=== PATIENT | female | born 1935 | race Caucasian/White ===

== ENCOUNTER → 2016-06-12 | Outpatient (CLI) | payer MEDICARE ==
[~2016-06-12] MED LIST: ALPR0.254 PO; ALPR0.2550 PO; AMLO10TA2 PO; AMLO10TA82 PO; ASCO500T5 PO; ASP81CT PO; ASPI-983 PO; ATOR10TA66 PO; CALC-250 PO; CALC-732 PO; CEFD300C3 PO; CEPH500C PO; CETI10CA PO; CHOL10003 PO; CHOL200012 PO; CHOL5000 PO; CLOP75TA28 PO; CRAN1CAP2 PO; CYAN10006 PO; CYAN100088 PO; CYAN1LOZ SL; DICY10CA12 PO; ESCI5TAB10 PO; FAMO20TA3 PO; FAMO20TA5 PO; FLT05NA16 NS; FLT11013 IH; FLUT100D IH; FLUT16SP22 NS; FLUT16SP22 NSEACH; IBUP-2055 PO; ISOS30TA3 PO; ISOS30TA7 PO; LACT1TAB11 PO; LISI-552 PO; MAGN250T13 PO; MAGN400C PO; NAPR220C11 PO; NEBI2.5T5 PO; NEBI5TAB8 PO; NFPRILOC40 PO; OMEG1CAP24 PO; OMEP20CA12 PO; OMEP20TA7 PO; OMG1KC PO; PANT40SU PO; PANT40TA2 PO; ROSU5TAB PO; RT-FLOV110 INH; SUCR1TAB PO
--- OUTSIDE RECORDS SUMMARY | 2016-06-12 11:06 | XMS REPORT | Continuity of Care Document ---
Author Author [facility] Organization [facility] Address Unknown Phone Unavailable Care Team Providers Care Vacuum Caster Name Role Phone Usman Mendez PCP [phone] Source Comments Some departments are not documenting in the electronic medical record. If you do not see the information that you expected, contact Release of Information in the Health Information Management department at [phone] for further assistance in locating additional records.[facility] Active Allergies and Adverse Reactions Not on File Current Medications Not on file Active Problems Not on file Social History Tobacco Use Types Packs/Day Years Used Date Never Assessed Plan of Care Health Maintenance Due Date Last Done Comments Physical (Comprehensive) 1940 Exam Pertussis Vaccine 1944 Tetanus Vaccine 1950 Breast Cancer Screening 1973 Shingles Vaccine 1993 Osteoporosis Screening 1998 Prevnar/Pneumovax (#1) 1998 Influenza Vaccine 11/28/2014 Results from Last 3 Months Not on file
--- NOTE | 2016-06-13 18:26 | Diagnostic Imaging Report ---
Bilateral screening mammogram The current study was also evaluated with a Computer Aided Detection (CAD) system. Indication: Screening. No current complaints stated on the questionnaire. COMPARISON: 3-2-16. FINDINGS: The breasts are composed of heterogeneously dense parenchyma which may decrease mammographic sensitivity. There are benign-appearing calcifications seen. Allowing for technique and positional differences, no suspicious change is seen. IMPRESSION: Dense breasts with no definite change. ACR BI-RADS Category 2: Benign findings. Result letter will be mailed to the patient. Note: At least 10% of breast cancer is not imaged by mammography. Dictated by: Dictated on workstation # [id number]
== END ==
LOC: RAD 11:02
PROVIDERS: ATTEND Nurse Practitioner Family
DX: Z12.31 Encounter for screening mammogram for malignant neoplasm of breast (principal)
CPT/HCPCS: 77067

== ENCOUNTER → 2016-06-23 | Outpatient (CLI) | payer MEDICARE ==
--- NOTE | 2016-06-23 13:39 | Diagnostic Imaging Report ---
INDICATION: Cough and dyspnea. TIME OF EXAMINATION: 1322 hours. TECHNIQUE: PA and lateral views of the chest were obtained. COMPARISON: 02/17/2016. FINDINGS: There is air trapping bilaterally. The heart size and pulmonary vascularity are within normal limits. There is no pneumothorax or consolidation. No significant pleural fluid is identified. IMPRESSION: Bilateral air trapping, consistent with emphysema; otherwise, no acute abnormality is detected. Dictated by: Dictated on workstation # [id number]
== END ==
LOC: RAD 12:59
PROVIDERS: ATTEND Nurse Practitioner Family
DX: J44.9 Chronic obstructive pulmonary disease, unspecified (principal); R06.00 Dyspnea, unspecified; R05 Cough
CPT/HCPCS: 71020

== ENCOUNTER 2016-06-27 15:59 | Emergency (ER) | payer MEDICARE ==
[~2016-06-27] VITALS: Ht 160 cm; Wt 59.0 kg
--- NOTE | 2016-06-27 18:08 | ED Trauma-Multisystem ---
General Chief Complaint: Trauma-Non Activation Stated Complaint: FALL Nursing Triage Note: AMBULATED TO ROOM 05 WITH COMPLAINTS OF TRIPPING OVER SHOES AND FALLING WHILE GOING TO GET THE MAIL. COMPLAINS OF STERNAL PAIN ET A CHIPPED FRONT TOOTH. Source of Information: Patient, Family Exam Limitations: No Limitations (BRIDGETTE MENDOZA MD) History of Present Illness Time Seen by Provider: 18:03 Initial Comments The patient is a 70-year-old white female known to me for 25-30 years. She reported that she had gone out to get the mail and that had tripped on her way back to the house apparently over her shoe. She pitched forward striking her chest which is quite tender on the left, both knees, and chipping her right upper incisor. She takes Plavix. Occurred: Just Prior to Arrival Pain/Injury Location: Chest, Face Method of Injury: Fall (BRIDGETTE MENDOZA MD) Allergies and Home Medications Allergies Coded Allergies: Sulfa (Sulfonamide Antibiotics) (Verified Allergy, Unknown, 03/10/06) amoxicillin (Verified Allergy, Unknown, 03/10/06) ciprofloxacin (Verified Allergy, Unknown, 01/02/16) gluten (Verified Allergy, Unknown, 01/02/16) iodamide meglumine (Verified Allergy, Unknown, 03/10/06) lactose (Verified Adverse Reaction, Mild, Diarrhea, 02/17/16) Uncoded Allergies: CONTRAST DYE (Allergy, Unknown, 12/19/13) Home Medications Alprazolam 0.25 Mg Tablet, 0.0625 MG PO QIDACHS, (Reported) TAKES 1/4 OF A (0.25 MG) TABLET Amlodipine Besylate 10 Mg Tablet, 10 MG PO DAILY, #30 Ref 2 Prescribed by: LULU ARROYO on 02/18/16 1137 Atorvastatin Calcium 10 Mg Tablet, 10 MG PO HS, #30 Ref 4 Prescribed by: LULU ARROYO on 02/18/16 1137 Cholecalciferol (Vitamin D3) 5,000 Unit Capsule, 5,000 UNIT PO DAILY, (Reported) Clopidogrel Bisulfate 75 Mg Tablet, 75 MG PO DAILY, (Reported) Cyanocobalamin (Vitamin B-12) 1,000 Mcg Tablet, 1,000 MCG PO DAILY, (Reported) Famotidine 20 Mg Tablet, 20 MG PO BID, (Reported) Fluticasone Propionate 1 Ea Aero, 2 PUFF IH BID, (Reported) Fluticasone Propionate 16 Gm Troy.susp, 1 SPRAY NSEACH DAILY, (Reported) Isosorbide Mononitrate 30 Mg Tab.er.24h, 30 MG PO DAILY, (Reported) Lactobacillus Combo No.6 1 Each Tablet, 1 CAP PO DAILY, (Reported) Lisinopril 20 Mg Tablet, 20 MG PO DAILY, #30 Ref 2 Prescribed by: LULU ARROYO on 02/18/16 1137 Nebivolol HCl 5 Mg Tablet, 2.5 MG PO BID, (Reported) TAKES 1/2 OF A (5 MG) TABLET Constitutional: see HPI Eyes: No Symptoms Reported Ears: No Symptoms Reported Nose: Other (abrasion left hip) Mouth: Loose Teeth (chipped right upper incisor) Throat: No Symptoms to Report Respiratory: no symptoms reported Cardiovascular: No Symptoms Reported Gastrointestinal: no symptoms reported Genitourinary: no symptoms reported Musculoskeletal: other (both knees hurt but she was able to walk) Skin: no symptoms reported Psychiatric/Neurological: No Symptoms Reported (BRIDGETTE MENDOZA MD) Past Cabwpmp-Udzgot-Xojdcm Hx Patient Social History Alcohol Use: Denies Use Recreational Drug Use: No Smoking Status: Never a Smoker Recent Foreign Travel: No Contact w/Someone Who Travel: No Recent Infectious Disease Expo: No Recent Hopitalizations: No (BRIDGETTE MENDOZA MD) Immunizations Up To Date Tetanus Booster (TDap): More than 5yrs Date of Pneumonia Vaccine: Feb 27, 2015 Date of Influenza Vaccine: Dec 29, 2015 (BRIDGETTE MENDOZA MD) Seasonal Allergies Seasonal Allergies: No (BRIDGETTE MENDOZA MD) Surgeries HX Surgeries: Yes (Hemorrhoids, benign bladder tumor, neck vertebra fusion, left cataraact) Surgeries: Hysterectomy (BRIDGETTE MENDOZA MD) Respiratory Hx Respiratory Disorders: Yes Respiratory Disorders: COPD (BRIDGETTE MENDOZA MD) Cardiovascular Hx Cardiac Disorders: Yes Cardiac Disorders: Hypertension (BRIDGETTE MENDOZA MD) Neurological Hx Neurological Disorders: No (BRIDGETTE MENDOZA MD) Reproductive System Hx Reproductive Disorders: No Sexually Transmitted Disease: No HIV/AIDS: No Female Reproductive Disorders: Denies HAND CELL TUBER History: Hysterectomy (BRIDGETTE MENDOZA MD) Genitourinary Hx Genitourinary Disorders: Yes (benign bladder tumor removed) Genitourinary Disorders: Bladder Infection (BRIDGETTE MENDOZA MD) Gastrointestinal Hx Gastrointestinal Disorders: Yes Gastrointestinal Disorders: Gastroesophageal Reflux, Hiatal Hernia (BRIDGETTE MENDOZA MD) Musculoskeletal Hx Musculoskeletal Disorders: Yes (Hx hammertoe surgery) Musculoskeletal Disorders: Arthritis (BRIDGETTE MENDOZA MD) Endocrine Hx Endocrine Disorders: No (BRIDGETTE MENDOZA MD) HEENT HX ENT Disorders: Yes (bilat cataract surgery) HEENT Disorders: Cataract Loss of Vision: Denies Hearing Impairment: Denies (BRIDGETTE MENDOZA MD) Cancer Hx Cancer: No (BRIDGETTE MENDOZA MD) Psychosocial Hx Psychiatric Problems: Yes Behavioral Health Disorders: Anxiety (BRIDGETTE MENDOZA MD) Integumentary HX Skin/Integumentary Disorder: No (BRIDGETTE MENDOZA MD) Blood Transfusions Hx Blood Disorders: No Adverse Reaction to a Blood Tr: No (BRIDGETTE MENDOZA MD) Family Medical History Significant Family History: No Pertinent Family Hx Family Medial History: Parkinson's disease G8 BROTHER (BRIDGETTE MENDOZA MD) Family Medial History: Parkinson's disease G8 BROTHER (FARIBA SHEA MD) Physical Exam Vital Signs Vital Sign - Last 12Hours 06/27/16 17:37 Temp 98.0 Pulse 78 Resp 16 B/P (MAP) 213/88 Pulse Ox 98 (FARIBA SHEA MD) Temperature (Fahrenheit): 98.0 General Appearance: Mild Distress Head: Other (small abrasion tip of nose) Eyes: Bilateral Eye Normal Inspection Ears, Nose, Throat: Hearing Grossly Normal, Dental Injury Neck: Full Range of Motion Cardiovascular: Regular Rate, Rhythm, No Edema, No Gallop, No JVD, No Murmur, Normal Peripheral Pulses Respiratory: Chest Non Tender, Lungs Clear, Normal Breath Sounds, No Accessory Muscle Use, No Respiratory Distress Gastrointestinal: Normal Bowel Sounds, No Organomegaly, No Pulsatile Mass, Non Tender, Soft Extremity: Normal Range of Motion, Other Neurologic/Psychiatric: Alert, Oriented x3, No Motor/Sensory Deficits, Normal Mood/Affect Skin: Normal Color, Warm/Dry Lymphatic: No Adenopathy (BRIDGETTE MENDOZA MD) Mary Coma Score Best Eye Response ([place]berry): (4) Open Spontaneously Best Verbal Response (Mary): (5) Oriented Best Motor Response ([place]berry): (6) Obeys Commands (BRIDGETTE MENDOZA MD) Progress/Results/Core Measures Results/Orders Lab Results Laboratory Tests Test 06/27/16 17:29 06/27/16 17:30 Range/Units White Blood Count 10.2 4.3-11.0 10^3/uL Red Blood Count 4.30 L 4.35-5.85 10^6/uL Hemoglobin 13.0 11.5-16.0 G/DL Hematocrit 39 35-52 % Mean Corpuscular Volume 90 80-99 FL Mean Corpuscular Hemoglobin 30 25-34 PG Mean Corpuscular Hemoglobin Concent 34 32-36 G/DL Red Cell Distribution Width 14.5 10.0-14.5 % Platelet Count 273 130-400 10^3/uL Mean Platelet Volume 10.4 7.4-10.4 FL Neutrophils (%) (Auto) 72 42-75 % Lymphocytes (%) (Auto) 18 12-44 % Monocytes (%) (Auto) 9 0-12 % Eosinophils (%) (Auto) 1 0-10 % Basophils (%) (Auto) 0 0-10 % Neutrophils # (Auto) 7.4 1.8-7.8 X 10^3 Lymphocytes # (Auto) 1.8 1.0-4.0 X 10^3 Monocytes # (Auto) 0.9 0.0-1.0 X 10^3 Eosinophils # (Auto) 0.1 0.0-0.3 10^3/uL Basophils # (Auto) 0.0 0.0-0.1 10^3/uL Prothrombin Time 13.0 12.2-14.7 SEC INR Comment 1.0 0.8-1.4 Activated Partial Thromboplast Time 30 24-35 SEC Sodium Level 131 L 135-145 MMOL/L Potassium Level 4.0 3.6-5.0 MMOL/L Chloride Level 95 L 98-107 MMOL/L Carbon Dioxide Level 28 21-32 MMOL/L Anion Gap 8 5-14 MMOL/L Blood Urea Nitrogen 15 7-18 MG/DL Creatinine 0.99 0.60-1.30 MG/DL Estimat Glomerular Filtration Rate 54 BUN/Creatinine Ratio 15 Glucose Level 101 70-105 MG/DL Calcium Level 9.4 8.5-10.1 MG/DL Total Bilirubin 0.4 0.1-1.0 MG/DL Aspartate Amino Transf (AST/SGOT) 24 5-34 U/L Alanine Aminotransferase (ALT/SGPT) 17 0-55 U/L Alkaline Phosphatase 77 40-136 U/L Total Protein 7.0 6.4-8.2 G/DL Albumin 3.9 3.2-4.5 G/DL Urine Color YELLOW Urine Clarity CLEAR Urine pH 6 5-9 Urine Specific [place] 1.010 L 1.016-1.022 Urine Protein NEGATIVE NEGATIVE Urine Glucose (UA) NEGATIVE NEGATIVE Urine Ketones NEGATIVE NEGATIVE Urine Nitrite NEGATIVE NEGATIVE Urine Bilirubin NEGATIVE NEGATIVE Urine Urobilinogen NORMAL NORMAL MG/DL Urine Leukocyte Esterase NEGATIVE NEGATIVE Urine RBC (Auto) 1+ H NEGATIVE Urine RBC NONE /HPF Urine WBC NONE /HPF Urine Squamous Epithelial Cells 0-2 /HPF Urine Crystals NONE /LPF Urine Bacteria NONE /HPF Urine Casts NONE /LPF Urine Mucus NEGATIVE /LPF Urine Culture Indicated NO (FARIBA SHEA MD) My Orders Orders - FARIBA SHEA MD Ct Chest Wo (06/27/16 18:14) Ct Head/Cervical Spine Wo (06/27/16 18:14) Saline Lock/Iv-Start (06/27/16 18:14) Protime With Inr (06/27/16 18:14) Partial Thromboplastin Time (06/27/16 18:14) Ua Culture If Indicated (06/27/16 18:14) (FARIBA SHEA MD) Vital Signs/I&O Vital Sign - Last 12Hours 06/27/16 06/27/16 17:37 19:42 Temp 98.0 98.8 Pulse 78 72 Resp 16 16 B/P (MAP) 213/88 Pulse Ox 98 99 (FARIBA SHEA MD) Blood Pressure Mean: 129 Progress Note : Time: 18:05 Progress Note Care of this patient was assumed from Dr. Mendoza. Patient complained of chest tenderness and pain with inspiration. She is concerned about internal chest injury. She also has contusion to the bridge of the nose. CT of the head and C -spine as well as CT of the chest were ordered for evaluation of her injuries. Patient does have a history of Plavix use in bleeding is therefore a valid concern. No acute traumatic injuries were found on imaging. Patient was dismissed home in good condition. (FARIBA SHEA MD) Diagnostic Imaging Diagonstic Imaging: CT Plain Films/CT/US/NM/MRI: c-spine, head Comments CT head and C-spine viewed by me and report reviewed. See report below: NAME: [facility] REC#: [id number] PT STATUS: REG ER : 1935 PHYSICIAN: FARIBA SHEA MD ADMIT DATE: 06/27/16/ER Draft Date of Exam:06/27/16 CT HEAD/CERVICAL SPINE WO PROCEDURE: CT head and CT cervical spine without contrast. TECHNIQUE: Multiple contiguous axial images were obtained through the brain and cervical spine without the use of intravenous contrast. Sagittal and coronal reformations through the cervical spine were then performed. INDICATION: 80-year-old female presents to the ER injured in fall, hit her nose, chipped front tooth, headache and neck pain, sternal pain. COMPARISON: 01/24/16 CT head without contrast: FINDINGS: Midline structures are not displaced. There are senescent changes of brain with involutional changes and mild atrophy. Some mild background chronic microvascular ischemic change age-appropriate. Baez-white differentiation is well maintained and there is no sulcal effacement. There are no abnormal extra-axial fluid collections or hemorrhage. There is calcific atherosclerosis within the carotid siphons and visualized vertebral arteries. There is some mild chronic maxillary, ethmoid sinus disease. Orbits and mastoid air cells are normal. Bone windows show no calvarial changes. IMPRESSION: 1. Senescent brain but no acute findings identified by nonenhanced CT criteria. 2. Mild chronic ethmoid and maxillary sinus disease. CT cervical spine with reconstructions: FINDINGS: Axial images and sagittal and coronal reconstructions of the cervical spine demonstrate moderate cervical spondylosis. There is partial fusion of C5, C6 and C7. There is grade 1 anterolisthesis of C7 on T1, age-indeterminate. There is also mild grade 1 anterolisthesis of C4 on C5 as well as C3 on C4 which is felt to be chronic. Vertebral body heights appear well maintained. There is a previous right laminectomy extending from C4, C5, C6 and C7. There are moderate to severe multilevel hypertrophic facet changes. No definite acute fractures identified. Prevertebral soft tissue as well as a predental space and the relationship of the dens to the lateral mass of C1 is reasonably well maintained. Parapharyngeal and paraspinous soft tissues are also grossly normal. 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 Superior mediastinum is grossly unremarkable. The visualized lung apices are also grossly normal. IMPRESSION: 1. Previous right laminectomy from C3 through C7. 2. Grade 1 anterolisthesis of C7 on T1, age indeterminate. 3. Probable chronic grade 1 anterolisthesis of C3 on C4 as well as C4 on C5, correlate clinically. Flexion-extension view of the cervical spine and/or MRI may be of further value. 4. There is moderate cervical spondylosis with multilevel hypertrophic facet changes. There are also uncovertebral osteophytes which do contribute to some neuroforaminal compromise at multiple levels. 5. 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 Additional nonemergent findings as described above. Dictated on workstation # [id number] Dict: 06/27/16 1832 Trans: 06/27/16 1843 [facility] [id number] Interpreted by: CHERIE VAZQUEZ MD Diagonstic Imaging: CT Plain Films/CT/US/NM/MRI: chest Comments CT chest viewed by me and report reviewed. See report below: NAME: [facility] REC#: [id number] PT STATUS: REG ER : 1935 PHYSICIAN: FARIBA SHEA MD ADMIT DATE: 06/27/16/ER Draft Date of Exam:06/27/16 CT CHEST WO PROCEDURE: CT chest without contrast. TECHNIQUE: Multiple contiguous axial images were obtained through the chest without the use of intravenous contrast. INDICATION: Fall with pain under sternal region. COMPARISON: None available. FINDINGS: Lungs and airway: No endoluminal lesion in the trachea or central bronchi. No pulmonic consolidation to suggest contusion or laceration. No concerning pulmonary mass or nodule. Pleura: No pleural effusion or pneumothorax. Heart and mediastinum: Visualized thyroid is normal. No evidence of mediastinal hemorrhage. No intrathoracic lymphadenopathy. Normal heart size without pericardial effusion. Tiny hiatus hernia. Normal caliber abdominal aorta with moderate atherosclerotic calcifications. Upper abdomen: No evidence of acute traumatic injury in the upper abdomen by noncontrast imaging, which is suboptimal in evaluation of the abdominal viscera. Musculoskeletal: No acute rib fracture. No acute sternal fracture. IMPRESSION: 1. No acute traumatic injury in the chest by noncontrast imaging. 2. No acute rib fracture or sternal fracture. Dictated on workstation # [id number] Dict: 06/27/16 1836 Trans: 06/27/16 1841 [facility] [id number] Interpreted by: HARRIET ORDAZ MD (FARIBA SHEA MD) Departure Impression Impression: Primary Impression: Fall on same level from tripping as cause of accidental injury Additional Impressions: Facial contusion Qualified Codes: S00.83XA - Contusion of other part of head, initial encounter Chest wall contusion Qualified Codes: S20.219A - Contusion of unspecified front wall of thorax, initial encounter Disposition: 01 HOME, SELF-CARE Condition: Stable Departure-Patient Inst. Decision time for Depature: 19:30 (FARIBA SHEA MD) Referrals: JA DURAN MD (PCP/Family) Primary Care Physician Patient Instructions: CHEST CONTUSION Add. Discharge Instructions: You may take Tylenol up to 1000 mg every 6 hours as needed for pain. Return to care if symptoms worsen. All discharge instructions reviewed with patient and/or family. Voiced understanding. BRIDGETTE MENDOZA MD Jun 27, 2016 18:08 FARIBA SHEA MD Jun 27, 2016 18:57
[2016-06-27 18:19] LABS: BASOPHILS % (AUTO) 0 % (0-10); EOSINOPHILS # (AUTO) 0.1 10^3/uL (0.0-0.3); EOSINOPHILS % (AUTO) 1 % (0-10); LYMPHOCYTES # (AUTO) 1.8 X 10^3 (1.0-4.0); LYMPHOCYTES % (AUTO) 18 % (12-44); MEAN CORPUSCULAR HEMOGLOBIN 30 PG (25-34); MEAN CORPUSCULAR HGB CONC 34 G/DL (32-36); MEAN CORPUSCULAR VOLUME 90 FL (80-99); MEAN PLATELET VOLUME 10.4 FL (7.4-10.4); MONOCYTES # (AUTO) 0.9 X 10^3 (0.0-1.0); MONOCYTES % (AUTO) 9 % (0-12); NEUTROPHILS # (AUTO) 7.4 X 10^3 (1.8-7.8); NEUTROPHILS % (AUTO) 72 % (42-75); PLATELET COUNT 273 10^3/uL (130-400); RED CELL DISTRIBUTION WIDTH 14.5 % (10.0-14.5); WHITE BLOOD COUNT 10.2 10^3/uL (4.3-11.0)
[2016-06-27 18:34] LABS: ALBUMIN 3.9 G/DL (3.2-4.5); BILIRUBIN,TOTAL 0.4 MG/DL (0.1-1.0); CALCIUM 9.4 MG/DL (8.5-10.1); CREATININE SERUM 0.99 MG/DL (0.60-1.30)
--- NOTE | 2016-06-27 18:41 | Diagnostic Imaging Report ---
PROCEDURE: CT chest without contrast. TECHNIQUE: Multiple contiguous axial images were obtained through the chest without the use of intravenous contrast. INDICATION: Fall with pain under sternal region. COMPARISON: None available. FINDINGS: Lungs and airway: No endoluminal lesion in the trachea or central bronchi. No pulmonic consolidation to suggest contusion or laceration. No concerning pulmonary mass or nodule. Pleura: No pleural effusion or pneumothorax. Heart and mediastinum: Visualized thyroid is normal. No evidence of mediastinal hemorrhage. No intrathoracic lymphadenopathy. Normal heart size without pericardial effusion. Tiny hiatus hernia. Normal caliber abdominal aorta with moderate atherosclerotic calcifications. Upper abdomen: No evidence of acute traumatic injury in the upper abdomen by noncontrast imaging, which is suboptimal in evaluation of the abdominal viscera. Musculoskeletal: No acute rib fracture. No acute sternal fracture. IMPRESSION: 1. No acute traumatic injury in the chest by noncontrast imaging. 2. No acute rib fracture or sternal fracture. Dictated by: Dictated on workstation # [id number]
[2016-06-27 18:43] LABS: BILIRUBIN,URINE NEGATIVE (NEGATIVE); KETONES,URINE NEGATIVE (NEGATIVE); LEUKOCYTE ESTERASE ,URINE NEGATIVE (NEGATIVE); NITRITE,URINE NEGATIVE (NEGATIVE); PH,URINE 6 (5-9); PROTEIN,URINE NEGATIVE (NEGATIVE); UROBILINOGEN,URINE NORMAL (NORMAL)
--- NOTE | 2016-06-27 18:44 | Diagnostic Imaging Report ---
PROCEDURE: CT head and CT cervical spine without contrast. TECHNIQUE: Multiple contiguous axial images were obtained through the brain and cervical spine without the use of intravenous contrast. Sagittal and coronal reformations through the cervical spine were then performed. INDICATION: 80-year-old female presents to the ER injured in fall, hit her nose, chipped front tooth, headache and neck pain, sternal pain. COMPARISON: 01/24/16 CT head without contrast: FINDINGS: Midline structures are not displaced. There are senescent changes of brain with involutional changes and mild atrophy. Some mild background chronic microvascular ischemic change age-appropriate. Baez-white differentiation is well maintained and there is no sulcal effacement. There are no abnormal extra-axial fluid collections or hemorrhage. There is calcific atherosclerosis within the carotid siphons and visualized vertebral arteries. There is some mild chronic maxillary, ethmoid sinus disease. Orbits and mastoid air cells are normal. Bone windows show no calvarial changes. IMPRESSION: 1. Senescent brain but no acute findings identified by nonenhanced CT criteria. 2. Mild chronic ethmoid and maxillary sinus disease. CT cervical spine with reconstructions: FINDINGS: Axial images and sagittal and coronal reconstructions of the cervical spine demonstrate moderate cervical spondylosis. There is partial fusion of C5, C6 and C7. There is grade 1 anterolisthesis of C7 on T1, age-indeterminate. There is also mild grade 1 anterolisthesis of C4 on C5 as well as C3 on C4 which is felt to be chronic. Vertebral body heights appear well maintained. There is a previous right laminectomy extending from C4, C5, C6 and C7. There are moderate to severe multilevel hypertrophic facet changes. No definite acute fractures identified. Prevertebral soft tissue as well as a predental space and the relationship of the dens to the lateral mass of C1 is reasonably well maintained. Parapharyngeal and paraspinous soft tissues are also grossly normal. 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 Superior mediastinum is grossly unremarkable. The visualized lung apices are also grossly normal. IMPRESSION: 1. Previous right laminectomy from C3 through C7. 2. Grade 1 anterolisthesis of C7 on T1, age indeterminate. 3. Probable chronic grade 1 anterolisthesis of C3 on C4 as well as C4 on C5, correlate clinically. Flexion-extension view of the cervical spine and/or MRI may be of further value. 4. There is moderate cervical spondylosis with multilevel hypertrophic facet changes. There are also uncovertebral osteophytes which do contribute to some neuroforaminal compromise at multiple levels. 5. 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 Additional nonemergent findings as described above. Dictated by: Dictated on workstation # [id number]
[2016-06-27 19:21] LABS: SQUAMOUS EPITHELIAL CELL,UR 0-2 /HPF
[2016-06-27 19:42] VITALS: BP 147/70
--- OUTSIDE RECORDS SUMMARY | 2016-07-20 09:24 | XMS REPORT | Continuity of Care Document ---
Author Author [facility] Organization [facility] Address Unknown Phone Unavailable Care Team Providers Care Seam Sewer Name Role Phone Ruthie Mendez PCP [phone] Source Comments Some departments are not documenting in the electronic medical record. If you do not see the information that you expected, contact Release of Information in the Health Information Management department at [phone] for further assistance in locating additional records.[facility] Active Allergies and Adverse Reactions Not on File Current Medications Not on file Active Problems Not on file Social History Tobacco Use Types Packs/Day Years Used Date Never Assessed Plan of Care Health Maintenance Due Date Last Done Comments Physical (Comprehensive) 1940 Exam Pertussis Vaccine 1944 Tetanus Vaccine 1950 Shingles Vaccine 1993 Osteoporosis Screening 1998 Prevnar/Pneumovax (#1) 1998 Influenza Vaccine 11/28/2016 Results from Last 3 Months Not on file
--- OUTSIDE RECORDS SUMMARY | 2016-07-20 09:26 | XMS REPORT | Continuity of Care Document ---
Author Author [facility] Organization [facility] Address Unknown Phone Unavailable Allergies Active Description Code Type Severity Reaction Onset Reported/Identified Relationship to Patient Clinical Status Yes iodamide meglumine [id number] Drug Allergy Unknown N/A 03/10/2006 Yes CONTRAST DYE CONTRAST DYE Unknown N/A 12/19/2013 Yes amoxicillin [id number] Drug Allergy Unknown N/A 01/02/2016 Yes ciprofloxacin [id number] Drug Allergy Unknown N/A 01/02/2016 Yes gluten [id number] Drug Allergy Unknown N/A 01/02/2016 Yes Sulfa (Sulfonamide Antibiotics) [id number] Drug Allergy Unknown N/A 01/02/2016 Yes lactose [id number] Drug Allergy Mild Diarrhea 02/17/2016 Medications Problems Date Dx Coded Attending Type Code Diagnosis Diagnosed By 03/04/2010 Ot 272.4 03/04/2010 Ot 401.9 03/04/2010 Ot 414.01 03/04/2010 Ot 530.11 03/04/2010 Ot 530.81 03/04/2010 Ot 553.3 03/04/2010 Ot V12.79 04/18/2010 Ot 401.9 HYPERTENSION NOS 04/18/2010 Ot 440.1 RENAL ARTERY ATHEROSCLER 04/18/2010 Ot 530.11 REFLUX ESOPHAGITIS 04/18/2010 Ot 553.3 DIAPHRAGMATIC HERNIA 05/30/2010 Ot 401.9 HYPERTENSION NOS 05/30/2010 Ot 599.0 URIN TRACT INFECTION NOS 05/30/2010 Ot 791.6 ACETONURIA 06/25/2010 Ot 789.09 ABDOMINAL PAIN, OTHER SPECIFIED SITE 11/14/2010 Ot 780.4 DIZZINESS AND GIDDINESS 11/14/2010 Ot V57.1 PHYSICAL THERAPY NEC 07/23/2011 Ot 789.09 ABDOMINAL PAIN, OTHER SPECIFIED SITE 07/31/2011 Ot 723.1 CERVICALGIA 07/31/2011 Ot V57.1 PHYSICAL THERAPY NEC 01/26/2012 Ot 401.9 HYPERTENSION NOS 01/26/2012 Ot 530.81 ESOPHAGEAL REFLUX 01/26/2012 Ot 535.50 UNSP GASTRITIS GASTRODUODENITIS W/O ME 01/26/2012 Ot 553.3 DIAPHRAGMATIC HERNIA 01/26/2012 Ot 562.10 DIVERTICULOSIS COLON (W/O MENT OF HEMORR 12/04/2012 BRIDGETTE MENDOZA MD Ot 599.0 URIN TRACT INFECTION NOS 12/04/2012 BRIDGETTE MENDOZA MD Ot 959.01 HEAD INJURY, NOS 12/04/2012 BRIDGETTE MENDOZA MD Ot E000.8 OTHER EXTERNAL CAUSE STATUS 12/04/2012 BRIDGETTE MENDOZA MD Ot E849.0 ACCIDENT IN HOME 12/04/2012 BRIDGETTE MENDOZA MD Ot E888.9 FALL NOS 12/19/2013 EVE DOMINIQUE, RON Turpin Ot 530.10 ESOPHAGITIS NOS 12/19/2013 EVE DOMINIQUE, RON Turpin Ot 535.40 OTH SPECIFIED GASTRITIS,W/O MENTION OF H 12/19/2013 RON PRADO MD Ot 535.50 UNSP GASTRITIS GASTRODUODENITIS W/O ME 12/19/2013 EVE DOMINIQUE, RON Turpin Ot 562.10 DIVERTICULOSIS COLON (W/O MENT OF HEMORR 05/24/2014 Ot V76.12 05/24/2014 Ot 723.1 05/24/2014 Ot 211.1 05/24/2014 Ot 530.11 05/24/2014 Ot 535.41 05/24/2014 Ot 553.3 05/24/2014 Ot 562.10 05/24/2014 Ot 562.10 05/24/2014 Ot 401.9 05/24/2014 Ot 440.1 05/24/2014 Ot V72.63 05/24/2014 Ot V74.8 05/24/2014 Ot V76.12 05/24/2014 Ot 401.9 05/24/2014 Ot 599.0 05/24/2014 Ot 791.6 05/24/2014 Ot 331.4 05/24/2014 Ot 473.0 05/24/2014 Ot 473.2 05/24/2014 Ot 473.3 05/24/2014 Ot 530.81 05/24/2014 Ot 787.01 05/24/2014 Ot 789.00 05/24/2014 Ot 723.1 05/24/2014 Ot V45.4 05/24/2014 Ot V72.84 05/24/2014 Ot 562.10 05/24/2014 Ot 625.9 05/24/2014 Ot 789.04 05/24/2014 Ot 397.0 05/24/2014 Ot 414.00 05/24/2014 Ot 424.0 05/24/2014 Ot 786.50 05/24/2014 Ot 414.00 05/24/2014 Ot 786.50 05/24/2014 Ot V76.12 05/24/2014 ROGER DOMINIQUE, JA Mary Ot 786.09 05/24/2014 GILMAR VILLATORO DO Ot 300.00 05/24/2014 GILMAR VILLATORO DO Ot 477.9 05/24/2014 GILMAR VILLATORO DO Ot 491.20 05/24/2014 GILMAR VILLATORO DO Ot 530.81 05/24/2014 BELEN MITTALP Ot V76.12 05/24/2014 BELEN MITTAL INSTRUCTION DEAN Ot 780.79 05/24/2014 BELEN MITTAL INSTRUCTION DEAN Ot 784.0 05/24/2014 BELEN MITTAL INSTRUCTION DEAN Ot V15.88 05/24/2014 DINA DOMINIQUE, LULU Bahena Ot 401.9 05/24/2014 DINA DOMINIQUE, LULU Bahena Ot 414.00 05/24/2014 LULU ARROYO MD Ot 786.50 05/24/2014 KISHORE PILLAI Ot 401.9 05/24/2014 KISHORE PILLAI Ot 414.00 05/24/2014 KISHORE PILLAI Ot 786.50 05/24/2014 EVE DOMINIQUE, RON Turpin Ot V72.84 07/11/2014 BELEN MITTALP Ot 786.2 08/09/2014 Ot 401.9 08/09/2014 Ot 599.0 08/09/2014 Ot 791.6 08/10/2014 JUAN DOMINIQUE, MAHSA De La Cruz Ot 562.10 DIVERTICULOSIS COLON (W/O MENT OF HEMORR 08/10/2014 JUAN DOMINIQUE, MAHSA De La Cruz Ot 569.49 RECTAL ANAL DIS NEC 01/08/2015 KASSANDRA MONTANEZ APRN Ot 491.20 01/08/2015 KASSANDRA MONTANEZ APRN Ot 786.09 03/19/2015 KASSANDRA MONTANEZ STAMPING D[employer] MAKER BENCH Ot J30.9 03/19/2015 KASSANDRA MONTANEZ STAMPING [employer] MAKER BENCH Ot J44.9 03/19/2015 KASSANDRA MONTANEZ STAMPING [employer] MAKER BENCH Ot R06.00 03/19/2015 KASSANDRA MONTANEZ STAMPING [employer] MAK[employer] BENCH Ot R07.89 03/27/2015 DINA DOMINIQUE, LULU Bahena Ot E78.5 03/27/2015 DINA DOMINIQUE, LULU Bahena Ot I10 03/27/2015 DINA DOMINIQUE, LULU Bahena Ot I25.10 03/27/2015 DINA DOMINIQUE, LULU Bahena Ot I65.23 03/27/2015 DINA DOMINIQUE, LULU Bahena Ot R07.89 06/12/2015 ROGER DOMINIQUE, JA Mary Ot Z12.31 06/20/2015 DOUGLAS MONDRAGON STAMPING D[employer] MAKER BENCH Ot K59.00 07/04/2015 DOUGLAS MONDRAGON STAMPING [employer] MAKER BENCH Ot K59.00 09/15/2015 Ot V76.12 OTH SCREEN MAMMO-MALIGN NEOPLASM OF [place] 09/15/2015 Ot 401.9 HYPERTENSION NOS 09/15/2015 Ot 440.1 RENAL ARTERY ATHEROSCLER 09/15/2015 Ot V72.63 PRE-PROCEDURAL LABORATORY EXAMINATION 09/15/2015 Ot V74.8 SCREEN-BACTERIAL DIS NEC 09/15/2015 Ot V76.12 OTH SCREEN MAMMO-MALIGN NEOPLASM OF [place] 09/15/2015 Ot 401.9 HYPERTENSION NOS 09/15/2015 Ot 599.0 URIN TRACT INFECTION NOS 09/15/2015 Ot 791.6 ACETONURIA 09/15/2015 Ot 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 09/15/2015 Ot 473.0 CHR MAXILLARY SINUSITIS 09/15/2015 Ot 473.2 CHR ETHMOIDAL SINUSITIS 09/15/2015 Ot 473.3 CHR SPHENOIDAL SINUSITIS 09/15/2015 Ot 530.81 ESOPHAGEAL REFLUX 09/15/2015 Ot 787.01 NAUSEA WITH VOMITING 09/15/2015 Ot 789.00 ABDOMINAL PAIN, UNSPECIFIED SITE 09/15/2015 Ot 723.1 CERVICALGIA 09/15/2015 Ot V45.4 ARTHRODESIS STATUS 09/15/2015 Ot V72.84 EXAM PRE-OPERATIVE NOS 09/15/2015 Ot 562.10 DIVERTICULOSIS COLON (W/O MENT OF HEMORR 09/15/2015 Ot 625.9 FEM GENITAL SYMPTOMS NOS 09/15/2015 Ot 789.04 ABDOMINAL PAIN, LEFT LOWER QUADRANT 09/15/2015 Ot 397.0 TRICUSPID VALVE DISEASE 09/15/2015 Ot 414.00 CORON ATHEROSCLER NOS TYPE VESSEL, NATIV 09/15/2015 Ot 424.0 MITRAL VALVE DISORDER 09/15/2015 Ot 786.50 CHEST PAIN NOS 09/15/2015 Ot 414.00 CORON ATHEROSCLER NOS TYPE VESSEL, NATIV 09/15/2015 Ot 786.50 CHEST PAIN NOS 09/15/2015 Ot V76.12 OTH SCREEN MAMMO-MALIGN NEOPLASM OF [place] 09/15/2015 ROGER DOMINIQUE, JA Mary Ot 786.09 RESPIRATORY ABNORM NEC 09/15/2015 GILMAR VILLATORO DO Ot 300.00 ANXIETY STATE NOS 09/15/2015 GILMAR VILLATORO DO Ot 477.9 ALLERGIC RHINITIS NOS 09/15/2015 GILMAR VILLATORO DO Ot 491.20 OBSTR CHRONIC BRONCHITIS, W/O EXACERBATI 09/15/2015 GILMAR VILLATORO DO Ot 530.81 ESOPHAGEAL REFLUX 09/15/2015 BELEN MITTALP Ot V76.12 OTH SCREEN MAMMO-MALIGN NEOPLASM OF [place] 09/15/2015 BELEN MITTAL INSTRUCTION DEAN Ot 780.79 OTH MALAISE FATIGUE 09/15/2015 BELEN MITTAL INSTRUCTION DEAN Ot 784.0 HEADACHE 09/15/2015 BELEN MITTAL INSTRUCTION DEAN Ot V15.88 HISTORY OF FALL 09/15/2015 DINA DOMINIQUE, LULU Bahena Ot 401.9 HYPERTENSION NOS 09/15/2015 LULU ARROYO MD Ot 414.00 CORON ATHEROSCLER NOS TYPE VESSEL, NATIV 09/15/2015 LULU ARROYO MD Ot 786.50 CHEST PAIN NOS 09/15/2015 KISHORE PILLAI Ot 401.9 HYPERTENSION NOS 09/15/2015 KISHORE PILLAI Ot 414.00 CORON ATHEROSCLER NOS TYPE VESSEL, NATIV 09/15/2015 KISHORE PILLAI Ot 786.50 CHEST PAIN NOS 09/15/2015 EVE DOMINIQUE, RON Turpin Ot V72.84 EXAM PRE-OPERATIVE NOS 09/15/2015 Ot V76.12 OTH SCREEN MAMMO-MALIGN NEOPLASM OF [place] 09/15/2015 MITTALBELEN INSTRUCTION DEAN Ot 786.2 COUGH 09/15/2015 JUAN DOMINIQUE, MAHSA De La Cruz Ot V72.84 EXAM PRE-OPERATIVE NOS 09/15/2015 KASSANDRA MONTANEZ STAMPING [employer] MAK[employer] BENCH Ot 491.20 OBSTR CHRONIC BRONCHITIS, W/O EXACERBATI 09/15/2015 KASSANDRA MONTANEZ STAMPING [employer] MAKER BENCH Ot 786.09 RESPIRATORY ABNORM NEC 09/15/2015 KASSANDRA MONTANEZ STAMPING [employer] MAKER BENCH Ot J30.9 ALLERGIC RHINITIS, UNSPECIFIED 09/15/2015 KASSANDRA MONTANEZ STAMPING D[employer] MAKER BENCH Ot J44.9 CHRONIC OBSTRUCTIVE PULMONARY DISEASE , U 09/15/2015 KASSANDRA MONTANEZ APRN Ot R06.00 DYSPNEA, UNSPECIFIED 09/15/2015 KASSANDRA MONTANEZ STAMPING [employer] MAKER BENCH Ot R07.89 OTHER CHEST PAIN 09/15/2015 LULU ARROYO MD Ot E78.5 HYPERLIPIDEMIA, UNSPECIFIED 09/15/2015 LULU ARROYO MD Ot I10 ESSENTIAL (PRIMARY) HYPERTENSION 09/15/2015 LULU ARROYO MD Ot I25.10 ATHSCL HEART DISEASE OF [place] CORONARY 09/15/2015 LULU ARROYO MD Ot I65.23 OCCLUSION AND STENOSIS OF BILATERAL [place] 09/15/2015 LULU ARROYO MD Ot R07.89 OTHER CHEST PAIN 09/15/2015 JA DURAN MD Ot Z12.31 ENCNTR SCREEN MAMMOGRAM FOR MALIGNANT NE 09/15/2015 DOUGLAS MONDRAGON STAMPING [employer] MAKER BENCH Ot K59.00 CONSTIPATION, UNSPECIFIED 09/15/2015 JA DURAN MD Ot E78.5 HYPERLIPIDEMIA, UNSPECIFIED 09/15/2015 JA DURAN MD Ot F41.9 ANXIETY DISORDER, UNSPECIFIED 09/15/2015 JA DURAN MD Ot I10 ESSENTIAL (PRIMARY) HYPERTENSION 09/15/2015 JA DURAN MD Ot I25.10 ATHSCL HEART DISEASE OF [place] CORONARY 09/15/2015 JA DURAN MD Ot I65.23 OCCLUSION AND STENOSIS OF BILATERAL WHITE 09/15/2015 JA DURAN MD Ot J44.9 CHRONIC OBSTRUCTIVE PULMONARY DISEASE, U 09/15/2015 JA DURAN MD Ot K21.9 GASTRO-ESOPHAGEAL REFLUX DISEASE WITHOUT 09/15/2015 JA DURAN MD Ot K27.9 PEPTIC ULC, SITE UNSP, UNSP AC OR CHR 09/15/2015 JA DURAN MD Ot K44.9 DIAPHRAGMATIC HERNIA WITHOUT OBSTRUCTION 09/15/2015 JA DURAN MD Ot R07.89 OTHER CHEST PAIN 09/15/2015 JA DURAN MD Ot R53.83 OTHER FATIGUE 12/20/2015 DOUGLAS MONDRAGON STAMPING [employer] MAKER BENCH Ot R19.7 DIARRHEA, UNSPECIFIED 12/31/2015 DOUGLAS MONDRAGON STAMPING [employer] MAKER BENCH Ot R19.7 DIARRHEA, UNSPECIFIED 01/02/2016 MARYCRUZ RUVALCABA MD Ot K21.0 GASTRO-ESOPHAGEAL REFLUX DISEASE WITH ES 01/02/2016 MARYCRUZ RUVALCABA MD Ot K22.2 ESOPHAGEAL OBSTRUCTION 01/02/2016 MARYCRUZ RUVALCABA MD Ot K29.70 GASTRITIS, UNSPECIFIED, WITHOUT BLEEDING 01/02/2016 MARYCRUZ RUVALCABA MD Ot K44.9 DIAPHRAGMATIC HERNIA WITHOUT OBSTRUCTION 01/02/2016 MARYCRUZ RUVALCABA MD Ot K02.9 DENTAL CARIES, UNSPECIFIED 01/02/2016 MEGAN RUVALCABA MDAAOLIVER Ot Z01.818 ENCOUNTER FOR OTHER PREPROCEDURAL EXAMIN 01/03/2016 MARYCRUZ RUVALCABA MD Ot K21.0 GASTRO-ESOPHAGEAL REFLUX DISEASE WITH ES 01/03/2016 MARYCRUZ RUVALCABA MD Ot K22.2 ESOPHAGEAL OBSTRUCTION 01/03/2016 MARYCRUZ RUVALCABA MD Ot K29.70 GASTRITIS, UNSPECIFIED, WITHOUT BLEEDING 01/03/2016 MARYCRUZ RUVALCABA MD Ot K44.9 DIAPHRAGMATIC HERNIA WITHOUT OBSTRUCTION 01/07/2016 EVE DOMINIQUE, RON Turpin Ot R10.13 EPIGASTRIC PAIN 01/07/2016 RON PRADO MD Ot Z01.818 ENCOUNTER FOR OTHER PREPROCEDURAL EXAMIN 01/08/2016 MARYCRUZ RUVALCABA MD Ot K21.0 GASTRO-ESOPHAGEAL REFLUX DISEASE WITH ES 01/08/2016 MARYCRUZ RUVALCABA MD Ot K22.2 ESOPHAGEAL OBSTRUCTION 01/08/2016 MARYCRUZ RUVALCABA MD Ot K29.70 GASTRITIS, UNSPECIFIED, WITHOUT BLEEDING 01/08/2016 MARYCRUZ RUVALCABA MD Ot K44.9 DIAPHRAGMATIC HERNIA WITHOUT OBSTRUCTION 01/09/2016 EVE DOMINIQUE, RON Turpin Ot R10.13 EPIGASTRIC PAIN 01/09/2016 EVE DOMINIQUE, RON Turpin Ot Z01.818 ENCOUNTER FOR OTHER PREPROCEDURAL EXAMIN 01/17/2016 JORDON DOMINIQUE, MARYCRUZ Ot K21.0 GASTRO-ESOPHAGEAL REFLUX DISEASE WITH ES 01/17/2016 MARYCRUZ RUVALCABA MD Ot K22.2 ESOPHAGEAL OBSTRUCTION 01/17/2016 MARYCRUZ RUVALCABA MD Ot K29.70 GASTRITIS, UNSPECIFIED, WITHOUT BLEEDING 01/17/2016 MARYCRUZ RUVALCABA MD Ot K44.9 DIAPHRAGMATIC HERNIA WITHOUT OBSTRUCTION 01/22/2016 DOUGLAS MONDRAGON STAMPING D[employer] MAKER BENCH Ot G45.9 TRANSIENT CEREBRAL ISCHEMIC ATTACK, UNSP 01/22/2016 DOUGLAS MONDRAGON STAMPING D[employer] MAKER BENCH Ot H53.9 UNSPECIFIED VISUAL DISTURBANCE 01/22/2016 DOUGLAS MONDRAGON STAMPING D[employer] MAKER BENCH Ot R51 HEADACHE 01/23/2016 DOUGLAS MONDRAGON STAMPING D[employer] MAKER BENCH Ot G45.9 TRANSIENT CEREBRAL ISCHEMIC ATTACK, UNSP 01/23/2016 DOUGLAS MONDRAGON STAMPING DIE MAKER BENCH Ot H53.9 UNSPECIFIED VISUAL DISTURBANCE 01/23/2016 DOUGLAS MONDRAGON STAMPING DIE MAKER BENCH Ot R51 HEADACHE 01/24/2016 DOUGLAS MONDRAGON STAMPING DIE MAKER BENCH Ot G45.9 TRANSIENT CEREBRAL ISCHEMIC ATTACK, UNSP 01/24/2016 DOUGLAS MONDRAGON STAMPING DIE MAKER BENCH Ot H53.9 UNSPECIFIED VISUAL DISTURBANCE 01/24/2016 DOUGLAS MONDRAGON STAMPING DIE MAKER BENCH Ot R51 HEADACHE 01/25/2016 DOUGLAS MONDRAGON STAMPING DIE MAKER BENCH Ot G45.9 TRANSIENT CEREBRAL ISCHEMIC ATTACK, UNSP 01/25/2016 DOUGLAS MONDRAGON STAMPING DIE MAKER BENCH Ot H53.9 UNSPECIFIED VISUAL DISTURBANCE 01/25/2016 DOUGLAS MONDRAGON STAMPING DIE MAKER BENCH Ot R51 HEADACHE 01/25/2016 LULU ARROYO MD Ot E78.2 MIXED HYPERLIPIDEMIA 01/25/2016 LULU ARROYO MD Ot I73.9 PERIPHERAL VASCULAR DISEASE, UNSPECIFIED 01/25/2016 LULU ARROYO MD Ot Z86.73 PRSNL HX OF TIA (TIA), AND CEREB INFRC W 01/29/2016 LULU ARROYO MD Ot R07.89 OTHER CHEST PAIN 01/30/2016 LULU ARROYO MD Ot E78.2 MIXED HYPERLIPIDEMIA 01/30/2016 LULU ARROYO MD Ot I10 ESSENTIAL (PRIMARY) HYPERTENSION 01/30/2016 LULU ARROYO MD Ot I25.10 ATHSCL HEART DISEASE OF [place] CORONARY 01/30/2016 LULU ARROYO MD Ot I65.23 OCCLUSION AND STENOSIS OF BILATERAL WHITE 01/30/2016 LULU ARROYO MD Ot I73.9 PERIPHERAL VASCULAR DISEASE, UNSPECIFIED 01/30/2016 LULU ARROYO MD Ot R06.00 DYSPNEA, UNSPECIFIED 01/30/2016 LULU ARROYO MD Ot R07.89 OTHER CHEST PAIN 01/31/2016 LULU ARROYO MD Ot E78.2 MIXED HYPERLIPIDEMIA 01/31/2016 LULU ARROYO MD Ot I10 ESSENTIAL (PRIMARY) HYPERTENSION 01/31/2016 LULU ARROYO MD Ot I25.10 ATHSCL HEART DISEASE OF [place] CORONARY 01/31/2016 LULU ARROYO MD Ot I65.23 OCCLUSION AND STENOSIS OF BILATERAL WHITE 01/31/2016 LULU ARROYO MD Ot I73.9 PERIPHERAL VASCULAR DISEASE, UNSPECIFIED 01/31/2016 LULU ARROYO MD Ot R06.00 DYSPNEA, UNSPECIFIED 01/31/2016 LULU ARROYO MD Ot R07.89 OTHER CHEST PAIN 02/01/2016 DOUGLAS MONDRAGON STAMPING DIE MAKER BENCH Ot G45.9 TRANSIENT CEREBRAL ISCHEMIC ATTACK, UNSP 02/01/2016 DOUGLAS MONDRAGON STAMPING DIE MAKER BENCH Ot H53.9 UNSPECIFIED VISUAL DISTURBANCE 02/01/2016 DOUGLAS MONDRAGON STAMPING DIE MAKER BENCH Ot R51 HEADACHE 02/05/2016 LULU ARROYO MD Ot E78.2 MIXED HYPERLIPIDEMIA 02/05/2016 LULU ARROYO MD Ot I73.9 PERIPHERAL VASCULAR DISEASE, UNSPECIFIED 02/05/2016 LULU ARROYO MD Ot Z86.73 PRSNL HX OF TIA (TIA), AND CEREB INFRC W 02/12/2016 LULU ARROYO MD Ot E78.2 MIXED HYPERLIPIDEMIA 02/12/2016 LULU ARROYO MD Ot I10 ESSENTIAL (PRIMARY) HYPERTENSION 02/12/2016 LULU ARROYO MD Ot I25.10 ATHSCL HEART DISEASE OF [place] CORONARY 02/12/2016 LULU ARROYO MD Ot I65.23 OCCLUSION AND STENOSIS OF BILATERAL WHITE 02/12/2016 LULU ARROYO MD Ot I73.9 PERIPHERAL VASCULAR DISEASE, UNSPECIFIED 02/12/2016 LULU ARROYO MD Ot R06.00 DYSPNEA, UNSPECIFIED 02/12/2016 LULU ARROYO MD Ot R07.89 OTHER CHEST PAIN 02/18/2016 LULU ARROYO MD Ot E78.5 HYPERLIPIDEMIA, UNSPECIFIED 02/18/2016 LULU ARROYO MD Ot F41.9 ANXIETY DISORDER, UNSPECIFIED 02/18/2016 LULU ARROYO MD Ot I10 ESSENTIAL (PRIMARY) HYPERTENSION 02/18/2016 LULU ARROYO MD Ot 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 02/18/2016 LULU ARROYO MD Ot I25.10 ATHSCL HEART DISEASE OF [place] CORONARY 02/18/2016 LLUU ARROYO MD Ot I73.9 PERIPHERAL VASCULAR DISEASE, UNSPECIFIED 02/18/2016 LULU ARROYO MD Ot J44.9 CHRONIC OBSTRUCTIVE PULMONARY DISEASE, U 02/18/2016 LULU ARROYO MD Ot K21.9 GASTRO-ESOPHAGEAL REFLUX DISEASE WITHOUT 02/18/2016 LULU ARROYO MD Ot K29.70 GASTRITIS, UNSPECIFIED, WITHOUT BLEEDING 02/18/2016 LULU ARROYO MD Ot K44.9 DIAPHRAGMATIC HERNIA WITHOUT OBSTRUCTION 02/18/2016 LULU ARROYO MD Ot R07.9 CHEST PAIN, UNSPECIFIED 02/28/2016 Ot 401.9 HYPERTENSION NOS 02/28/2016 Ot 599.0 URIN TRACT INFECTION NOS 02/28/2016 Ot 791.6 ACETONURIA 04/30/2016 Ot 401.9 HYPERTENSION NOS 04/30/2016 Ot 599.0 URIN TRACT INFECTION NOS 04/30/2016 Ot 791.6 ACETONURIA 06/12/2016 DOUGLAS MONDRAGON STAMPING DIE MAKER BENCH Ot Z12.31 ENCNTR SCREEN MAMMOGRAM FOR MALIGNANT NE 06/13/2016 DOUGLAS MONDRAGON STAMPING DIE MAKER BENCH Ot Z12.31 ENCNTR SCREEN MAMMOGRAM FOR MALIGNANT NE 06/18/2016 DOUGLAS MONDRAGON STAMPING DIE MAKER BENCH Ot Z12.31 ENCNTR SCREEN MAMMOGRAM FOR MALIGNANT NE 06/24/2016 KASSANDRA MONTANEZ APRN Ot J44.9 CHRONIC OBSTRUCTIVE PULMONARY DISEASE , U 06/24/2016 KASSANDRA MONTANEZ APRN Ot R05 COUGH 06/24/2016 TARIK, KASSANDRA E STAMPING DIE MAKER BENCH Ot R06.00 DYSPNEA, UNSPECIFIED 06/24/2016 DOUGLAS MONDRAGON STAMPING DIE MAKER BENCH Ot Z12.31 ENCNTR SCREEN MAMMOGRAM FOR MALIGNANT NE 06/28/2016 Ot 401.9 HYPERTENSION NOS 06/28/2016 Ot 599.0 URIN TRACT INFECTION NOS 06/28/2016 Ot 791.6 ACETONURIA 07/03/2016 FARIBA SHEA MD Ot I65.23 OCCLUSION AND STENOSIS OF BILATERAL WHITE 07/03/2016 FARIBA SHEA MD, Ot J44.9 CHRONIC OBSTRUCTIVE PULMONARY DISEASE , U 07/03/2016 FARIBA SHEA MD, Ot M43.12 SPONDYLOLISTHESIS, CERVICAL REGION 07/03/2016 FARIBA SHEA MD Ot S00.33XA CONTUSION OF NOSE, INITIAL ENCOUNTER 07/03/2016 FARIBA SHEA MD Ot S09.93XA UNSPECIFIED INJURY OF FACE, INITIAL ENCO 07/03/2016 FARIBA SHEA MD Ot S20.212A CONTUSION OF LEFT FRONT WALL OF THORAX, 07/03/2016 FARIBA SHEA MD Ot W01.0XXA FALL SAME LEV FROM SLIP/TRIP W/O STRIKE 07/03/2016 FARIBA SHEA MD Ot Y92.017 GARDEN OR YARD IN SINGLE-FAMILY ( PRIVATE 07/03/2016 FARIBA SHEA MD Ot Y99.8 OTHER EXTERNAL CAUSE STATUS 07/03/2016 FARIBA SHEA MD, Ot Z79.02 CUSTODIAL (CURRENT) USE OF ANTITHROMBOTI 07/03/2016 FARIBA SHEA MD, Ot Z79.899 OTHER CUSTODIAL (CURRENT) DRUG THERAPY 07/03/2016 FARIBA SHEA MD, Ot Z98.1 ARTHRODESIS STATUS Procedures Results Test Result Range Stool occult blood screen - 12/19/15 00:00 Stool gastrointestinal hemoglobin detection NEGATIVE NEGATIVE Clostridium difficile detection - 12/19/15 00:00 C DIFF MOLECULAR RESULT Negative for toxigenic C diff by DNA amplification [facility] Stool bacteria identification by culture - 12/19/15 00:00 Ova and parasites - 12/19/15 00:00 DATE OF REF LAB REPORT 12/27/2015 NR OTP NEGATIVE RESULT PARASITES NOT FOUND [facility] Complete blood count (CBC) with automated white blood cell (WBC) differential - 02/16/16 23:57 Blood leukocytes automated count (number/volume) 6.4 10*3/ uL 4.3-11.0 Blood erythrocytes automated count (number/volume) 4.23 10*6 /uL 4.35-5.85 Venous blood hemoglobin measurement (mass/volume) 12.6 g/dL 11.5-16.0 Blood hematocrit (volume fraction) 37 % 35-52 Automated erythrocyte mean corpuscular volume 88 [foz_us] 80-99 Automated erythrocyte mean corpuscular hemoglobin (mass per erythrocyte) 30 pg 25-34 Automated erythrocyte mean corpuscular hemoglobin concentration measurement ( mass/volume) 34 g/dL 32-36 Automated erythrocyte distribution width ratio 13.8 % 10.0-14.5 Automated blood platelet count (count/volume) 296 10*3/uL 130-400 Automated blood platelet mean volume measurement 9.4 [foz_us ] 7.4-10.4 Automated blood neutrophils/100 leukocytes 47 % 42-75 Automated blood lymphocytes/100 leukocytes 35 % 12-44 Blood monocytes/100 leukocytes 12 % 0-12 Automated blood eosinophils/100 leukocytes 6 % 0-10 Automated blood basophils/100 leukocytes 1 % 0-10 Blood neutrophils automated count (number/volume) 3.0 10*3 1.8-7.8 Blood lymphocytes automated count (number/volume) 2.2 10*3 1.0-4.0 Blood monocytes automated count (number/volume) 0.8 10*3 0.0-1.0 Automated eosinophil count 0.4 10*3/uL 0.0-0.3 Automated blood basophil count (count/volume) 0.1 10*3/uL 0.0-0.1 PT panel in platelet poor plasma by coagulation assay - 02/16/16 23:57 Prothrombin time (PT) in platelet poor plasma by coagulation assay 12.7 s 12.2-14.7 INR in platelet poor plasma or blood by coagulation assay 1.0 0.8-1.4 Activated partial thromboplastin time (aPTT) in platelet poor plasma bycoagulation assay - 02/16/16 23:57 Activated partial thromboplastin time (aPTT) in platelet poor plasma bycoagulation assay 30 s 24-35 Fibrin D-dimer FEU measurement in platelet poor plasma (mass/volume) - 23:57 Fibrin D-dimer FEU measurement in platelet poor plasma (mass/volume) 0.51 ug/mL 0.00-0.49 Comprehensive metabolic panel - 02/16/16 23:57 Serum or plasma sodium measurement (moles/volume) 134 mmol/ L 135-145 Serum or plasma potassium measurement (moles/volume) 3.6 mmol/L 3.6-5.0 Serum or plasma chloride measurement (moles/volume) 100 mmol /L 98-107 Carbon dioxide 22 mmol/L 21-32 Serum or plasma anion gap determination (moles/volume) 12 mmol/L 5-14 Serum or plasma urea nitrogen measurement (mass/volume) 9 mg /dL 7-18 Serum or plasma creatinine measurement (mass/volume) 0.78 mg /dL 0.60-1.30 Serum or plasma urea nitrogen/creatinine mass ratio 12 NRG Serum or plasma creatinine measurement with calculation of estimated glomerular filtration rate > NRG Serum or plasma glucose measurement (mass/volume) 101 mg/dL 70-105 Serum or plasma calcium measurement (mass/volume) 9.7 mg/dL 8.5-10.1 Serum or plasma total bilirubin measurement (mass/volume) 0.6 mg/dL 0.1-1.0 Serum or plasma alkaline phosphatase measurement (enzymatic activity/volume) 81 U/L 40-136 Serum or plasma aspartate aminotransferase measurement (enzymatic activity/ volume) 21 U/L 5-34 Serum or plasma alanine aminotransferase measurement (enzymatic activity/volume ) 19 U/L 0-55 Serum or plasma protein measurement (mass/volume) 6.7 g/dL 6.4-8.2 Serum or plasma albumin measurement (mass/volume) 4.0 g/dL 3.2-4.5 Magnesium - 02/16/16 23:57 Magnesium 2.1 mg/dL 1.8-2.4 Serum or plasma troponin i.cardiac measurement (mass/volume) - 02/16/16 23:57 Serum or plasma troponin i.cardiac measurement (mass/volume) < ng/mL <0.30 Myoglobin, serum - 02/16/16 23:57 Myoglobin, serum 59.6 ng/mL 10.0-92.0 Lipase - 02/16/16 23:57 Lipase 44 U/L 8-78 Serum or plasma lithium measurement (moles/volume) - 02/16/16 23:57 BNP level 93.4 pg/mL <100.0 Complete blood count (CBC) with automated white blood cell (WBC) differential - 02/17/16 05:10 Blood leukocytes automated count (number/volume) 5.7 10*3/ uL 4.3-11.0 Blood erythrocytes automated count (number/volume) 3.92 10*6 /uL 4.35-5.85 Venous blood hemoglobin measurement (mass/volume) 11.6 g/dL 11.5-16.0 Blood hematocrit (volume fraction) 35 % 35-52 Automated erythrocyte mean corpuscular volume 88 [foz_us] 80-99 Automated erythrocyte mean corpuscular hemoglobin (mass per erythrocyte) 30 pg 25-34 Automated erythrocyte mean corpuscular hemoglobin concentration measurement ( mass/volume) 34 g/dL 32-36 Automated erythrocyte distribution width ratio 13.8 % 10.0-14.5 Automated blood platelet count (count/volume) 276 10*3/uL 130-400 Automated blood platelet mean volume measurement 10.1 [foz_ us] 7.4-10.4 Automated blood neutrophils/100 leukocytes 58 % 42-75 Automated blood lymphocytes/100 leukocytes 24 % 12-44 Blood monocytes/100 leukocytes 14 % 0-12 Automated blood eosinophils/100 leukocytes 4 % 0-10 Automated blood basophils/100 leukocytes 1 % 0-10 Blood neutrophils automated count (number/volume) 3.3 10*3 1.8-7.8 Blood lymphocytes automated count (number/volume) 1.4 10*3 1.0-4.0 Blood monocytes automated count (number/volume) 0.8 10*3 0.0-1.0 Automated eosinophil count 0.2 10*3/uL 0.0-0.3 Automated blood basophil count (count/volume) 0.1 10*3/uL 0.0-0.1 Comprehensive metabolic panel - 02/17/16 05:10 Serum or plasma sodium measurement (moles/volume) 133 mmol/ L 135-145 Serum or plasma potassium measurement (moles/volume) 4.2 mmol/L 3.6-5.0 Serum or plasma chloride measurement (moles/volume) 102 mmol /L 98-107 Carbon dioxide 22 mmol/L 21-32 Serum or plasma anion gap determination (moles/volume) 9 mmol/L 5-14 Serum or plasma urea nitrogen measurement (mass/volume) 9 mg /dL 7-18 Serum or plasma creatinine measurement (mass/volume) 0.73 mg /dL 0.60-1.30 Serum or plasma urea nitrogen/creatinine mass ratio 12 NRG Serum or plasma creatinine measurement with calculation of estimated glomerular filtration rate > NRG Serum or plasma glucose measurement (mass/volume) 91 mg/dL 70-105 Serum or plasma calcium measurement (mass/volume) 9.4 mg/dL 8.5-10.1 Serum or plasma total bilirubin measurement (mass/volume) 0.5 mg/dL 0.1-1.0 Serum or plasma alkaline phosphatase measurement (enzymatic activity/volume) 71 U/L 40-136 Serum or plasma aspartate aminotransferase measurement (enzymatic activity/ volume) 22 U/L 5-34 Serum or plasma alanine aminotransferase measurement (enzymatic activity/volume ) 17 U/L 0-55 Serum or plasma protein measurement (mass/volume) 6.1 g/dL 6.4-8.2 Serum or plasma albumin measurement (mass/volume) 3.5 g/dL 3.2-4.5 Serum or plasma creatine kinase measurement (enzymatic activity/volume) - 02/16 05:10 Serum or plasma creatine kinase measurement (enzymatic activity/volume) 52 U/L 29-168 Serum or plasma troponin i.cardiac measurement (mass/volume) - 02/17/16 05:10 Serum or plasma troponin i.cardiac measurement (mass/volume) < ng/mL <0.30 Myoglobin, serum - 02/17/16 05:10 Myoglobin, serum 59.6 ng/mL 10.0-92.0 Lipid 1996 panel - 02/17/16 05:10 Serum or plasma triglyceride measurement (mass/volume) 86 mg /dL <150 Serum or plasma cholesterol measurement (mass/volume) 204 mg /dL < 200 Serum or plasma cholesterol in HDL measurement (mass/volume) 57 mg/dL 40-60 Cholesterol in LDL [mass/volume] in serum or plasma by direct assay 128 mg/dL 1-129 Serum or plasma cholesterol in VLDL measurement (mass/volume) 17 mg/dL 5-40 Automated blood complete blood count (hemogram) panel - 02/18/16 04:00 Blood leukocytes automated count (number/volume) 4.9 10*3/ uL 4.3-11.0 Blood erythrocytes automated count (number/volume) 4.18 10*6 /uL 4.35-5.85 Venous blood hemoglobin measurement (mass/volume) 12.5 g/dL 11.5-16.0 Blood hematocrit (volume fraction) 37 % 35-52 Automated erythrocyte mean corpuscular volume 88 [foz_us] 80-99 Automated erythrocyte mean corpuscular hemoglobin (mass per erythrocyte) 30 pg 25-34 Automated erythrocyte mean corpuscular hemoglobin concentration measurement ( mass/volume) 34 g/dL 32-36 Automated erythrocyte distribution width ratio 13.8 % 10.0-14.5 Automated blood platelet count (count/volume) 289 10*3/uL 130-400 Automated blood platelet mean volume measurement 10.3 [foz_ us] 7.4-10.4 Comprehensive metabolic panel - 02/18/16 04:00 Serum or plasma sodium measurement (moles/volume) 136 mmol/ L 135-145 Serum or plasma potassium measurement (moles/volume) 3.9 mmol/L 3.6-5.0 Serum or plasma chloride measurement (moles/volume) 104 mmol /L 98-107 Carbon dioxide 22 mmol/L 21-32 Serum or plasma anion gap determination (moles/volume) 10 mmol/L 5-14 Serum or plasma urea nitrogen measurement (mass/volume) 8 mg /dL 7-18 Serum or plasma creatinine measurement (mass/volume) 0.72 mg /dL 0.60-1.30 Serum or plasma urea nitrogen/creatinine mass ratio 11 NRG Serum or plasma creatinine measurement with calculation of estimated glomerular filtration rate > NRG Serum or plasma glucose measurement (mass/volume) 94 mg/dL 70-105 Serum or plasma calcium measurement (mass/volume) 8.9 mg/dL 8.5-10.1 Serum or plasma total bilirubin measurement (mass/volume) 0.8 mg/dL 0.1-1.0 Serum or plasma alkaline phosphatase measurement (enzymatic activity/volume) 70 U/L 40-136 Serum or plasma aspartate aminotransferase measurement (enzymatic activity/ volume) 18 U/L 5-34 Serum or plasma alanine aminotransferase measurement (enzymatic activity/volume ) 16 U/L 0-55 Serum or plasma protein measurement (mass/volume) 6.1 g/dL 6.4-8.2 Serum or plasma albumin measurement (mass/volume) 3.6 g/dL 3.2-4.5 Lipid 1996 panel - 02/18/16 04:00 Serum or plasma triglyceride measurement (mass/volume) 114 mg/dL <150 Serum or plasma cholesterol measurement (mass/volume) 205 mg /dL < 200 Serum or plasma cholesterol in HDL measurement (mass/volume) 55 mg/dL 40-60 Cholesterol in LDL [mass/volume] in serum or plasma by direct assay 132 mg/dL 1-129 Serum or plasma cholesterol in VLDL measurement (mass/volume) 23 mg/dL 5-40 Complete blood count (CBC) with automated white blood cell (WBC) differential - 06/27/16 17:29 Blood leukocytes automated count (number/volume) 10.2 10*3/ uL 4.3-11.0 Blood erythrocytes automated count (number/volume) 4.30 10*6 /uL 4.35-5.85 Venous blood hemoglobin measurement (mass/volume) 13.0 g/dL 11.5-16.0 Blood hematocrit (volume fraction) 39 % 35-52 Automated erythrocyte mean corpuscular volume 90 [foz_us] 80-99 Automated erythrocyte mean corpuscular hemoglobin (mass per erythrocyte) 30 pg 25-34 Automated erythrocyte mean corpuscular hemoglobin concentration measurement ( mass/volume) 34 g/dL 32-36 Automated erythrocyte distribution width ratio 14.5 % 10.0-14.5 Automated blood platelet count (count/volume) 273 10*3/uL 130-400 Automated blood platelet mean volume measurement 10.4 [foz_ us] 7.4-10.4 Automated blood neutrophils/100 leukocytes 72 % 42-75 Automated blood lymphocytes/100 leukocytes 18 % 12-44 Blood monocytes/100 leukocytes 9 % 0-12 Automated blood eosinophils/100 leukocytes 1 % 0-10 Automated blood basophils/100 leukocytes 0 % 0-10 Blood neutrophils automated count (number/volume) 7.4 10*3 1.8-7.8 Blood lymphocytes automated count (number/volume) 1.8 10*3 1.0-4.0 Blood monocytes automated count (number/volume) 0.9 10*3 0.0-1.0 Automated eosinophil count 0.1 10*3/uL 0.0-0.3 Automated blood basophil count (count/volume) 0.0 10*3/uL 0.0-0.1 PT panel in platelet poor plasma by coagulation assay - 06/27/16 17:29 Prothrombin time (PT) in platelet poor plasma by coagulation assay 13.0 s 12.2-14.7 INR in platelet poor plasma or blood by coagulation assay 1.0 0.8-1.4 Activated partial thromboplastin time (aPTT) in platelet poor plasma bycoagulation assay - 06/27/16 17:29 Activated partial thromboplastin time (aPTT) in platelet poor plasma bycoagulation assay 30 s 24-35 Comprehensive metabolic panel - 06/27/16 17:29 Serum or plasma sodium measurement (moles/volume) 131 mmol/ L 135-145 Serum or plasma potassium measurement (moles/volume) 4.0 mmol/L 3.6-5.0 Serum or plasma chloride measurement (moles/volume) 95 mmol/ L 98-107 Carbon dioxide 28 mmol/L 21-32 Serum or plasma anion gap determination (moles/volume) 8 mmol/L 5-14 Serum or plasma urea nitrogen measurement (mass/volume) 15 mg/dL 7-18 Serum or plasma creatinine measurement (mass/volume) 0.99 mg /dL 0.60-1.30 Serum or plasma urea nitrogen/creatinine mass ratio 15 NRG Serum or plasma creatinine measurement with calculation of estimated glomerular filtration rate 54 NRG Serum or plasma glucose measurement (mass/volume) 101 mg/dL 70-105 Serum or plasma calcium measurement (mass/volume) 9.4 mg/dL 8.5-10.1 Serum or plasma total bilirubin measurement (mass/volume) 0.4 mg/dL 0.1-1.0 Serum or plasma alkaline phosphatase measurement (enzymatic activity/volume) 77 U/L 40-136 Serum or plasma aspartate aminotransferase measurement (enzymatic activity/ volume) 24 U/L 5-34 Serum or plasma alanine aminotransferase measurement (enzymatic activity/volume ) 17 U/L 0-55 Serum or plasma protein measurement (mass/volume) 7.0 g/dL 6.4-8.2 Serum or plasma albumin measurement (mass/volume) 3.9 g/dL 3.2-4.5 Complete urinalysis with reflex to culture - 06/27/16 17:30 Urine color determination YELLOW NRG Urine clarity determination CLEAR NRG Urine pH measurement by test strip 6 5- 9 Specific gravity of urine by test strip 1.010 1.016-1.022 Urine protein assay by test strip, semi-quantitative NEGATIVE NEGATIVE Urine glucose detection by automated test strip NEGATIVE NEGATIVE Erythrocytes detection in urine sediment by light microscopy 1+ NEGATIVE Urine ketones detection by automated test strip NEGATIVE NEGATIVE Urine nitrite detection by test strip NEGATIVE NEGATIVE Urine total bilirubin detection by test strip NEGATIVE NEGATIVE Urine urobilinogen measurement by automated test strip (mass/volume) NORMAL NORMAL Urine leukocyte esterase detection by dipstick NEGATIVE NEGATIVE Automated urine sediment erythrocyte count by microscopy (number/high power field) NONE NRG Automated urine sediment leukocyte count by microscopy (number/high power field ) NONE NRG Bacteria detection in urine sediment by light microscopy NONE NRG Squamous epithelial cells detection in urine sediment by light microscopy 0-2 NRG Crystals detection in urine sediment by light microscopy NONE NRG Casts detection in urine sediment by light microscopy NONE NRG Mucus detection in urine sediment by light microscopy NEGATIVE NRG Complete urinalysis with reflex to culture NO NRG Encounters ACCT No. Visit Date/Time Discharge Status Pt. Type Provider Facility Loc./Unit Complaint [id number] 06/27/2016 16:01:00 2016 19:42:00 DIS Outpatient SHABBIR DOMINIQUE, FARIBA Posada [facility] ER FALL [id number] 02/17/2016 03:22:00 2015 11:37:00 DIS Inpatient DINA DOMINIQUE, LULU Bahena [facility] ICU CHEST PAIN, HYPERTENSION [id number] 01/02/2016 09:25:00 2015 13:00:00 DIS Outpatient MARYCRUZ RUVALCABA MD [facility] SDC REFLUX;EPIGASTRIC PAIN [id number] 01/01/2016 10:27:00 2015 11:16:00 DIS Outpatient MARYCRUZ RUVALCABA MD [facility] PREOP REFLUX;EPIGASTRIC PAIN [id number] 09/14/2015 23:05:00 2015 16:53:00 DIS Inpatient JA DURAN MD [facility] ICU CHEST PAIN;UNCONTROLLED HTN [id number] 12/20/2014 12:51:00 2014 23:59:59 CLS Outpatient KASSANDRA MONTANEZ APRN [facility] RT [id number] 08/10/2014 08:05:00 2014 11:10:00 DIS Outpatient MAHSA MARTINEZ MD [facility] [id number] 08/09/2014 06:13:00 2014 23:59:59 CLS Outpatient MAHSA MARTINEZ MD [facility] PREOP [id number] 06/26/2014 09:52:00 2014 23:59:59 CLS Outpatient BELEN MITTAL [facility] RAD [id number] 12/19/2013 08:21:00 2013 12:05:00 DIS Outpatient RON PRADO MD [facility] [id number] 12/14/2013 07:25:00 2013 23:59:59 CLS Outpatient RON PRADO MD [facility] PREOP [id number] 09/19/2013 08:07:00 2013 23:59:59 CLS Outpatient KISHORE PILLAI [facility] CARD [id number] 08/25/2013 12:50:00 2013 23:59:59 CLS Outpatient LULU ARROYO MD [facility] CARD [id number] 06/28/2013 12:18:00 2013 23:59:59 CLS Outpatient BELEN MITTAL [facility] RAD [id number] 05/23/2013 14:37:00 2013 23:59:59 CLS Outpatient BELEN MITTAL [facility] RAD [id number] 02/02/2013 08:11:00 2012 23:59:59 CLS Outpatient GILMAR VILLATORO DO [facility] RT [id number] 01/05/2013 15:28:00 2012 23:59:59 CLS Outpatient JA DURAN MD [facility] RT [id number] 12/04/2012 07:26:00 2012 10:21:00 DIS Emergency KELLY DOMINIQUE, BRIDGETTE K [facility] ER [id number] 07/22/2016 12:42:00 PEN Preadmit BELEN MITTAL INSTRUCTION DEAN [facility] REHAB FREQUENT FALLS [id number] 06/23/2016 12:59:00 ACT Outpatient KASSANDRA MONTANEZ [employer]CH [facility] RAD COUGH,COPD [id number] 06/12/2016 11:02:00 ACT Outpatient DOUGLAS MONDRAGON [employer] [facility] RAD SCREENING [id number] 01/29/2016 09:29:00 ACT Outpatient LULU ARROYO MD [facility] CARD CAD,CHEST DISCOMFORT,DYSPNEA,HTN,HLP [id number] 01/24/2016 13:44:00 ACT Outpatient LULU ARROYO MD [facility] RAD HX OF TIA,PVD,HLP [id number] 01/22/2016 09:21:00 ACT Outpatient DOUGLAS MONDRAGON [employer] [facility] RAD VISION CHANGES,HEADACHE [id number] 01/03/2016 06:28:00 ACT Outpatient EVE DOMINIQUE, RON Turpin [facility] PREOP GERD [id number] 12/19/2015 13:52:00 ACT Outpatient DOUGLAS MONDRAGON [employer] [facility] LAB DIARRHEA [id number] 06/19/2015 14:34:00 ACT Outpatient DOUGLAS MONDRAGON [employer] [facility] RAD [id number] 05/31/2015 13:14:00 ACT Outpatient ROGER DOMINIQUE, JA Mary [facility] RAD [id number] 03/12/2015 09:20:00 ACT Outpatient LULU ARROYO MD [facility] CARD [id number] 03/07/2015 11:05:00 ACT Outpatient KASSANDRA MONTANEZ [employer] [facility] RAD [id number] 05/24/2014 14:39:00 Document Registration [id number] 05/22/2014 14:48:00 Document Registration [id number] 05/19/2012 11:31:00 Document Registration [id number] 05/10/2012 07:48:00 Document Registration [id number] 05/03/2012 08:44:00 Document Registration [id number] 01/26/2012 05:49:00 Document Registration [id number] 01/21/2012 15:52:00 Document Registration [id number] 01/20/2012 10:29:00 Document Registration [id number] 07/30/2011 13:41:00 Document Registration [id number] 07/23/2011 15:19:00 Document Registration [id number] 06/19/2011 13:07:00 Document Registration [id number] 05/19/2011 10:53:00 Document Registration [id number] 11/12/2010 07:53:00 Document Registration [id number] 10/10/2010 09:56:00 Document Registration [id number] 08/29/2010 08:01:00 Document Registration [id number] 06/25/2010 12:21:00 Document Registration [id number] 05/31/2010 09:00:00 Document Registration [id number] 05/15/2010 14:18:00 Document Registration [id number] 04/18/2010 06:00:00 Document Registration [id number] 04/17/2010 09:54:00 Document Registration [id number] 03/03/2010 03:28:00 Document Registration [id number] 03/01/2010 09:58:00 Document Registration [id number] 12/21/2009 10:49:00 Document Registration [id number] 12/05/2009 08:30:00 Document Registration [id number] 01/22/2009 15:22:00 Document Registration
== END 2016-06-27 19:42 | disposition home or self-care (01) ==
LOC: EDUNIT# 15:59 → ER 16:01
DX: S00.33XA Contusion of nose, initial encounter (principal); S20.212A Contusion of left front wall of thorax, initial encounter; M43.12 Spondylolisthesis, cervical region; I65.23 Occlusion and stenosis of bilateral carotid arteries; J44.9 Chronic obstructive pulmonary disease, unspecified; Z79.02 Long term (current) use of antithrombotics/antiplatelets; Z79.899 Other long term (current) drug therapy; Z98.1 Arthrodesis status; W01.0XXA Fall on same level from slipping, tripping and stumbling without subsequent striking against object, initial encounter; Y92.017 Garden or yard in single-family (private) house as the place of occurrence of the external cause; Y99.8 Other external cause status
CPT/HCPCS: 36415; 70450; 71250; 72125; 80053; 81000; 85025; 85610; 85730

== ENCOUNTER 2016-08-15 10:24 | Outpatient (RCR) | payer MEDICARE | END 2016-08-15 11:29 | disposition home or self-care (01) | PROVIDERS: ATTEND Nurse Practitioner Family | DX: R29.6 Repeated falls (principal); I10 Essential (primary) hypertension; Z98.1 Arthrodesis status ==

== ENCOUNTER → 2016-09-04 | Outpatient (CLI) | payer MEDICARE ==
--- NOTE | 2016-09-04 14:07 | Diagnostic Imaging Report ---
Three views of the lumbar spine. INDICATION: Low back pain. FINDINGS: There is a grade 1 spondylolisthesis of L4 over L5. The vertebral body heights are preserved. There is mild disc height loss at L4/L5 level. Anterior osteophytes are from noted in the lumbar spine. No posterior osteophytes. There is the suggestion of pars defects at L5 level. IMPRESSION: Grade 1 spondylolisthesis of L4 over L5. Suggestion of L5 pars defects. Dictated by: Dictated on workstation # [id number]
== END ==
LOC: RAD 11:51
PROVIDERS: ATTEND Nurse Practitioner Family
DX: M54.5 Low back pain (principal); M43.16 Spondylolisthesis, lumbar region
CPT/HCPCS: 72100

== ENCOUNTER 2016-10-30 13:00 | Outpatient (RCR) | payer MEDICARE | END 2016-10-30 16:29 | disposition home or self-care (01) | PROVIDERS: ATTEND Nurse Practitioner Family | DX: M54.9 Dorsalgia, unspecified (principal) ==

== ENCOUNTER → 2017-06-15 | Outpatient (CLI) | payer MEDICARE ==
--- NOTE | 2017-06-16 18:38 | Diagnostic Imaging Report ---
INDICATION: Routine screening. Comparison is made with prior exams from 06/12/2016 and 05/31/2015. The current study was also evaluated with a Computer Aided Detection (CAD) system. FINDINGS: Scattered fibronodular densities are identified bilaterally. The parenchymal pattern is stable. There are benign calcifications bilaterally. No mass or malignant-appearing microcalcifications are seen. The axillae are unremarkable. IMPRESSION: No mammographic features suspicious for malignancy are identified. ACR BI-RADS Category 2: Benign findings. Result letter will be mailed to the patient. Note: At least 10% of breast cancer is not imaged by mammography. Dictated by: Dictated on workstation # [id number]
== END ==
LOC: RAD 13:58
PROVIDERS: ATTEND Nurse Practitioner Family
DX: Z12.31 Encounter for screening mammogram for malignant neoplasm of breast (principal)
CPT/HCPCS: 77067

== ENCOUNTER 2017-08-03 13:50 | Outpatient (CLI) | payer MEDICARE | END 2017-08-03 14:25 | disposition home or self-care (01) | LOC: SLEEP 13:50 | PROVIDERS: ATTEND Nurse Practitioner Family | DX: G47.10 Hypersomnia, unspecified (principal); R06.00 Dyspnea, unspecified ==

== ENCOUNTER 2017-10-11 12:57 | Inpatient (IN) | payer MEDICARE ==
[2017-10-11] VITALS (10 sets, daily range): BP systolic 66–187; BP diastolic 35–108
[~2017-10-11] VITALS: Ht 160 cm; Wt 61.3 kg
[2017-10-11] MEDS ORDERED: NITROGLYCERIN 0.4 MG SL TABS BTL 25'S SL ONE ×2 (13:22→13:30)
[2017-10-11 13:28] LABS: BASOPHILS % (AUTO) 0 % (0-10); EOSINOPHILS # (AUTO) 0.1 10^3/uL (0.0-0.3); EOSINOPHILS % (AUTO) 2 % (0-10); HEMATOCRIT 38 % (35-52); HEMOGLOBIN 12.7 G/DL (11.5-16.0); LYMPHOCYTES # (AUTO) 2.4 X 10^3 (1.0-4.0); LYMPHOCYTES % (AUTO) 31 % (12-44); MEAN CORPUSCULAR HEMOGLOBIN 30 PG (25-34); MEAN CORPUSCULAR HGB CONC 34 G/DL (32-36); MEAN CORPUSCULAR VOLUME 89 FL (80-99); MEAN PLATELET VOLUME 10.3 FL (7.4-10.4); MONOCYTES % (AUTO) 13 % (0-12); NEUTROPHILS # (AUTO) 4.3 X 10^3 (1.8-7.8); NEUTROPHILS % (AUTO) 55 % (42-75); PLATELET COUNT 274 10^3/uL (130-400); RED BLOOD COUNT 4.25 10^6/uL (4.35-5.85); RED CELL DISTRIBUTION WIDTH 14.4 % (10.0-14.5); WHITE BLOOD COUNT 7.9 10^3/uL (4.3-11.0)
[2017-10-11] MEDS ORDERED: ONDANSETRON 4 MG/2 ML (SDV) Z0FRAN ONE (13:29)
[2017-10-11] MEDS ORDERED: ASPIRIN 81 MG CHEW (CHILDREN'S ASA) PO ONE (13:30)
[2017-10-11] MEDS ORDERED: ONDANSETRON 4 MG/2 ML (SDV) Z0FRAN IVP ONE (13:30)
[2017-10-11] MEDS ORDERED: NS IV 1000 ML 1,000 ML ONE ×2 (13:35→19:36)
[2017-10-11 13:41] LABS: ALANINE AMINOTRANSFERASE 14 U/L (0-55); ALBUMIN 4.2 GM/DL (3.2-4.5); ALKALINE PHOSPHATASE 76 U/L (40-136); AMYLASE 41 U/L (25-125); BILIRUBIN,TOTAL 0.7 MG/DL (0.1-1.0); BUN/CREATININE RATIO 13; CALCIUM 9.9 MG/DL (8.5-10.1); CARBON DIOXIDE 23 MMOL/L (21-32); CHLORIDE 99 MMOL/L (98-107); CREATININE SERUM 0.79 MG/DL (0.60-1.30); GFR ESTIMATED > 60; GLUCOSE 121 MG/DL (70-105); LIPASE 17 U/L (8-78); POTASSIUM 3.8 MMOL/L (3.6-5.0); SODIUM 132 MMOL/L (135-145); TOTAL PROTEIN 7.3 GM/DL (6.4-8.2)
[2017-10-11] MEDS ORDERED: NS IV 1000 ML 1,000 ML IV SCH ×2 (13:45→21:48)
[2017-10-11 13:48] LABS: MYOGLOBIN SERUM 86.8 NG/ML (10.0-92.0)
[2017-10-11] MEDS ORDERED: morphine INJ 10 MG/ML 1ML (SYR OR VIAL) IVP ONE ×3 (14:00→16:00)
--- NOTE | 2017-10-11 14:26 | ED Chest Pain ---
General Chief Complaint: Chest Pain Stated Complaint: CHEST PAIN Nursing Triage Note: PT AMBULATED TO RM 10 W/O DIFFICULTIES. PT C/O CHEST PAIN AND R ARM NUMBNESS THAT STARTED AT APPROXIMATELY 1230 TODAY. Nursing Sepsis Screen: No Definite Risk History of Present Illness Date Seen by Provider: Oct 11, 2017 Time Seen by Provider: 12:57 Initial Comments Patient is an 81-year-old female who presents to the emergency room with complaints of substernal chest pain that radiates to her back, and right arm numbness, nausea, shortness of breath that all started today at 1230. She has a history of a "mini stroke" and hypertension but has never had any other cardiac events. She takes Plavix daily for history of strokes. 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 NTG SL FOREIGN TRADE TEACHER: No Associated Symptoms: back pain, diaphoresis, nausea/vomiting, shortness of breath Allergies and Home Medications Allergies Coded Allergies: Sulfa (Sulfonamide Antibiotics) (Verified Allergy, Unknown, 03/10/06) amoxicillin (Verified Allergy, Unknown, 03/10/06) ciprofloxacin (Verified Allergy, Unknown, 01/02/16) gluten (Verified Allergy, Unknown, 01/02/16) iodamide meglumine (Verified Allergy, Unknown, 03/10/06) lactose (Verified Adverse Reaction, Mild, Diarrhea, 02/17/16) Uncoded Allergies: CONTRAST DYE (Allergy, Unknown, 12/19/13) Home Medications Albuterol Sulfate 1 Puff Puff, 2 PUFF IH Q4H PRN for SHORTNESS OF BREATH, ( Reported) 1 PUFF = 90 MCG Alprazolam 0.25 Mg Tablet, 0.0625 MG PO QIDACHS, (Reported) TAKES 1/4 OF A (0.25 MG) TABLET Amlodipine Besylate 5 Mg Tablet, 2.5 MG PO DAILY, (Reported) take 1/2 (5 mg) tablet once daily Cholecalciferol (Vitamin D3) 5,000 Unit Capsule, 5,000 UNIT PO DAILY, (Reported) Clopidogrel Bisulfate 75 Mg Tablet, 75 MG PO DAILY, (Reported) Cyanocobalamin (Vitamin B-12) 1,000 Mcg Tablet, 1,000 MCG PO DAILY, (Reported) Famotidine 20 Mg Tablet, 20 MG PO BID PRN for acid reflux, (Reported) Fluticasone Propionate 1 Ea Aero, 2 PUFF IH BID, (Reported) Lactobacillus Combo No.6 1 Each Tablet, 1 CAP PO DAILY, (Reported) Nebivolol HCl 5 Mg Tablet, 2.5 MG PO BID, (Reported) TAKES 1/2 OF A (5 MG) TABLET Phenylephrine HCl 30 Ml [place], 1 SPRAY NSEACH TID PRN for Allergies, (Reported) Patient Home Medication List Home Medication List Reviewed: Yes Review of Systems Constitutional: see HPI, diaphoresis EENTM: See HPI; No Blurred Vision, No Double Vision Respiratory: See HPI; Denies Cough, Denies Orthopnea; Shortness of Air Cardiovascular: See HPI, Chest Pain; Denies Irregular Heart Rate, Denies Lightheadedness, Denies Palpitations, Denies Syncope Gastrointestinal: See HPI; Denies Abdominal Pain, Denies Diarrhea; Nausea; Denies Vomiting Genitourinary: See HPI; Denies Burning, Denies Discharge Musculoskeletal: see HPI; No back pain, No gout Skin: see HPI; No change in color, No change in hair/nails Psychiatric/Neurological: See HPI; Denies Anxiety, Denies Depressed Endocrine: See HPI; Denies Excessive Sweating, Denies Flushing, Denies Intolerance to Cold Hematologic/Lymphatic: See HPI; Denies Anemia, Denies Blood Clots All Other Systems Reviewed Negative Unless Noted: Yes Past Eoslqri-Wubffx-Ooxuez Hx Past Med/Social Hx: Reviewed Nursing Past Med/Soc Hx Patient Social History Alcohol Use: Denies Use Recreational Drug Use: No 2nd Hand Smoke Exposure: No Recent Foreign Travel: No Contact w/Someone Who Travel: No Recent Infectious Disease Expo: No Recent Hopitalizations: No Physical Abuse: No Sexual Abuse: No Immunizations Up To Date Tetanus Booster (TDap): More than 5yrs Date of Pneumonia Vaccine: Feb 27, 2015 Date of Influenza Vaccine: Dec 29, 2015 Seasonal Allergies Seasonal Allergies: No Past Medical History Surgeries: Yes (Hemorrhoids, benign bladder tumor, neck vertebra fusion, left cataraact) Hysterectomy Respiratory: Yes COPD Currently Using CPAP: No Currently Using BIPAP: No Cardiac: Yes Hypertension Neurological: No Reproductive Disorders: No 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 Sexually Transmitted Disease: No HIV/AIDS: No Bladder Infection Gastrointestinal: Yes Gastroesophageal Reflux, Hiatal Hernia Musculoskeletal: Yes (Hx hammertoe surgery) Arthritis Endocrine: No Cataract Loss of Vision: Denies Hearing Impairment: Denies Cancer: No Psychosocial: Yes Anxiety Nursing Suicide Risk Score: 0 Integumentary: No Blood Disorders: No Adverse Reaction/Blood Tranf: No Family Medical History Reviewed Nursing Family Hx Parkinson's disease G8 BROTHER No Pertinent Family Hx Physical Exam Vital Signs Vital Signs - First Documented 10/11/17 13:05 Pulse Ox 97 O2 Flow Rate 2.00 FiO2 97 Capillary Refill : Less Than 3 Seconds Height, Weight, BMI Height: 5'3.00" Weight: 130lbs. 0.0oz. [id number]; 22.1 BMI Method:Stated General Appearance: No Apparent Distress, WD/WN HEENT: PERRL/EOMI, TMs Normal, Normal ENT Inspection, Pharynx Normal Neck: Full Range of Motion, Normal Inspection, Non Tender, Supple Respiratory: Chest Non Tender, Lungs Clear, Normal Breath Sounds, No Accessory Muscle Use, No Respiratory Distress Cardiovascular: Regular Rate, Rhythm, No Edema, No Gallop, No JVD, No Murmur, Normal Peripheral Pulses Gastrointestinal: Normal Bowel Sounds, No Organomegaly, No Pulsatile Mass, Non Tender, Soft Extremity: Normal Capillary Refill, Normal Inspection, Normal Range of Motion, Non Tender, No Calf Tenderness Neurologic/Psychiatric: Alert, Oriented x3, No Motor/Sensory Deficits Skin: Normal Color, Diaphoresis Lymphatic: No Adenopathy Progress/Results/Core Measures Results/Orders Lab Results Laboratory Tests Test 10/11/17 13:04 Range/Units White Blood Count 7.9 4.3-11.0 10^3/uL Red Blood Count 4.25 L 4.35-5.85 10^6/uL Hemoglobin 12.7 11.5-16.0 G/DL Hematocrit 38 35-52 % Mean Corpuscular Volume 89 80-99 FL Mean Corpuscular Hemoglobin 30 25-34 PG Mean Corpuscular Hemoglobin Concent 34 32-36 G/DL Red Cell Distribution Width 14.4 10.0-14.5 % Platelet Count 274 130-400 10^3/uL Mean Platelet Volume 10.3 7.4-10.4 FL Neutrophils (%) (Auto) 55 42-75 % Lymphocytes (%) (Auto) 31 12-44 % Monocytes (%) (Auto) 13 H 0-12 % Eosinophils (%) (Auto) 2 0-10 % Basophils (%) (Auto) 0 0-10 % Neutrophils # (Auto) 4.3 1.8-7.8 X 10^3 Lymphocytes # (Auto) 2.4 1.0-4.0 X 10^3 Monocytes # (Auto) 1.0 0.0-1.0 X 10^3 Eosinophils # (Auto) 0.1 0.0-0.3 10^3/uL Basophils # (Auto) 0.0 0.0-0.1 10^3/uL Prothrombin Time 13.0 12.2-14.7 SEC INR Comment 1.0 0.8-1.4 Activated Partial Thromboplast Time 32 24-35 SEC D-Dimer 0.50 H 0.00-0.49 UG/ML Sodium Level 132 L 135-145 MMOL/L Potassium Level 3.8 3.6-5.0 MMOL/L Chloride Level 99 98-107 MMOL/L Carbon Dioxide Level 23 21-32 MMOL/L Anion Gap 10 5-14 MMOL/L Blood Urea Nitrogen 10 7-18 MG/DL Creatinine 0.79 0.60-1.30 MG/DL Estimat Glomerular Filtration Rate > 60 BUN/Creatinine Ratio 13 Glucose Level 121 H 70-105 MG/DL Calcium Level 9.9 8.5-10.1 MG/DL Magnesium Level 2.0 1.8-2.4 MG/DL Total Bilirubin 0.7 0.1-1.0 MG/DL Aspartate Amino Transf (AST/SGOT) 25 5-34 U/L Alanine Aminotransferase (ALT/SGPT) 14 0-55 U/L Alkaline Phosphatase 76 40-136 U/L Myoglobin 86.8 10.0-92.0 NG/ML Troponin I < 0.30 <0.30 NG/ML B-Type Natriuretic Peptide 105.9 H <100.0 PG/ML Total Protein 7.3 6.4-8.2 GM/DL Albumin 4.2 3.2-4.5 GM/DL Amylase Level 41 25-125 U/L Lipase 17 8-78 U/L My Orders Orders - EDER,EFRAÍN Cbc With Automated Diff (10/11/17 13:16) Magnesium (10/11/17 13:16) Chest 1 View, Ap/Pa Only (10/11/17 13:16) Ekg Tracing (10/11/17 13:16) Cardiac Profile 1 (10/11/17 13:16) Comprehensive Metabolic Panel (10/11/17 13:16) Myoglobin Serum (10/11/17 13:16) Protime With Inr (10/11/17 13:16) Partial Thromboplastin Time (10/11/17 13:16) O2 (10/11/17 13:16) Monitor-Rhythm Ecg Trace Only (10/11/17 13:16) Lipid Panel (10/12/17 06:00) Aspirin Chewable Tablet (Baby Aspirin Ch (10/11/17 13:30) Saline Lock/Iv-Start (10/11/17 13:16) Lipase (10/11/17 13:16) Amylase (10/11/17 13:16) BNP (10/11/17 13:16) Fibrin Degradation Products (10/11/17 13:16) Nitroglycerin 0.4 Mg Btl 25's (Nitrostat (10/11/17 13:22) Ondansetron Injection (Zofran Injectio (10/11/17 13:30) Nitroglycerin 0.4 Mg Btl 25's (Nitrostat (10/11/17 13:30) Ondansetron Injection (Zofran Injectio (10/11/17 13:29) Ns Iv 1000 Ml (Sodium Chloride 0.9%) (10/11/17 13:45) Ns Iv 1000 Ml (Sodium Chloride 0.9%) (10/11/17 13:35) Morphine Injection (Morphine Injection (10/11/17 14:00) Morphine Injection (Morphine Injection (10/11/17 14:30) Ct Angio Chest W (10/11/17 14:47) Metoprolol Succinate (Xl) Tab (Toprol Xl (10/11/17 15:00) Enoxaparin Injection (Lovenox Injection) (10/11/17 15:00) Diphenhydramine Injection (Benadryl Inje (10/11/17 15:00) Methylprednisolone Sod Succ (Solu-Medrol (10/11/17 15:00) Iohexol Injection (Omnipaque 350 Mg/Ml 1 (10/11/17 15:00) Ns (Ivpb) (Sodium Chloride 0.9% Ivpb Bag (10/11/17 15:00) Medications Given in ED Current Medications Medications Dose Ordered Sig/Haider Route Start Time Stop Time Status Last Admin Dose Admin Aspirin 324 mg ONCE ONCE PO 10/11/17 13:30 10/11/17 13:31 DC 10/11/17 13:21 324 MG Diphenhydramine HCl 25 mg ONCE ONCE IVP 10/11/17 15:00 10/11/17 15:01 DC 10/11/17 15:07 25 MG Enoxaparin Sodium 60 mg ONCE ONCE SC 10/11/17 15:00 10/11/17 15:01 DC 10/11/17 16:00 60 MG Iohexol 150 ml ONCE ONCE IV 10/11/17 15:00 10/11/17 15:02 DC 10/11/17 15:34 140 ML Methylprednisolone Sodium Succinate 125 mg ONCE ONCE IVP 10/11/17 15:00 10/11/17 15:01 DC 10/11/17 15:08 125 MG Metoprolol Succinate 100 mg ONCE ONCE PO 10/11/17 15:00 10/11/17 15:01 DC 10/11/17 15:59 100 MG Morphine Sulfate 2 mg ONCE ONCE IVP 10/11/17 14:00 10/11/17 14:01 DC 10/11/17 14:09 2 MG Morphine Sulfate 2 mg ONCE ONCE IVP 10/11/17 14:30 10/11/17 14:31 DC 10/11/17 14:37 2 MG Nitroglycerin 0.4 mg STK-MED ONCE SL 10/11/17 13:22 10/11/17 13:24 DC 10/11/17 13:25 0.4 MG Ondansetron HCl 4 mg ONCE ONCE IVP 10/11/17 13:30 10/11/17 13:31 DC 10/11/17 13:31 4 MG Sodium Chloride 100 ml ONCE ONCE IV 10/11/17 15:00 10/11/17 15:02 DC 10/11/17 15:34 100 ML Sodium Chloride 1,000 ml @ STK-MED ONCE .ROUTE 10/11/17 13:35 10/11/17 13:37 DC 10/11/17 13:38 1,000 MLS/HR Vital Signs/I&O 10/11/17 10/11/17 10/11/17 12:57 12:57 13:05 Temp 97.9 Pulse 64 Resp 18 B/P (MAP) 203/86 (125) Pulse Ox 97 O2 Delivery Room Air Room Air Nasal Cannula O2 Flow Rate 2.00 FiO2 97 Blood Pressure Mean: 125 Progress Progress Note : Progress Note 1325: 1 nitroglycerin 0.4 mg sublingual was given to the patient for chest pain. This caused a significant drop in her blood pressure, causing her to become nauseated and more diaphoretic. 1 L of normal saline was started wide open and 4 mg Zofran were given to the patient. The patient's chest pain resolved for a brief moment and then returned. Morphine order was given. 1450: To Dr. Haines regarding the patient's presentation and my concern unrelieved chest pain with morphine. He recommends getting a CT angios of the chest and serial troponin. Toprol-XL, and Lovenox. 1500: Patient reports that she has had hives reaction and CT contrast years ago. I discussed this with Dr. Talbert and he recommends pretreatment with Benadryl and Solu-Medrol. 1545 Patient is back from CT scan she denies any hives, itching, shortness of breath, throat swelling. 1700: Spoke to Dr. Haines regarding the patient's CT angiogram report. He agrees with previously discussed plan of care and advises to give 1 more 100 mg Toprol-XL for increase in blood pressure. The medication was ordered at this time. Diagnostic Imaging Diagonstic Imaging: Xray, CT Plain Films/CT/US/NM/MRI: chest Comments NAME: AKILA DURAN MED REC#: [id number] PT STATUS: ADM Storm : 1935 PHYSICIAN: EFRAÍN GAINES ADMIT DATE: 10/11/17/ICU Draft Date of Exam:10/11/17 CT ANGIO CHEST W PROCEDURE: CT angiography of the chest with contrast. TECHNIQUE: Multiple contiguous axial images were obtained through the chest after uneventful bolus administration of intravenous contrast. Reconstructed CTA MIP acquisitions were also performed. INDICATION: Chest pain, shortness of air. COMPARISON: 06/27/2016. FINDINGS: There is no filling defect within the pulmonary arteries to reflect pulmonary embolism. The heart size is unremarkable. Thoracic aorta normal in contour. Mild wall calcification of the thoracic aorta. No filling defect to reflect dissection. No pathologically enlarged mediastinal lymph nodes. Small hiatal hernia with mild wall thickening in the low esophagus. Low-density nodules within the somewhat small thyroid gland. Minimal dependant areas of atelectasis. Calcified granulomas. No pulmonary infiltrate. No significant pleural effusion. Of note, incidental mass compatible with left kidney. The visualized osseous structures demonstrate no acute findings. IMPRESSION: No CT evidence for pulmonary embolism or otherwise acute abnormality in the chest. Dictated on workstation # [id number] Dict: 10/11/17 1552 Trans: 10/11/17 1619 [facility] [id number] Interpreted by: JENNIFER BRIGHT DO Electronically signed by: NAME: AKILA DURAN [facility] REC#: [id number] PT STATUS: REG ER : 1935 PHYSICIAN: EFRAÍN GAINES ADMIT DATE: 10/11/17/ER Signed Date of Exam: 10/11/17 CHEST 1 VIEW, AP/PA ONLY INDICATION: Chest pain and right arm numbness. Time of exam 2:07 PM Comparison is made with prior chest from 06/23/2016. The heart size is normal. The pulmonary vascularity is unremarkable. The lungs are clear. No infiltrate, effusion or pneumothorax is detected. Impression: No acute cardiopulmonary process is detected. Dictated by: Dictated on workstation # [id number] Dict: 10/11/17 1430 Trans: 10/11/17 1448 Interpreted by: NONA PINEDA MD Electronically signed by: NONA PINEDA MD 10/11/17 1448 Reviewed: Reviewed by Me Departure Communication (Admissions) Time/Spoke to Admitting Phy: 14:[address] Ramachandran she agrees with plan for admission. Time/Spoke to Consulting Phy: 14:[address] Meléndez he agreed with plans for admission, recommend CT angio of the chest, Lovenox 60 mg every 12 hours, continuing the morphine for pain, and Toprol-XL 100 mg daily. Impression Primary Impression: Chest pain Disposition: ADMITTED INPATIENT Condition: Stable/Unchanged Admissions Decision to Admit Reason: Admit from ER (General) Decision to Admit/Date: Oct 11, 2017 Time/Decision to Admit Time: 14:50 Departure-Patient Inst. Referrals: JA DURAN MD (PCP/Family) Primary Care Physician EFRAÍN GAINES Oct 11, 2017 14:26
--- NOTE | 2017-10-11 14:32 | Diagnostic Imaging Report ---
INDICATION: Chest pain and right arm numbness. Time of exam 2:07 PM Comparison is made with prior chest from 06/23/2016. The heart size is normal. The pulmonary vascularity is unremarkable. The lungs are clear. No infiltrate, effusion or pneumothorax is detected. Impression: No acute cardiopulmonary process is detected. Dictated by: Dictated on workstation # [id number]
[2017-10-11] MEDS ORDERED: ENOXAPARIN 60 MG/0.6 ML (LOVENOX) SYR SC ONE (15:00)
[2017-10-11] MEDS ORDERED: IOHEXOL 350 MG/ML 150 ML (OMNIPAQUE 350) VIAL IV ONE (15:00)
[2017-10-11] MEDS ORDERED: methylPREDNISolone 125 MG (Solu-MEDROL) VIAL IVP ONE (15:00)
[2017-10-11] MEDS ORDERED: NS 100 ML (IVPB) BAG IV ONE (15:00)
[2017-10-11] MEDS ORDERED: diphenhydrAMINE 50 MG/ML INJ (BENADRYL) IVP ONE (15:00)
[2017-10-11] MEDS ORDERED: meTOprolol SUCCINATE 100 MG (TOPROL XL) TAB PO ONE ×2 (15:00→17:15)
--- NOTE | 2017-10-11 16:20 | Diagnostic Imaging Report ---
PROCEDURE: CT angiography of the chest with contrast. TECHNIQUE: Multiple contiguous axial images were obtained through the chest after uneventful bolus administration of intravenous contrast. Reconstructed CTA MIP acquisitions were also performed. INDICATION: Chest pain, shortness of air. COMPARISON: 06/27/2016. FINDINGS: There is no filling defect within the pulmonary arteries to reflect pulmonary embolism. The heart size is unremarkable. Thoracic aorta normal in contour. Mild wall calcification of the thoracic aorta. No filling defect to reflect dissection. No pathologically enlarged mediastinal lymph nodes. Small hiatal hernia with mild wall thickening in the low esophagus. Low-density nodules within the somewhat small thyroid gland. Minimal dependant areas of atelectasis. Calcified granulomas. No pulmonary infiltrate. No significant pleural effusion. Of note, incidental mass compatible with left kidney. The visualized osseous structures demonstrate no acute findings. IMPRESSION: No CT evidence for pulmonary embolism or otherwise acute abnormality in the chest. Dictated by: Dictated on workstation # [id number]
[2017-10-11] MEDS ORDERED: RT-ALBUINH IH (16:30)
[2017-10-11] MEDS ORDERED: AMLO5TAB2 PO (16:30)
[2017-10-11] MEDS ORDERED: PHEN30SP4 NSEACH (16:30)
[2017-10-11] MEDS ORDERED: CLOPIDOGREL 75 MG (PLAVIX) TABLET PO ONE (18:15)
[2017-10-11] MEDS ORDERED: amLODIPine 10 MG (NORVASC) TAB PO ONE (18:30)
--- NOTE | 2017-10-11 18:59 | Consultation-Cardiology ---
HPI-Cardiology Cardiology Consultation: Date of Consultation 10/11/17 Time Seen by Provider: 18:30 Date of Admission Attending Physician Bhavani Ramachandran DO Admitting Physician Ruthie Mendez MD Consulting Physician TATIANNA SUTTON MD, MA, FACP, FACC, FSCAI, CCDS HPI: Chief Complaint: Chest discomfort 81 yo woman with chest discomfort: midsternal, radiating to the back, mild to mod-severe, onset approx 8 hours ago, waxing and waning but not resolving, feeling of pressure, not experienced before No shortness of breath or palp or syncope Chronic intermittent dizziness No leg swelling or leg discomfort Review of Systems-Cardiology Review of Systems Constitutional: No weight loss, No weight gain Eyes: No vision change Ears/Nose/Throat: No ear discharge, No nasal drainage, No recent hearing loss Respiratory: As described under HPI Cardiovascular: As described under HPI Gastrointestinal: No constipation, No diarrhea, No nausea, No vomiting Genitourinary: No dysuria, No hematuria, No urine frequency changes Musculoskeletal: back pain (chest discomfort radiating to the back today); No joint pain Skin: No rash, No ulcerations Psychiatric/Neurological: No seizure, No focal weakness, No syncope Hematologic: No bleeding abnormalities All Other Systems Reviewed Negative Unless Noted: Yes VAH-Jmsbic-Ydxblp Hx Patient Social History Alcohol Use: Denies Use Recreational Drug Use: No 2nd Hand Smoke Exposure: No Recent Foreign Travel: No Recent Infectious Disease Expo: No Hospitalization with Isolation: Denies Physical Abuse Screen: No Sexual Abuse: No Immunizations Up To Date Tetanus Booster (TDap): More than 5yrs Date of Pneumonia Vaccine: Feb 27, 2015 Date of Influenza Vaccine: Dec 29, 2015 Past Medical History PMH As described under Assessment. Family Medical History Family Medical History: No fam h/o early CAD or SCD Family History: Parkinson's disease G8 BROTHER Allergies and Home Medications Allergies Coded Allergies: Sulfa (Sulfonamide Antibiotics) (Verified Allergy, Unknown, 03/10/06) amoxicillin (Verified Allergy, Unknown, 03/10/06) ciprofloxacin (Verified Allergy, Unknown, 01/02/16) gluten (Verified Allergy, Unknown, 01/02/16) iodamide meglumine (Verified Allergy, Unknown, 03/10/06) lactose (Verified Adverse Reaction, Mild, Diarrhea, 02/17/16) Uncoded Allergies: CONTRAST DYE (Allergy, Unknown, 12/19/13) Home Medications Albuterol Sulfate 1 Puff Puff, 2 PUFF IH Q4H PRN for SHORTNESS OF BREATH, ( Reported) 1 PUFF = 90 MCG Alprazolam 0.25 Mg Tablet, 0.0625 MG PO QIDACHS, (Reported) TAKES 1/4 OF A (0.25 MG) TABLET Amlodipine Besylate 5 Mg Tablet, 2.5 MG PO DAILY, (Reported) take 1/2 (5 mg) tablet once daily Cholecalciferol (Vitamin D3) 5,000 Unit Capsule, 5,000 UNIT PO DAILY, (Reported) Clopidogrel Bisulfate 75 Mg Tablet, 75 MG PO DAILY, (Reported) Cyanocobalamin (Vitamin B-12) 1,000 Mcg Tablet, 1,000 MCG PO DAILY, (Reported) Famotidine 20 Mg Tablet, 20 MG PO BID PRN for acid reflux, (Reported) Fluticasone Propionate 1 Ea Aero, 2 PUFF IH BID, (Reported) Lactobacillus Combo No.6 1 Each Tablet, 1 CAP PO DAILY, (Reported) Nebivolol HCl 5 Mg Tablet, 2.5 MG PO BID, (Reported) TAKES 1/2 OF A (5 MG) TABLET Phenylephrine HCl 30 Ml [place], 1 SPRAY NSEACH TID PRN for Allergies, (Reported) Patient Home Medication List Home Medication List Reviewed: Yes Physical Exam-Cardiology Physical Exam Vital Signs/I&O 10/11/17 10/11/17 10/11/17 10/11/17 12:57 12:57 13:05 17:15 Temp 97.9 97.9 Pulse 64 78 Resp 18 19 B/P (MAP) 203/86 (125) 176/78 Pulse Ox 97 95 O2 Delivery Room Air Room Air Nasal Cannula Room Air O2 Flow Rate 2.00 FiO2 97 10/11/17 10/11/17 10/11/17 10/11/17 17:24 17:25 17:30 17:40 Temp 97.8 Pulse 77 67 69 B/P (MAP) 185/81 (115) 185/77 (113) Pulse Ox 97 97 O2 Delivery Room Air Room Air Room Air 10/11/17 10/11/17 17:45 18:00 Pulse 70 72 B/P (MAP) 181/85 (117) 187/83 (117) Pulse Ox 95 96 O2 Delivery Room Air Room Air Capillary Refill : Less Than 3 Seconds Constitutional: AAO x 3, well-developed, well-nourished HEENT: EOMI, hearing is well preserved; No xanthelasmas are seen Neck: No carotid bruit; carotid pulses are 2 + bilaterally, with good upstrokes Respiratory: No accessory muscle use; lungs clear to percussion, lungs clear to auscultation Cardiovascular: regular rate-rhythm, S1 and S2, systolic murmur (soft MARION at card base) Gastrointestinal: No tender; soft; No guarding, No rebound; audible bowel sounds Extremities: No clubbing, No cyanosis, No significant edema Neurologic/Psychiatric: oriented x 3, grossly intact Skin: No rash on exposed areas, No ulcerations on exposed areas Data Review Labs Laboratory Tests 10/11/17 13:04: White Blood Count 7.9, Red Blood Count 4.25L, Hemoglobin 12.7, Hematocrit 38, Mean Corpuscular Volume 89, Mean Corpuscular Hemoglobin 30, Mean Corpuscular Hemoglobin Concent 34, Red Cell Distribution Width 14.4, Platelet Count 274, Mean Platelet Volume 10.3, Neutrophils (%) (Auto) 55, Lymphocytes (%) (Auto) 31 , Monocytes (%) (Auto) 13H, Eosinophils (%) (Auto) 2, Basophils (%) (Auto) 0, Neutrophils # (Auto) 4.3, Lymphocytes # (Auto) 2.4, Monocytes # (Auto) 1.0, Eosinophils # (Auto) 0.1, Basophils # (Auto) 0.0, Prothrombin Time 13.0, INR Comment 1.0, Activated Partial Thromboplast Time 32, D-Dimer 0.50H, Sodium Level 132L, Potassium Level 3.8, Chloride Level 99, Carbon Dioxide Level 23, Anion Gap 10, Blood Urea Nitrogen 10, Creatinine 0.79, Estimat Glomerular Filtration Rate > 60, BUN/Creatinine Ratio 13, Glucose Level 121H, Calcium Level 9.9, Magnesium Level 2.0, Total Bilirubin 0.7, Aspartate Amino Transf (AST /SGOT) 25, Alanine Aminotransferase (ALT/SGPT) 14, Alkaline Phosphatase 76, Myoglobin 86.8, Troponin I < 0.30, B-Type Natriuretic Peptide 105.9H, Total Protein 7.3, Albumin 4.2, Amylase Level 41, Lipase 17 10/11/17 17:05: Troponin I 2.52*H Laboratory Tests 10/11/17 13:04 A/P-Cardiology Assessment/Admission Diagnosis Ac cor syndrome: acute NSTEMI (as indicated by mild elevation of the 2nd troponin) and unstable angina Hypertension Chronic dizziness Vague h/o of mini stroke (on Plavix since) Discussion and Recomendations * Treat with ASA, Plavix, Lovenox, atorvastatin * Urgent cath due to ACS and continuing symptoms * I reviewed the rationale, procedure, risks, benefits, potential complications , and alternatives of card cath and possible ad hoc cor intervention with her and answered questions in detail. She understands and provides informed consent Clinical Quality Measures AMI/AHF: ASA po Prior to arrival: No DVT/VTE Risk/Contraindication: Risk Factor Score Per Nursin RFS Level Per Nursing on Admit: 4+=Very High ATTIANNA SUTTON MD FACP FAC CCDS Oct 11, 2017 18:59
[2017-10-11] MEDS ORDERED: LIDOCAINE 1% INJ 20 ML 20 ML VIAL ONE (19:35)
[2017-10-11] MEDS ORDERED: HEParin (CATH LAB) 2,000 ML IV ONE (19:36)
[2017-10-11] MEDS ORDERED: fentaNYL INJECTION 100 MCG/2 ML AMP ONE (19:59)
[2017-10-11] MEDS ORDERED: diphenhydrAMINE 50 MG/ML INJ (BENADRYL) ONE (19:59)
[2017-10-11] MEDS ORDERED: MIDAZOLAM 5 MG/5 ML (VERSED) VIAL ONE (19:59)
[2017-10-11] MEDS ORDERED: methylPREDNISolone 125 MG (Solu-MEDROL) VIAL ONE (20:27)
[2017-10-11] MEDS ORDERED: morphine INJ 4 MG/ML 1 ML (VIAL/SYRINGE) IV PRN (20:30)
[2017-10-11] MEDS: NS IV 1000 ML 1,000 ML IV SCH (20:30)
[2017-10-11] MEDS ORDERED: NITRO DRIP 25000 MCG/D5W 250 ML IV ONE (20:54)
[2017-10-11] MEDS ORDERED: HEParin 1000 UNIT/ML (10ML VIAL) FOR BOLUS ONE (20:54)
[2017-10-11] MEDS ORDERED: EPTIFIBATIDE BOLUS 10 ML IV ONE (20:56)
[2017-10-11] MEDS ORDERED: CLOPIDOGREL 75 MG (PLAVIX) TABLET ONE (21:32)
--- NOTE | 2017-10-11 21:46 | Cardiac Procedure Note-CS/ASA ---
Pre-Procedure Note Pre-Op Procedure Note H&P Reviewed The H&P was reviewed, patient examined and no changes noted. Date H&P Reviewed: Oct 11, 2017 Time H&P Reviewed: 20:30 Conscious Sedation Pre-Proced Time Reviewed: 20:30 ASA Class: 3 Airway Mallampati Classification: (point hope ira appropriate class) I. II. III, IV Lungs Heart ASA score ASA 1: a normal healthy patient ASA 2: a patient with a mild systemic disease (mid diabetes, controlled hypertension, obesity ASA 3: a patient with a severe systemic disease that limits activity (angina , COPD, prior Myocardial infarction) ASA 4: a patient with an incapacitating disease that is a constant threat to life (CHF, renal failure) ASA 5: a moribund patient not expected to survive 24 hrs. (ruptured aneurysm) ASA 6: a declared brain patient whose organs are being harvested. For emergent operations, add the letter E after the classification Grade 2 Sedation Plan: Analgesia, Amnesia, Plan communicated to team members, Discussed options with patient/fam, Discussed risks with patient/fam Note The patient is an appropriate candidate to undergo the planned procedure, sedation, and anesthesia. The patient immediately re-assessed prior to indication. TATIANNA SUTTON MD FACP FAC CCDS Oct 11, 2017 21:45
[2017-10-11] MEDS ORDERED: PATIENT MAY USE OWN MEDS, ALL PO SCH (22:00)
[2017-10-11] MEDS ORDERED: TEMAZEPAM 7.5 MG CAP (RESTORIL) PO PRN (22:15)
[2017-10-11] MEDS ORDERED: FAMOTIDINE 20 MG (PEPCID) TABLET PO ONE (22:15)
[2017-10-11] MEDS ORDERED: ACETAMINOPHEN 325 MG TABLET PO PRN (22:15)
[2017-10-11] MEDS ORDERED: ONDANSETRON 4 MG/2 ML (SDV) Z0FRAN IVP PRN (22:45)
--- NOTE | 2017-10-11 22:52 | CARDIAC CATHETERIZATION ---
DATE OF SERVICE: 10/11/2017 The patient is an 81-year-old lady with coronary risk factors who was hospitalized with chest pain and subsequently troponin was positive, indicative of non-ST elevation myocardial infarction. Due to continuing symptoms, urgent cardiac catheterization was carried out after having obtained informed consent for cardiac catheterization and possible ad hoc coronary intervention. PROCEDURE: She was brought to the cardiac catheterization laboratory. Right groin was prepared and draped in the usual sterile fashion. Lidocaine 1% with local anesthesia. Modified Seldinger technique was used to advance a 6-Guyanese sheath in right femoral artery, 6-Guyanese JL4 catheter for left coronary angiography. We used the 6-Guyanese JR4 catheter to try and engage the right coronary artery, but right coronary artery appeared absent. We used a 6-Guyanese pigtail catheter to carry out left heart catheterization, left ventricular angiography. We then pulled back the pigtail catheter into the aortic root and aortic root angiography was performed. This was to evaluate the location of the right coronary artery. We found that the right coronary artery was nonexistent. The left circumflex artery continues as the right coronary artery, as well. PERCUTANEOUS INTERVENTION TO THE LEFT ANTERIOR DESCENDING ARTERY: Following completion of the diagnostic procedure, we carried out percutaneous intervention of the left anterior descending artery, which had a very long proximal and mid vessel lesion of up to 90% stenosis. We used a 6-Guyanese JL4 guide catheter to engage the left coronary artery. We used ChoICE floppy wire across the lesion and the tip of the wire was placed in the distal vessel. We carried out balloon angioplasty with Emerge 2.0 x 30 mm balloon. We stented the distal part of the lesion with Alpine Xience 2.25 x 15 mm stent. We stented the proximal portion of the lesion in the left anterior descending artery with Alpine Xience 2.5 x 28 mm stent. The 2 stents overlapped minimally. At the site of overlap, we carried out balloon angioplasty with Emerge 2.5 x 15 mm balloon. Subsequent angiography revealed 0% residual stenosis at these sites of up to 90% stenosis and flow throughout the vessel was normal. A small caliber second diagonal branch is jailed by the distal part of the stent. This vessel does not appear to be significantly compromised. It is a very small caliber vessel. Following completion of the intervention procedure, angiography of right femoral artery was carried out through the sheath after the angioplasty equipment had been removed. Mynx was used to achieve hemostasis. There was some groin bleeding and manual pressure was used to achieve further hemostasis. Overall, she tolerated the procedure well. She received intravenous heparin and double bolus Integrilin during the procedure. Prior to the procedure, given her history of contrast allergy, she was treated with intravenous Solu-Medrol and Benadryl. HEMODYNAMICS: Left ventricular end-diastolic pressure following coronary angiography was 28 mmHg. There is no significant pressure gradient across the aortic valve. Ascending aortic pressure was 174/81 with a mean of 123 mmHg. LEFT VENTRICULAR ANGIOGRAPHY: Left ventricular angiography was carried out in the right anterior oblique projection. Global left ventricular systolic function is normal. Left ventricular ejection fraction is approximately 60%. There is mild mitral regurgitation. CORONARY ANGIOGRAPHY: There is a single coronary vessel. Left main coronary artery divides into left anterior descending and left circumflex arteries. Left circumflex artery continues as the right coronary artery and the distal part of the left circumflex artery is located in the atrioventricular groove where, usually, the right coronary artery would be present. The left anterior descending artery had long proximal mid vessel lesion of up to 90%. This was treated with minimally overlapping stents. The proximal stent is Emerge 2.5 x 28 mm and the distal stent is Emerge 2.25 x 15 mm. The stent overlap was ballooned with Emerge 2.5 x 15 mm balloon. The left circumflex artery has 30% mid vessel stenosis and has approximately 60% distal stenosis following the origin of the posterior descending branch. The left circumflex artery continues as the right coronary artery. CONCLUSIONS: 1. Coronary artery disease as detailed below. There is a single coronary vessel. Left anterior descending artery had a long up to 90% proximal and mid vessel stenosis, which was successfully stented with slightly overlapping stents (Alpine Xience 2.5 x 28 and Alpine Xience 2.25 x 15 mm) stents. The left circumflex artery has mild mid vessel disease. The right coronary artery continues as the right coronary artery and has approximately 60% stenosis following the origin of the posterior descending branch. 2. Well preserved global left ventricular systolic function with ejection fraction of 60%. 3. Elevated left ventricular end-diastolic pressure. 4. Mild mitral regurgitation. DISCUSSION AND RECOMMENDATIONS: Aspirin, Plavix and statins have been added to the regimen. Beta blockers have been added to the regimen. Amlodipine is being continued. She remains hospitalized after today's procedure. Job ID: [id number] DocumentID: [id number] Dictated Date: 10/11/2017 22:08:34 Screen Cleaner Date: 10/11/2017 22:51:45 Dictated By: TATIANNA SUTTON MD, MA, FACP, FACC, MTDD
[2017-10-11] MEDS: ATORVASTATIN 40 MG (LIPITOR) TABLET PO SCH (23:03)
[2017-10-11 23:53] LABS: HEMOGLOBIN 11.2 G/DL (11.5-16.0); MEAN PLATELET VOLUME 10.3 FL (7.4-10.4); RED BLOOD COUNT 3.7 10^6/uL (4.35-5.85); WHITE BLOOD COUNT 9.5 10^3/uL (4.3-11.0)
[2017-10-12] VITALS (14 sets, daily range): BP systolic 109–135; BP diastolic 53–74
[2017-10-12] MEDS ORDERED: ENOXAPARIN 60 MG/0.6 ML (LOVENOX) SYR SC SCH (03:00)
[2017-10-12 05:01] LABS: BASOPHILS % (AUTO) 0 % (0-10); EOSINOPHILS % (AUTO) 0 % (0-10); HEMATOCRIT 31 % (35-52); HEMOGLOBIN 10.6 G/DL (11.5-16.0); LYMPHOCYTES % (AUTO) 6 % (12-44); MEAN CORPUSCULAR HEMOGLOBIN 31 PG (25-34); MEAN CORPUSCULAR HGB CONC 35 G/DL (32-36); MEAN CORPUSCULAR VOLUME 89 FL (80-99); MEAN PLATELET VOLUME 10.2 FL (7.4-10.4); MONOCYTES # (AUTO) 0.5 X 10^3 (0.0-1.0); MONOCYTES % (AUTO) 3 % (0-12); NEUTROPHILS # (AUTO) 14.2 X 10^3 (1.8-7.8); NEUTROPHILS % (AUTO) 91 % (42-75); PLATELET COUNT 242 10^3/uL (130-400); RED BLOOD COUNT 3.45 10^6/uL (4.35-5.85); WHITE BLOOD COUNT 15.6 10^3/uL (4.3-11.0)
[2017-10-12 05:25] LABS: ALANINE AMINOTRANSFERASE 21 U/L (0-55); ALBUMIN 3.4 GM/DL (3.2-4.5); ALKALINE PHOSPHATASE 64 U/L (40-136); BAND NEUTROPHILS 5 %; BILIRUBIN,TOTAL 0.5 MG/DL (0.1-1.0); BUN/CREATININE RATIO 11; CALCIUM 8.4 MG/DL (8.5-10.1); CARBON DIOXIDE 21 MMOL/L (21-32); CHLORIDE 100 MMOL/L (98-107); CHOLESTEROL 223 MG/DL (< 200); GFR ESTIMATED > 60; GLUCOSE 153 MG/DL (70-105); HDL CHOLESTEROL 64 MG/DL (40-60); MAGNESIUM 1.9 MG/DL (1.8-2.4); NEUTROPHILS % (MANUAL) 90 %; POTASSIUM 4.1 MMOL/L (3.6-5.0); SODIUM 129 MMOL/L (135-145); TOTAL PROTEIN 5.8 GM/DL (6.4-8.2); TRIGLYCERIDES 65 MG/DL (<150); VLDL CHOLESTEROL 13 MG/DL (5-40)
[2017-10-12 05:26] LABS: LYMPHOCYTES % (MANUAL) 4 %; MONOCYTES % (MANUAL) 1 %; RBC MORPH NORMAL
--- NOTE | 2017-10-12 05:46 | Pulmonary Consultation ---
History of Present Illness History of Present Illness Date of Consultation 10/12/17 05:39 Time Seen by Provider: 05:39 Date of Admission History of Present Illness 81yo with hx of HTN, TIAs, presented secondary to severe midsternal CP and pressure radiating to back. Onset was 8 hrs prior to admission. patient is now s /p cath with stents placed in LAD x 2. PT became hypotensive last night after morphine was given however did improve with IVF. I am consulted for pulmonary/ CRISTINA management. Allergies and Home Medications Allergies Coded Allergies: Sulfa (Sulfonamide Antibiotics) (Verified Allergy, Unknown, 03/10/06) amoxicillin (Verified Allergy, Unknown, 03/10/06) ciprofloxacin (Verified Allergy, Unknown, 01/02/16) gluten (Verified Allergy, Unknown, 01/02/16) iodamide meglumine (Verified Allergy, Unknown, 03/10/06) lactose (Verified Adverse Reaction, Mild, Diarrhea, 02/17/16) Uncoded Allergies: CONTRAST DYE (Allergy, Unknown, 12/19/13) Home Medications Albuterol Sulfate 1 Puff Puff, 2 PUFF IH Q4H PRN for SHORTNESS OF BREATH, ( Reported) 1 PUFF = 90 MCG Alprazolam 0.25 Mg Tablet, 0.0625 MG PO QIDACHS, (Reported) TAKES 1/4 OF A (0.25 MG) TABLET Amlodipine Besylate 5 Mg Tablet, 2.5 MG PO DAILY, (Reported) take 1/2 (5 mg) tablet once daily Cholecalciferol (Vitamin D3) 5,000 Unit Capsule, 5,000 UNIT PO DAILY, (Reported) Clopidogrel Bisulfate 75 Mg Tablet, 75 MG PO DAILY, (Reported) Cyanocobalamin (Vitamin B-12) 1,000 Mcg Tablet, 1,000 MCG PO DAILY, (Reported) Famotidine 20 Mg Tablet, 20 MG PO BID PRN for acid reflux, (Reported) Fluticasone Propionate 1 Ea Aero, 2 PUFF IH BID, (Reported) Lactobacillus Combo No.6 1 Each Tablet, 1 CAP PO DAILY, (Reported) Nebivolol HCl 5 Mg Tablet, 2.5 MG PO BID, (Reported) TAKES 1/2 OF A (5 MG) TABLET Phenylephrine HCl 30 Ml [place], 1 SPRAY NSEACH TID PRN for Allergies, (Reported) Past [id number]-Bmhlne Hx Past Med/Social Hx: Reviewed Nursing Past Med/Soc Hx Patient Social History Alcohol Use: Denies Use Recreational Drug Use: No 2nd Hand Smoke Exposure: No Recent Foreign Travel: No Contact w/Someone Who Travel: No Recent Infectious Disease Expo: No Recent Hopitalizations: No Physical Abuse: No Sexual Abuse: No Immunizations Up To Date Tetanus Booster (TDap): More than 5yrs Date of Pneumonia Vaccine: Feb 27, 2015 Date of Influenza Vaccine: Dec 29, 2015 Seasonal Allergies Seasonal Allergies: No Past Medical History Surgeries: Yes (Hemorrhoids, benign bladder tumor, neck vertebra fusion, left cataraact) Hysterectomy Respiratory: Yes Sleep Apnea, COPD Currently Using CPAP: No Currently Using BIPAP: No Cardiac: Yes (cardiac cath "years ago" by dr ramos, pt unsure of year) Hypertension Neurological: No Reproductive Disorders: No Female Reproductive Disorders: Denies [employer] History: Hysterectomy Sexually Transmitted Disease: No HIV/AIDS: No Genitourinary: Yes (bladder tumor removed) Bladder Infection Gastrointestinal: Yes Gastroesophageal Reflux, Hiatal Hernia Musculoskeletal: Yes (Hx hammertoe surgery) Arthritis Endocrine: No HEENT: Yes Cataract Loss of Vision: Denies Hearing Impairment: Denies Cancer: No Psychosocial: Yes Anxiety Nursing Suicide Risk Score: 0 Integumentary: No Blood Disorders: No Adverse Reaction/Blood Tranf: No Family Medical History Reviewed Nursing Family Hx Parkinson's disease G8 BROTHER No Pertinent Family Hx Review of Systems Time Seen by Provider: 06:05 Constitutional: Weakness, Malaise; No: Fever, Chills, Sweats, Other Eyes: No: Pain, Vision change, Conjunctivae inflammation, Eyelid inflammation, Other, Redness ENT: No: Ear pain, Ear discharge, Nose pain, Nose discharge, Nose congestion, Mouth pain, Mouth swelling, Throat pain, Throat swelling, Other Respiratory: No: Cough, Dry, Shortness of breath, SOB with excertion, Wheezing , Hemoptysis, Pleuritic Pain, Sputum, Wheezing, Other Cardiovascular: Chest Pain, Lt Headedness Gastrointestinal: No: Nausea, Vomiting, Abdominal Pain, Diarrhea, Constipation , Melena, Hematochezia, Other Genitourinary: No Dysuria, No Frequency, No Incontinence, No Hematuria, No Retention, No Other Sepsis Event Evaluation Height, Weight, BMI Height: 5'3.00" Weight: 130lbs. 0.0oz. 58.418941jj; 22.1 BMI Method:Stated Exam Exam Vital Signs Date Time Temp Pulse Resp B/P (MAP) Pulse Ox O2 Delivery O2 Flow Rate FiO2 10/12/17 05:00 57 135/58 (83) 97 Room Air 10/12/17 04:00 58 124/63 (83) 95 Room Air 10/12/17 03:00 79 119/56 (77) 97 Room Air 10/12/17 02:00 58 109/58 (75) 97 Room Air 10/12/17 01:00 61 10/12/17 01:00 60 20 120/58 (78) 96 Room Air 10/12/17 00:30 64 20 133/69 (90) 97 Room Air 10/12/17 00:15 62 16 124/61 (82) 96 Room Air 10/12/17 00:00 61 18 114/58 (76) 96 Room Air 10/12/17 00:00 96 Room Air 2.00 97 10/11/17 23:45 62 18 134/67 (89) 95 Room Air 10/11/17 23:30 63 17 114/78 (90) 95 Room Air 10/11/17 23:15 56 20 66/35 (45) 96 Room Air 10/11/17 23:00 63 19 106/56 (73) 94 Room Air 10/11/17 22:45 66 22 137/108 (118) 93 Room Air 10/11/17 22:30 97.9 66 20 103/83 (90) 91 Room Air 10/11/17 22:30 66 10/11/17 21:00 97 Room Air 2.00 97 10/11/17 20:00 96 Room Air 2.00 97 10/11/17 19:00 68 10/11/17 18:00 72 187/83 (117) 96 Room Air 10/11/17 17:45 70 181/85 (117) 95 Room Air 10/11/17 17:40 69 10/11/17 17:30 67 185/77 (113) 97 Room Air 10/11/17 17:25 97.8 Room Air 10/11/17 17:24 77 185/81 (115) 97 Room Air 10/11/17 17:15 97.9 78 19 176/78 95 Room Air 10/11/17 13:05 97 Nasal Cannula 2.00 97 10/11/17 12:57 Room Air 10/11/17 12:57 97.9 64 18 203/86 (125) Room Air I & O 10/12/17 07:00 Intake Total 1150 ml Balance 1150 ml Height & Weight Height: 5'3.00" Weight: 130lbs. 0.0oz. [id number]; 22.1 BMI Method:Stated General Appearance: No Apparent Distress, WD/WN, Anxious HEENT: PERRL/EOMI, TMs Normal, Normal ENT Inspection, Pharynx Normal Neck: Full Range of Motion, Normal Inspection, Non Tender, Supple Respiratory: Chest Non Tender, Lungs Clear, Normal Breath Sounds, No Accessory Muscle Use, No Respiratory Distress Cardiovascular: Regular Rate, Rhythm, No Edema, No Gallop, No JVD, No Murmur, Normal Peripheral Pulses Capillary Refill: Less Than 3 Seconds Extremity: Normal Capillary Refill, Normal Inspection, Normal Range of Motion, Non Tender, No Calf Tenderness Neurologic/Psychiatric: Alert, Oriented x3, No Motor/Sensory Deficits Skin: Normal Color, Diaphoresis Lymphatic: No Adenopathy Results Lab Laboratory Tests 10/11/17 13:04 10/11/17 23:45 10/12/17 04:50 Assessment/Plan Assessment/Plan Acute NSTEMI -S/p Cath -ASA, plavix, lovenox, statin Hyponatremia - probably secondary -Monitor -CHeck BNP Right kidney mass- probably cyst -Will do US of left kidney to confirm cyst vs mass Hx of CRISTINA - known to my office -PT has been having problems with mask leaks -She has a PSG pending this Sat per patient Hypotension - improved with IVF Hx of HTN GILMAR VILLATORO DO Oct 12, 2017 05:46
[2017-10-12] MEDS: NS IV 1000 ML 1,000 ML IV SCH ×3 (06:56→20:05)
[2017-10-12] MEDS: amLODIPine 10 MG (NORVASC) TAB PO SCH (08:14)
[2017-10-12] MEDS: ASPIRIN 81 MG CHEW (CHILDREN'S ASA) PO SCH (08:14)
[2017-10-12] MEDS: meTOprolol SUCCINATE 100 MG (TOPROL XL) TAB PO SCH (08:14)
--- NOTE | 2017-10-12 08:44 | Progress Note-Cardiology ---
Cardiology SOAP Progress Note Subjective: Sitting up in bed for morning meal. States she feels much better than yesterday. C/O lower right sided chest discomfort. No c/o dyspnea, palpitations, syncope or near syncope. No c/o right groin pain. Objective: I&O/Vital Signs 10/12/17 10/12/17 10/12/17 10/12/17 03:00 04:00 04:00 05:00 Pulse 79 58 57 B/P (MAP) 119/56 (77) 124/63 (83) 135/58 (83) Pulse Ox 97 95 96 97 O2 Delivery Room Air Room Air Room Air Room Air O2 Flow Rate 2.00 FiO2 97 10/12/17 10/12/17 10/12/17 10/12/17 06:00 07:00 07:00 08:00 Pulse 62 67 69 B/P (MAP) 117/74 (88) 124/58 (80) Pulse Ox 98 97 97 O2 Delivery Room Air Room Air Room Air 10/12/17 10/12/17 10/12/17 10/12/17 08:00 08:00 10:28 12:00 Temp 98.3 Pulse 69 69 Resp 18 B/P (MAP) 131/57 (81) 131/63 (85) Pulse Ox 97 97 97 O2 Delivery Room Air Room Air Room Air 10/12/17 10/12/17 13:00 14:27 Temp 98.0 Pulse 77 69 Resp 16 B/P (MAP) 126/53 (77) Pulse Ox 97 O2 Delivery Room Air 10/12/17 00:00 Intake Total 1150 ml Balance 1150 ml Weight (Pounds): 128 Weight (Ounces): 0.0 Weight (Calculated Kilograms): 58.150867 Side: right Groin site without hematoma: Yes Condition: DP/PT pulses palpable, extremity w/d/p Bruising: large amount of bruising Constitutional: AAO x 3, well-developed, well-nourished Respiratory: No accessory muscle use; lungs clear to percussion, lungs clear to auscultation Cardiovascular: regular rate-rhythm, S1 and S2, systolic murmur (soft MARION at card base) Gastrointestional: No tender; soft; No guarding, No rebound; audible bowel sounds Extremities: No clubbing, No cyanosis, No significant edema Neurologic/Psychiatric: oriented x 3, grossly intact Skin: No rash on exposed areas, No ulcerations on exposed areas Results/Procedures: Labs Laboratory Tests 10/11/17 17:05: Troponin I 2.52*H 10/11/17 23:45: White Blood Count 9.5, Red Blood Count 3.70L, Hemoglobin 11.2L, Hematocrit 33L, Mean Corpuscular Volume 89, Mean Corpuscular Hemoglobin 30, Mean Corpuscular Hemoglobin Concent 34, Red Cell Distribution Width 14.0, Platelet Count 269, Mean Platelet Volume 10.3 10/12/17 04:50: White Blood Count 15.6H, Red Blood Count 3.45L, Hemoglobin 10.6L, Hematocrit 31L , Mean Corpuscular Volume 89, Mean Corpuscular Hemoglobin 31, Mean Corpuscular Hemoglobin Concent 35, Red Cell Distribution Width 14.0, Platelet Count 242, Mean Platelet Volume 10.2, Neutrophils (%) (Auto) 91H, Lymphocytes (%) (Auto) 6L , Monocytes (%) (Auto) 3, Eosinophils (%) (Auto) 0, Basophils (%) (Auto) 0, Neutrophils # (Auto) 14.2H, Lymphocytes # (Auto) 1.0, Monocytes # (Auto) 0.5, Eosinophils # (Auto) 0.0, Basophils # (Auto) 0.0, Neutrophils % (Manual) 90, Lymphocytes % (Manual) 4, Monocytes % (Manual) 1, Band Neutrophils 5, Blood Morphology Comment NORMAL, Sodium Level 129L, Potassium Level 4.1, Chloride Level 100, Carbon Dioxide Level 21, Anion Gap 8, Blood Urea Nitrogen 8, Creatinine 0.70, Estimat Glomerular Filtration Rate > 60, BUN/Creatinine Ratio 11, Glucose Level 153H, Calcium Level 8.4L, Magnesium Level 1.9, Total Bilirubin 0.5, Aspartate Amino Transf (AST/SGOT) 55H, Alanine Aminotransferase ( ALT/SGPT) 21, Alkaline Phosphatase 64, Total Protein 5.8L, Albumin 3.4, Triglycerides Level 65, Cholesterol Level 223H, LDL Cholesterol Direct 147H, VLDL Cholesterol 13, HDL Cholesterol 64H, Thyroid Stimulating Hormone (TSH) 0.82 Procedures S/P cardiac cath with successful intervention of 10-11-17. Please refer to Dr. Meléndez's cardiac cath report of the same date for details. A/P: Assessment: Ac cor syndrome, treated with PCI n 10/11/17 (see below) Card cath of 10/11/17 showed the following: There is a single coronary vessel. Left anterior descending artery had a long up to 90% proximal and mid vessel stenosis, which was successfully stented with slightly overlapping stents ( Alpine Xience 2.5 x 28 and Alpine Xience 2.25 x 15 mm) stents. The left circumflex artery has mild mid vessel disease. The right coronary artery has approximately 60% stenosis following the origin of the posterior descending branch. Well-preserved global left ventricular systolic function with ejection fraction of 60%. Elevated left ventricular end-diastolic pressure. Large R groin hematoma post cath of 10/11/17 (stable) Hypertension - controlled HLD - LDL greater than 140 H/O CRISTINA - follows with Dr. Jackson - CPAP tx Mild leukocytosis MIld hyponatremia Sm hiatal hernia seen on CT of 10-11-17 Left renal mass seen on CT of 10-11-17 - medical services managing Chronic dizziness Vague h/o of mini stroke (on Plavix since) Plan: S/P cardiac cath with successful coronary stenting Continue with ASA, Plavix and atorvastatin Increase activity today Mild hyponatremia Leukocytosis Monitor lab closely Physician Assessment Physician Assessment No cp or palp or syncope. Intermittent dizziness and nausea Lungs: clear Cor: reg Ext: no c/c/e. Large amount of R groin bruising. Distal pulses palpable A&R * As documented in our note above that I updated in italics, and as noted below * Continue current med * Follow labs * We have encouraged ambulation Clinical Quality Measures AMI/AHF: ASA po Prior to arrival: LORENA Renae [facility] Oct 12, 2017 08:44 TATIANNA MELÉNDEZ MD [facility] F[facility] CCDS Oct 12, 2017 14:56
[2017-10-12] MEDS ORDERED: CLOPIDOGREL 75 MG (PLAVIX) TABLET PO SCH (09:00)
--- NOTE | 2017-10-12 09:00 | History & Physicial ---
History of Present Illness History of Present Illness Reason for visit/HPI PT IS AN 81 Y/O FEMALE WHO IS WELL KNOWN TO ME FROM CLINIC. SHE PRESENTED TO THE HOSPITAL WITH ACUTE ONSET OF CHEST PAIN AND PERSISTENT PAIN DESPITE TREATMENT IN THE EMERGENCY DEPARTMENT. DR. SUTTON WAS CONSULTED THE PT HAD A POSITIVE TROPONIN - SHE WAS EMERGENTLY TAKEN TO THE CARDIAC CATH SUITE FOR INTERVENTION WHERE THEY FOUND A 90% BLOCKAGE OF THE LAD WITH STENTS DEPLOYED FOR TREATMENT OF THE BLOCKAGE. Date of Admission Oct 11, 2017 at 15:24 Date Seen by Provider: Oct 12, 2017 Time Seen by Provider: 08:50 I consulted on this patient on 10/12/17 08:55 Attending Physician JA MENDEZ MD Admitting Physician Ja Mendez MD Consult DR. SUTTON - CARDIOLOGY Allergies and Home Medications Allergies Coded Allergies: Sulfa (Sulfonamide Antibiotics) (Verified Allergy, Unknown, 03/10/06) amoxicillin (Verified Allergy, Unknown, 03/10/06) ciprofloxacin (Verified Allergy, Unknown, 01/02/16) gluten (Verified Allergy, Unknown, 01/02/16) iodamide meglumine (Verified Allergy, Unknown, 03/10/06) lactose (Verified Adverse Reaction, Mild, Diarrhea, 02/17/16) Uncoded Allergies: CONTRAST DYE (Allergy, Unknown, 12/19/13) Home Medications Albuterol Sulfate 1 Puff Puff, 2 PUFF IH Q4H PRN for SHORTNESS OF BREATH, ( Reported) 1 PUFF = 90 MCG Alprazolam 0.25 Mg Tablet, 0.0625 MG PO QIDACHS, (Reported) TAKES 1/4 OF A (0.25 MG) TABLET Amlodipine Besylate 5 Mg Tablet, 2.5 MG PO DAILY, (Reported) take 1/2 (5 mg) tablet once daily Cholecalciferol (Vitamin D3) 5,000 Unit Capsule, 5,000 UNIT PO DAILY, (Reported) Clopidogrel Bisulfate 75 Mg Tablet, 75 MG PO DAILY, (Reported) Cyanocobalamin (Vitamin B-12) 1,000 Mcg Tablet, 1,000 MCG PO DAILY, (Reported) Famotidine 20 Mg Tablet, 20 MG PO BID PRN for acid reflux, (Reported) Fluticasone Propionate 1 Ea Aero, 2 PUFF IH BID, (Reported) Lactobacillus Combo No.6 1 Each Tablet, 1 CAP PO DAILY, (Reported) Nebivolol HCl 5 Mg Tablet, 2.5 MG PO BID, (Reported) TAKES 1/2 OF A (5 MG) TABLET Phenylephrine HCl 30 Ml [place], 1 SPRAY NSEACH TID PRN for Allergies, (Reported) Patient Home Medication List Home Medication List Reviewed: Yes Past Nratbjp-Urfmgb-Rissiu Hx Patient Social History Marrital Status: Living Status: lives at home with spouse Employed/Student: retired Alcohol Use: Denies Use Recreational Drug Use: No Smoking Status: Never a Smoker 2nd Hand Smoke Exposure: No Physical Abuse Screen: No Sexual Abuse: No Recent Foreign Travel: No Contact w/other who traveled: No Recent Hopitalizations: No Recent Infectious Disease Expo: No Immunizations Up To Date Tetanus Booster (TDap): More than 5yrs Date of Pneumonia Vaccine: Feb 27, 2015 Date of Influenza Vaccine: Dec 29, 2015 Seasonal Allergies Seasonal Allergies: No Surgeries Yes (Hemorrhoids, benign bladder tumor, neck vertebra fusion, left cataraact) Hysterectomy Respiratory Yes Currently Using CPAP: No Currently Using BIPAP: No Cardiovascular Yes (cardiac cath "years ago" by dr ramos, pt unsure of year) Hypertension Neurological No Reproductive System Hx Reproductive Disorders: No Sexually Transmitted Disease: No HIV/AIDS: No Female Reproductive Disorders: Denies [employer] History: Hysterectomy Genitourinary Yes (bladder tumor removed) Bladder Infection Gastrointestinal Yes Gastroesophageal Reflux, Hiatal Hernia Musculoskeletal Yes (Hx hammertoe surgery) Arthritis Endocrine History of Endocrine Disorders: No HEENT History of HEENT Disorders: Yes HEENT Disorders: Cataract Loss of Vision: Denies Hearing Impairment: Denies Cancer No Psychosocial History of Psychiatric Problem: Yes Behavioral Health Disorders: Anxiety Integumentary History of Skin or Integumenta: No Blood Transfusions History of Blood Disorders: No Adverse Reaction to a Blood Tr: No Reviewed Nursing Assessment Reviewed/Agree w Nursing PMH: Yes Family Medical History Significant Family History: Heart Disease, Other Conditions/Hx (parkinson's disease) Family Hx: Parkinson's disease G8 BROTHER Constitutional: No chills, No fever; malaise, weakness EENTM: No hoarseness, No mouth pain, No throat pain Respiratory: No cough, No dyspnea on exertion, No short of breath Cardiovascular: No chest pain (now resolved), No edema; Hx of Intervention ( yesterday evening two stents deployed); No palpitations Gastrointestinal: No abdominal pain, No constipation, No diarrhea, No nausea, No vomiting Genitourinary: No dysuria, No frequency Musculoskeletal: No back pain, No muscle pain, No muscle weakness Skin: No change in color, No rash; other (bruising right groin from intervention) Psychiatric/Neurological: Anxiety (chronic), Weakness All Other Systems Reviewed Negative Unless Noted: Yes Physical Exam Vital Signs Vital Signs - First Documented 10/11/17 10/11/17 00:00 13:05 Temp 98.5 Pulse Ox 97 O2 Flow Rate 2.00 FiO2 97 Capillary Refill : Less Than 3 Seconds Height, Weight, BMI Height: 5'3.00" Weight: 128lbs. 0.0oz. 58.002950we; 22.1 BMI Method:Stated General Appearance: No Apparent Distress, WD/WN Eyes: Bilateral Eye Normal Inspection, Bilateral Eye PERRL, Bilateral Eye EOMI HEENT: PERRL/EOMI, Pharynx Normal Neck: Full Range of Motion, Supple Respiratory: Chest Non Tender, Lungs Clear, Normal Breath Sounds, No Accessory Muscle Use, No Respiratory Distress Cardiovascular: Regular Rate, Rhythm, No Edema Gastrointestinal: Normal Bowel Sounds, No Organomegaly, No Pulsatile Mass, Non Tender, Soft Rectal: Deferred Back: Normal Inspection Extremity: Normal Capillary Refill, Non Tender, No Calf Tenderness, No Pedal Edema, Other (bruising in right groin down to medial thigh) Neurologic/Psychiatric: Alert, Oriented x3, No Motor/Sensory Deficits, Normal Mood/Affect Skin: Warm/Dry, Ecchymosis (right groin and medial thigh) Lymphatic: No Adenopathy Assessment/Plan Assessment and Plan CORONARY ARTERY DISEASE NON- ST-MYOCARDIAL INFARCTION HYPERTENSION HYPERLIPIDEMIA HEART CATHETERIZATION FINDINGS PER DR. SUTTON'S DICTATION FOLLOWS: CONCLUSIONS: 1. Coronary artery disease as detailed below. There is a single coronary vessel. Left anterior descending artery had a long up to 90% proximal and mid vessel stenosis, which was successfully stented with slightly overlapping stents (Alpine Xience 2.5 x 28 and Alpine Xience 2.25 x 15 mm) stents. The left circumflex artery has mild mid vessel disease. The right coronary artery continues as the right coronary artery and has approximately 60% stenosis following the origin of the posterior descending branch. 2. Well preserved global left ventricular systolic function with ejection fraction of 60%. 3. Elevated left ventricular end-diastolic pressure. 4. Mild mitral regurgitation. DISCUSSION AND RECOMMENDATIONS: Aspirin, Plavix and statins have been added to the regimen. Beta blockers have been added to the regimen. Amlodipine is being continued. She remains hospitalized after today's procedure. HYPERTENSION - PT ON AMLODIPINE 10MG AND METOPROLOL 100MG XL - SHE HAS HISTORICALLY NOT BEEN ABLE TO TOLERATE THE METOPROLOL DUE TO DIZZINESS AND "SICKEY" FEELING THAT SHE COMPLAINED OF CHRONICALLY UNTIL WE SWITCHED HER TO [facility]. SHE MAY NEED TO GO BACK TO [facility] ON DISCHARGE DUE TO HER PERSISTENT DIZZINESS ON METOPROLOL. HYPERLIPIDEMIA - WITH CORONARY ARTERY BLOCKAGE - CONTINUE WITH STATIN. CAD - WILL NEED PLAVIX, ASPIRIN AND STATIN ON DISCHARGE. DIZZINESS - SEE DISCUSSION UNDER HYPERTENSION. AGREE WITH PLAN TO KEEP PT TODAY - WILL HAVE NURSING STAFF WALK PATIENT SEVERAL TIMES TODAY. ANTICIPATE DISCHARGE TO HOME TOMORROW Admission Diagnosis CORONARY ARTERY DISEASE NON- ST-MYOCARDIAL INFARCTION HYPERTENSION HYPERLIPIDEMIA Admission Status: Observation Clinical Quality Measures AMI/AHF: ASA po Prior to arrival: No DVT/VTE Risk/Contraindication: Risk Factor Score Per Nursin RFS Level Per Nursing on Admit: 4+=Very High JA MENDEZ MD Oct 12, 2017 09:00
[2017-10-12] MEDS ORDERED: FAMOTIDINE 20 MG (PEPCID) TABLET PO NR (10:29)
[2017-10-12] MEDS: ALPRAZolam 0.25 MG (XANAX) TAB PO PRN (11:04)
[2017-10-12] MEDS: FAMOTIDINE 20 MG (PEPCID) TABLET PO SCH ×3 (11:04→20:08)
--- NOTE | 2017-10-12 13:38 | Diagnostic Imaging Report ---
Indication: Questionable left renal mass. Technique: Multiple real time grayscale images were obtained of the left kidney in various projections. Findings: Left kidney measures 9 x 5.2 x 4.2 cm. There is normal renal cortical thickness and echogenicity. There is a 1.8 x 1.7 cm simple left renal cyst. No hydronephrosis or calculi. No images of the bladder were obtained. Impression: 1.8 cm left renal cyst otherwise unremarkable. Dictated by: Dictated on workstation # [id number]
[2017-10-12] MEDS: ATORVASTATIN 40 MG (LIPITOR) TABLET PO SCH (20:05)
[2017-10-12] MEDS: RT-FLUTICASONE 110 MCG (FLOVENT) PER PUFF INH SCH (22:38)
[2017-10-13] VITALS (12 sets, daily range): BP systolic 113–147; BP diastolic 46–68
[2017-10-13] MEDS: NS IV 1000 ML 1,000 ML IV SCH (06:45)
[2017-10-13] MEDS: FAMOTIDINE 20 MG (PEPCID) TABLET PO SCH ×3 (07:41→20:46)
--- NOTE | 2017-10-13 07:44 | Pulmonary Progress Note ---
Subjective Time Seen by Provider: 07:44 Subjective/Events-last exam No complications noted. Sepsis Event Evaluation Height, Weight, BMI Height: 5'3.00" Weight: 130lbs. 1.0oz. 58.953739uh; 22.1 BMI Method:Stated Exam Exam Vital Signs Date Time Temp Pulse Resp B/P (MAP) Pulse Ox O2 Delivery O2 Flow Rate FiO2 10/13/17 03:58 98 Room Air 10/13/17 03:57 98.6 85 16 119/60 (79) 98 Room Air 10/13/17 01:00 62 10/13/17 00:00 97.2 69 16 123/53 (76) 98 Room Air 10/13/17 00:00 98 Room Air 10/12/17 22:38 97 Room Air 10/12/17 21:00 97 Room Air 10/12/17 20:00 96 Room Air 10/12/17 20:00 99.1 73 18 131/58 (82) 96 Room Air 10/12/17 19:00 74 10/12/17 16:00 97 Room Air 10/12/17 14:27 98.0 69 16 126/53 (77) 97 Room Air 10/12/17 13:00 77 10/12/17 12:00 97 Room Air 10/12/17 10:28 69 131/63 (85) 10/12/17 08:00 98.3 69 18 131/57 (81) 97 Room Air 10/12/17 08:00 97 Room Air 10/12/17 08:00 97 Room Air I & O 10/13/17 07:00 Intake Total 1150 ml Balance 1150 ml Height & Weight Height: 5'3.00" Weight: 130lbs. 1.0oz. 58.391422rh; 22.1 BMI Method:Stated General Appearance: No Apparent Distress, WD/WN HEENT: PERRL/EOMI, Pharynx Normal Neck: Full Range of Motion, Supple Respiratory: Chest Non Tender, Lungs Clear, Normal Breath Sounds, No Accessory Muscle Use, No Respiratory Distress Cardiovascular: Regular Rate, Rhythm, No Edema Capillary Refill: Less Than 3 Seconds Extremity: Normal Capillary Refill, Non Tender, No Calf Tenderness, No Pedal Edema, Other (bruising in right groin down to medial thigh) Neurologic/Psychiatric: Alert, Oriented x3, No Motor/Sensory Deficits, Normal Mood/Affect Skin: Warm/Dry, Ecchymosis (right groin and medial thigh) Lymphatic: No Adenopathy Results Lab Laboratory Tests 10/11/17 13:04 10/11/17 23:45 10/12/17 04:50 Assessment/Plan Assessment/Plan Acute NSTEMI -S/p Cath -ASA, plavix, lovenox, statin Hyponatremia - probably secondary -Monitor Right kidney mass- probably cyst - US of left kidney to confirms cyst Hx of CRISTINA - known to my office -PT has been having problems with mask leaks -She has a PSG pending this Sat per patient Hypotension - improved with IVF Hx of HTN I am going to f/u with patient out patient to monitor CPAP and review up coming PSG. Labs and radiology reviewed. GILMAR VILLATORO DO Oct 13, 2017 07:44
[2017-10-13] MEDS: ASPIRIN 81 MG CHEW (CHILDREN'S ASA) PO SCH (07:59)
[2017-10-13] MEDS: CYANOCOBALAMIN 1,000 MCG (VITAMIN B-12) TABLET PO SCH (07:59)
[2017-10-13] MEDS: CLOPIDOGREL 75 MG (PLAVIX) TABLET PO SCH (08:00)
[2017-10-13] MEDS: meTOprolol SUCCINATE 100 MG (TOPROL XL) TAB PO SCH (08:00)
[2017-10-13] MEDS: amLODIPine 10 MG (NORVASC) TAB PO SCH (08:00)
[2017-10-13 08:23] LABS: HEMOGLOBIN 8.8 G/DL (11.5-16.0); MEAN PLATELET VOLUME 10.3 FL (7.4-10.4); RED BLOOD COUNT 2.96 10^6/uL (4.35-5.85); RED CELL DISTRIBUTION WIDTH 14.4 % (10.0-14.5); WHITE BLOOD COUNT 13.4 10^3/uL (4.3-11.0)
[2017-10-13 08:40] LABS: BUN/CREATININE RATIO 13; CALCIUM 8.4 MG/DL (8.5-10.1); CARBON DIOXIDE 23 MMOL/L (21-32); CHLORIDE 106 MMOL/L (98-107); CREATININE SERUM 0.72 MG/DL (0.60-1.30); GFR ESTIMATED > 60; GLUCOSE 104 MG/DL (70-105); POTASSIUM 3.1 MMOL/L (3.6-5.0); SODIUM 137 MMOL/L (135-145)
[2017-10-13] MEDS: RT-FLUTICASONE 110 MCG (FLOVENT) PER PUFF INH SCH ×2 (08:41→19:35)
--- NOTE | 2017-10-13 08:48 | Progress Note-Cardiology ---
Cardiology SOAP Progress Note Subjective: C/O discomfort at the right groin site. No c/o CP, palpitations, syncope or near syncope. C/O some nausea, but feels it is better. Objective: I&O/Vital Signs 10/13/17 10/13/17 10/13/17 10/13/17 07:00 07:54 08:00 08:00 Temp 97.9 Pulse 66 71 Resp 14 B/P (MAP) 123/51 (75) Pulse Ox 98 98 98 O2 Delivery Room Air Room Air Room Air 10/13/17 10/13/17 10/13/17 10/13/17 08:41 12:33 12:35 12:35 Temp 98.2 98.2 Pulse 68 68 Resp 16 16 B/P (MAP) 126/56 126/56 (79) Pulse Ox 95 100 100 O2 Delivery Room Air Room Air Room Air Room Air 10/13/17 10/13/17 10/13/17 10/13/17 12:53 13:00 15:36 16:00 Temp 98.8 97.5 Pulse 70 74 67 Resp 14 16 B/P (MAP) 126/51 113/55 Pulse Ox 100 97 95 O2 Delivery Room Air Room Air Room Air 10/13/17 10/13/17 10/13/17 16:45 17:02 17:28 Temp 98.8 98.9 99.0 Pulse 64 66 68 Resp 16 16 16 B/P (MAP) 118/56 (76) 118/56 130/46 Pulse Ox 95 95 95 O2 Delivery Room Air Room Air Room Air 10/13/17 00:00 Intake Total 950 ml Balance 950 ml Weight (Pounds): 130 Weight (Ounces): 1.0 Weight (Calculated Kilograms): 58.762080 Side: right Groin site without hematoma: Yes Condition: DP/PT pulses palpable, extremity w/d/p Bruising: large amount of bruising Constitutional: AAO x 3, well-developed, well-nourished Respiratory: No accessory muscle use; lungs clear to percussion, lungs clear to auscultation Cardiovascular: regular rate-rhythm, S1 and S2, systolic murmur (soft MARION at card base) Gastrointestional: No tender; soft; No guarding, No rebound; audible bowel sounds Extremities: No clubbing, No cyanosis, No significant edema Neurologic/Psychiatric: oriented x 3, grossly intact Skin: No rash on exposed areas, No ulcerations on exposed areas Results/Procedures: Labs Laboratory Tests 10/13/17 08:12: White Blood Count 13.4H, Red Blood Count 2.96L, Hemoglobin 8.8L, Hematocrit 27L , Mean Corpuscular Volume 91, Mean Corpuscular Hemoglobin 30, Mean Corpuscular Hemoglobin Concent 33, Red Cell Distribution Width 14.4, Platelet Count 217, Mean Platelet Volume 10.3, Sodium Level 137, Potassium Level 3.1L, Chloride Level 106, Carbon Dioxide Level 23, Anion Gap 8, Blood Urea Nitrogen 9, Creatinine 0.72, Estimat Glomerular Filtration Rate > 60, BUN/Creatinine Ratio 13, Glucose Level 104, Calcium Level 8.4L Procedures NAME: AKILA DURAN [facility] REC#: [id number] PT STATUS: ADM IN : 1935 PHYSICIAN: GILMAR JACKSON DO ADMIT DATE: 10/12/17/ICU Signed Date of Exam: 10/12/17 RENAL LIMITED [id number] Indication: Questionable left renal mass. Technique: Multiple real time grayscale images were obtained of the left kidney in various projections. Findings: Left kidney measures 9 x 5.2 x 4.2 cm. There is normal renal cortical thickness and echogenicity. There is a 1.8 x 1.7 cm simple left renal cyst. No hydronephrosis or calculi. No images of the bladder were obtained. Impression: 1.8 cm left renal cyst otherwise unremarkable. Dictated by: Dictated on workstation # [id number] Dict: 10/12/17 1331 Trans: 10/12/17 135 Interpreted by: KAYLAH LOPES MD Electronically signed by: KAYLAH LOPES MD 10/12/17 9218 A/P: Assessment: Ac cor syndrome, 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 Left anterior descending artery had a long up to 90% proximal and mid vessel stenosis, which was successfully stented with slightly overlapping stents ( Alpine Xience 2.5 x 28 and Alpine Xience 2.25 x 15 mm) stents. The left circumflex artery has mild mid vessel disease. The right coronary artery has approximately 60% stenosis following the origin of the posterior descending branch. Well-preserved global left ventricular systolic function with ejection fraction of 60%. Elevated left ventricular end-diastolic pressure. Large R groin hematoma post cath of 10/11/17 (stable). R groin u/s of 10/13/17 does not show any pseudoaneurysm or any significant issue Anemia, likely due to post-procedural blood loss Hypertension - controlled HLD - LDL greater than 140 H/O CRISTINA - follows with Dr. Jackson - CPAP tx Mild leukocytosis - improving MIld hyponatremia - resolved Hypokalemia - replace Mod anemia - monitor Sm hiatal hernia seen on CT of 10-11-17 Left renal mass seen on CT of 10-11-17 - medical services managing Chronic dizziness Vague h/o of mini stroke (on Plavix since) Plan: S/P cardiac cath with successful coronary stenting Continue with ASA, Plavix and atorvastatin Increase activity today Mild hyponatremia - resolved Leukocytosis - improving S/P right groin hematoma with extensive bruising - u/s groin today Anemia - transfuse 2 units PRBC Mild hypokalemia - replace D/C IVF Monitor lab closely Physician Assessment Physician Assessment No cp or palp or syncope or shortness of breath. Gen weakness Lungs: clear Cor: reg Ext: no c/c/e. Large amt of R groin bruising A&R * As documented in our note above that I updated in italics and as noted below * Continue current regimen. Blood transfusion today * I had a detailed discussion with her and her regarding her CV issues and answered questions Clinical Quality Measures AMI/AHF: ASA po Prior to arrival: LORENA Renae Oct 13, 2017 08:48 TATIANNA SUTTON MD FACP FACC CCDS Oct 13, 2017 17:44
[2017-10-13] MEDS ORDERED: KCL 20 MEQ TAB (K-DUR) PO NR (09:00)
--- NOTE | 2017-10-13 09:16 | Discharge Summary ---
Diagnosis/Chief Complaint Date of Admission Oct 12, 2017 at 08:56 Date of Discharge Discharge Date: Oct 13, 2017 Discharge Time: 13:00 Admission Diagnosis Admission Diagnosis CORONARY ARTERY DISEASE NON- ST-MYOCARDIAL INFARCTION HYPERTENSION HYPERLIPIDEMIA Discharge Diagnosis CORONARY ARTERY DISEASE NON- ST-MYOCARDIAL INFARCTION HYPERTENSION HYPERLIPIDEMIA ANEMIA RIGHT GROIN HEMATOMA Reason Hospital Visit PT IS AN 81 Y/O FEMALE WHO IS WELL KNOWN TO ME FROM CLINIC. SHE PRESENTED TO THE HOSPITAL WITH ACUTE ONSET OF CHEST PAIN AND PERSISTENT PAIN DESPITE TREATMENT IN THE EMERGENCY DEPARTMENT. DR. SUTTON WAS CONSULTED THE PT HAD A POSITIVE TROPONIN - SHE WAS EMERGENTLY TAKEN TO THE CARDIAC CATH SUITE FOR INTERVENTION WHERE THEY FOUND A 90% BLOCKAGE OF THE LAD WITH STENTS DEPLOYED FOR TREATMENT OF THE BLOCKAGE. Discharge Summary Procedures: HEART CATHETERIZATION CT OF CHEST RIGHT GROIN ULTRASOUND Discharge Physical Examination Allergies: Coded Allergies: Sulfa (Sulfonamide Antibiotics) (Verified Allergy, Unknown, 03/10/06) amoxicillin (Verified Allergy, Unknown, 03/10/06) ciprofloxacin (Verified Allergy, Unknown, 01/02/16) gluten (Verified Allergy, Unknown, 01/02/16) iodamide meglumine (Verified Allergy, Unknown, 03/10/06) lactose (Verified Adverse Reaction, Mild, Diarrhea, 02/17/16) Uncoded Allergies: CONTRAST DYE (Allergy, Unknown, 12/19/13) Vitals & I&Os Vital Signs Date Time Temp Pulse Resp B/P (MAP) Pulse Ox O2 Delivery O2 Flow Rate FiO2 10/13/17 08:41 95 Room Air 10/13/17 07:54 97.9 71 14 123/51 (75) 10/12/17 04:00 2.00 97 General Appearance: Alert, Oriented X3, Cooperative, No Acute Distress HEENT: Atraumatic, PERRLA, Mucous Memb Moist/Orange Respiratory: Clear to Auscultation, Normal Air Movement Cardiovascular: Regular Rate Abdominal: Normal Bowel Sounds, Soft, No Tenderness Extremities: No Cyanosis Neuro: Strength at 5/5 X4 Ext, Cranial Nerves 3-12 NL Psych/Mental Status: Mental Status NL, Mood NL Hospital Course CORONARY ARTERY DISEASE NON- ST-MYOCARDIAL INFARCTION HYPERTENSION HYPERLIPIDEMIA HEART CATHETERIZATION FINDINGS PER DR. SUTTON'S DICTATION FOLLOWS: CONCLUSIONS: 1. Coronary artery disease as detailed below. There is a single coronary vessel. Left anterior descending artery had a long up to 90% proximal and mid vessel stenosis, which was successfully stented with slightly overlapping stents (Alpine Xience 2.5 x 28 and Alpine Xience 2.25 x 15 mm) stents. The left circumflex artery has mild mid vessel disease. The right coronary artery continues as the right coronary artery and has approximately 60% stenosis following the origin of the posterior descending branch. 2. Well preserved global left ventricular systolic function with ejection fraction of 60%. 3. Elevated left ventricular end-diastolic pressure. 4. Mild mitral regurgitation. DISCUSSION AND RECOMMENDATIONS: Aspirin, Plavix and statins have been added to the regimen. Beta blockers have been added to the regimen. Amlodipine is being continued. She remains hospitalized after today's procedure. HYPERTENSION - PT ON AMLODIPINE 10MG AND METOPROLOL 100MG XL - SHE HAS HISTORICALLY NOT BEEN ABLE TO TOLERATE THE METOPROLOL DUE TO DIZZINESS AND "SICKEY" FEELING THAT SHE COMPLAINED OF CHRONICALLY UNTIL WE SWITCHED HER TO [facility]. SHE MAY NEED TO GO BACK TO [facility] ON DISCHARGE DUE TO HER PERSISTENT DIZZINESS ON METOPROLOL. HYPERLIPIDEMIA - WITH CORONARY ARTERY BLOCKAGE - CONTINUE WITH STATIN. CAD - WILL NEED PLAVIX, ASPIRIN AND STATIN ON DISCHARGE. DIZZINESS - SEE DISCUSSION UNDER HYPERTENSION. ANEMIA - DILUTIONAL WELL DUE TO BLOOD LOSS POST HEART CATHETERIZATION - MONITOR OUTPATIENT. RIGHT GROIN HEMATOMA - CHECK ULTRASOUND TODAY DISCHARGE TO HOME TODAY - FOLLOW UP IN OFFICE IN ONE WEEK. Pending Labs Laboratory Tests 10/13/17 08:12: White Blood Count 13.4, Red Blood Count 2.96, Hemoglobin 8.8, Hematocrit 27, Mean Corpuscular Volume 91, Mean Corpuscular Hemoglobin 30, Mean Corpuscular Hemoglobin Concent 33, Red Cell Distribution Width 14.4, Platelet Count 217, Mean Platelet Volume 10.3, Sodium Level 137, Potassium Level 3.1, Chloride Level 106, Carbon Dioxide Level 23, Anion Gap 8, Blood Urea Nitrogen 9, Creatinine 0.72, Estimat Glomerular Filtration Rate > 60, BUN/Creatinine Ratio 13, Glucose Level 104, Calcium Level 8.4 Discharge Condition at discharge IMPROVED - CHEST PAIN RESOLVED Instructions to patient/family Please see electronic discharge instructions given to patient. Discharge Medications Reviewed and agree with Discharge Medication list on patient's Discharge Instruction sheet Clinical Quality Measures AMI/AHF: ASA po Prior to arrival: No DVT/VTE Risk/Contraindication: Risk Factor Score Per Nursin RFS Level Per Nursing on Admit: 4+=Very High JA DURAN MD Oct 13, 2017 09:16
[2017-10-13] MEDS ORDERED: ATOR40TA PO (09:19)
[2017-10-13] MEDS ORDERED: AMLO10TA2 PO (09:19)
[2017-10-13] MEDS ORDERED: METO-395 PO (09:19)
[2017-10-13] MEDS ORDERED: ASPI-999 PO (09:19)
--- NOTE | 2017-10-13 09:20 | Discharge Inst-Complex ---
PDI Med Rec & Follow Up Appt. New Medications: Amlodipine Besylate (Amlodipine Besylate) 10 Mg Tablet 10 MG PO DAILY, #30 TAB 6 Refills Aspirin (Aspirin) 81 Mg Tab.chew 81 MG PO DAILY, #100 TAB 3 Refills Atorvastatin Calcium (Lipitor) 40 Mg Tablet 80 MG PO HS, #30 TAB 11 Refills Metoprolol Succinate (Metoprolol Succinate) 100 Mg Tab.er.24h 100 MG PO DAILY, #30 TAB 6 Refills Continued Medications: Albuterol Sulfate (Ventolin Hfa) 1 Puff Puff 2 PUFF IH Q4H PRN for SHORTNESS OF BREATH, PUFF 1 PUFF = 90 MCG Alprazolam (Alprazolam) 0.25 Mg Tablet 0.0625 MG PO QIDACHS TAKES 1/4 OF A (0.25 MG) TABLET Cholecalciferol (Vitamin D3) (Vitamin D3) 5,000 Unit Capsule 5000 UNIT PO DAILY, CAP Clopidogrel Bisulfate (Clopidogrel) 75 Mg Tablet 75 MG PO DAILY, TAB Cyanocobalamin (Vitamin B-12) (Vitamin B-12) 1,000 Mcg Tablet 1000 MCG PO DAILY, TAB Famotidine (Famotidine) 20 Mg Tablet 20 MG PO BID PRN for acid reflux Fluticasone Propionate (Flovent Hfa 110 mcg) 1 Ea Aero 2 PUFF IH BID Lactobacillus Combo No.6 (Probiotic Complex) 1 Each Tablet 1 CAP PO DAILY Phenylephrine HCl (Nasal Parker) 30 Ml [place] 1 SPRAY NSEACH TID PRN for Allergies, SPRAY Discontinued Medications: Amlodipine Besylate (Amlodipine Besylate) 5 Mg Tablet 2.5 MG PO DAILY take 1/2 (5 mg) tablet once daily Nebivolol HCl (Bystolic) 5 Mg Tablet 2.5 MG PO BID, TAB TAKES 1/2 OF A (5 MG) TABLET Prescription: Transmitted to Pharmacy Activity, Diet and PDI Resume Normal Activity: Yes Discharge Diet: Low Fat/Low Cholesterol Drink 6-8 Glasses of Fluid/Day: Yes Driving Instructions: No Driving for 24 Hours Symptoms to Reoprt to : Appetite Changes, Bleeding Excessive, Fever Over 101 Degrees F, Pain/Pressure in Chest For Problems or Questions: Contact Your Physician, Go to Emergency Room JA DURAN MD Oct 13, 2017 09:20
--- NOTE | 2017-10-13 12:26 | Diagnostic Imaging Report ---
Indication: Right groin pain, status post heart cath, possible pseudoaneurysm. Comparison: None Findings: The visualized right common femoral artery and vein are grossly normal. There is no fluid collection, mass or occlusion. There is no pseudoaneurysm. Impression: No pseudoaneurysm identified. Dictated by: Dictated on workstation # [id number]
[2017-10-13] MEDS: ATORVASTATIN 40 MG (LIPITOR) TABLET PO SCH (20:46)
[2017-10-13] MEDS: ALPRAZolam 0.25 MG (XANAX) TAB PO PRN (20:53)
[2017-10-14 03:43] LABS: HEMOGLOBIN 11.4 G/DL (11.5-16.0); MEAN PLATELET VOLUME 10.4 FL (7.4-10.4); RED BLOOD COUNT 3.69 10^6/uL (4.35-5.85); RED CELL DISTRIBUTION WIDTH 14.7 % (10.0-14.5); WHITE BLOOD COUNT 10.6 10^3/uL (4.3-11.0)
[2017-10-14 04:00] VITALS: BP 131/63
[2017-10-14 04:00] LABS: BUN/CREATININE RATIO 14; CALCIUM 8.5 MG/DL (8.5-10.1); CARBON DIOXIDE 25 MMOL/L (21-32); CHLORIDE 105 MMOL/L (98-107); CREATININE SERUM 0.66 MG/DL (0.60-1.30); GFR ESTIMATED > 60; GLUCOSE 96 MG/DL (70-105); MAGNESIUM 1.8 MG/DL (1.8-2.4); POTASSIUM 3.8 MMOL/L (3.6-5.0); SODIUM 136 MMOL/L (135-145)
[2017-10-14 09:14] VITALS: BP 133/57
[2017-10-14] MEDS: meTOprolol SUCCINATE 100 MG (TOPROL XL) TAB PO SCH (09:18)
[2017-10-14] MEDS: CYANOCOBALAMIN 1,000 MCG (VITAMIN B-12) TABLET PO SCH (09:18)
[2017-10-14] MEDS: CLOPIDOGREL 75 MG (PLAVIX) TABLET PO SCH (09:18)
[2017-10-14] MEDS: ASPIRIN 81 MG CHEW (CHILDREN'S ASA) PO SCH (09:18)
[2017-10-14] MEDS: amLODIPine 10 MG (NORVASC) TAB PO SCH (09:18)
[2017-10-14] MEDS: FAMOTIDINE 20 MG (PEPCID) TABLET PO SCH (09:18)
[2017-10-14] MEDS: RT-FLUTICASONE 110 MCG (FLOVENT) PER PUFF INH SCH (09:23)
--- NOTE | 2017-10-14 09:36 | Pulmonary Progress Note ---
Subjective Time Seen by Provider: 09:36 Subjective/Events-last exam No complications noted. Sepsis Event Evaluation Height, Weight, BMI Height: 5'3.00" Weight: 135lbs. 3.0oz. 61.513096ok; 22.1 BMI Method:Stated Exam Exam Vital Signs Date Time Temp Pulse Resp B/P (MAP) Pulse Ox O2 Delivery O2 Flow Rate FiO2 10/14/17 09:14 98.8 76 16 133/57 (82) 97 Room Air 10/14/17 07:00 69 10/14/17 04:00 98 Room Air 10/14/17 04:00 97.4 71 16 131/63 (85) 98 Room Air 10/14/17 01:00 65 10/13/17 23:20 96 Room Air 10/13/17 23:16 97.2 75 16 147/68 (94) 96 Room Air 10/13/17 21:00 Room Air 10/13/17 20:00 98 Room Air 10/13/17 20:00 98.4 69 15 127/60 (82) 95 Room Air 10/13/17 19:00 73 10/13/17 17:28 99.0 68 16 130/46 95 Room Air 10/13/17 17:02 98.9 66 16 118/56 95 Room Air 10/13/17 16:45 98.8 64 16 118/56 (76) 95 Room Air 10/13/17 16:00 95 Room Air 10/13/17 15:36 97.5 67 16 113/55 97 Room Air 10/13/17 13:00 74 10/13/17 12:53 98.8 70 14 126/51 100 Room Air 10/13/17 12:35 100 Room Air 10/13/17 12:35 98.2 68 16 126/56 (79) 100 Room Air 10/13/17 12:33 98.2 68 16 126/56 Room Air I & O 10/14/17 07:00 Intake Total 1900 ml Balance 1900 ml Height & Weight Height: 5'3.00" Weight: 135lbs. 3.0oz. 61.225327ta; 22.1 BMI Method:Stated General Appearance: No Apparent Distress, WD/WN HEENT: PERRL/EOMI, Pharynx Normal Neck: Full Range of Motion, Supple Respiratory: Chest Non Tender, Lungs Clear, Normal Breath Sounds, No Accessory Muscle Use, No Respiratory Distress Cardiovascular: Regular Rate, Rhythm, No Edema Capillary Refill: Less Than 3 Seconds Extremity: Normal Capillary Refill, Non Tender, No Calf Tenderness, No Pedal Edema, Other (bruising in right groin down to medial thigh) Neurologic/Psychiatric: Alert, Oriented x3, No Motor/Sensory Deficits, Normal Mood/Affect Skin: Warm/Dry, Ecchymosis (right groin and medial thigh) Lymphatic: No Adenopathy Results Lab Laboratory Tests 10/13/17 08:12 10/14/17 03:30 Assessment/Plan Assessment/Plan Acute NSTEMI -S/p Cath -ASA, plavix, lovenox, statin Hyponatremia - probably secondary -Monitor Right kidney mass- probably cyst - US of left kidney to confirms cyst Hx of CRISTINA - known to my office -PT has been having problems with mask leaks -She has a PSG pending this Sat per patient Hypotension - improved with IVF Hx of HTN I am going to f/u with patient out patient to monitor CPAP and review up coming PSG. Labs and radiology reviewed. GILMAR VILLATORO DO Oct 14, 2017 09:36
--- NOTE | 2017-10-14 09:40 | Progress Note-Cardiology ---
Cardiology SOAP Progress Note Subjective: Sitting up in bed. No c/o CP, dyspnea, palpitations, syncope, near syncope, n/ v. Wants to go home. C/O some continued right groin discomfort, but improving. Objective: I&O/Vital Signs 10/14/17 10/14/17 10/14/17 10/14/17 07:00 08:45 08:45 09:14 Temp 98.8 Pulse 69 76 Resp 16 B/P (MAP) 133/57 (82) Pulse Ox 99 97 O2 Delivery Room Air Room Air Room Air 10/14/17 10:57 Pulse 76 Resp 16 B/P (MAP) 133/57 Pulse Ox 97 O2 Delivery Room Air 10/13/17 23:59 Intake Total 1425 ml Balance 1425 ml Weight (Pounds): 135 Weight (Ounces): 3.0 Weight (Calculated Kilograms): 61.894759 Side: right Groin site without hematoma: Yes Condition: DP/PT pulses palpable, extremity w/d/p Bruising: large amount of bruising Constitutional: AAO x 3, well-developed, well-nourished Respiratory: No accessory muscle use; lungs clear to percussion, lungs clear to auscultation Cardiovascular: regular rate-rhythm, S1 and S2, systolic murmur (soft MARION at card base) Gastrointestional: No tender; soft; No guarding, No rebound; audible bowel sounds Extremities: No clubbing, No cyanosis, No significant edema Neurologic/Psychiatric: oriented x 3, grossly intact Skin: No rash on exposed areas, No ulcerations on exposed areas Results/Procedures: Labs Laboratory Tests 10/14/17 03:30: White Blood Count 10.6, Red Blood Count 3.69L, Hemoglobin 11.4#L, Hematocrit 33L , Mean Corpuscular Volume 89, Mean Corpuscular Hemoglobin 31, Mean Corpuscular Hemoglobin Concent 35, Red Cell Distribution Width 14.7H, Platelet Count 160, Mean Platelet Volume 10.4, Sodium Level 136, Potassium Level 3.8, Chloride Level 105, Carbon Dioxide Level 25, Anion Gap 6, Blood Urea Nitrogen 9, Creatinine 0.66, Estimat Glomerular Filtration Rate > 60, BUN/Creatinine Ratio 14, Glucose Level 96, Calcium Level 8.5, Magnesium Level 1.8 Laboratory Tests 10/13/17 08:12 10/14/17 03:30 A/P: Assessment: Ac cor syndrome, 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 Left anterior descending artery had a long up to 90% proximal and mid vessel stenosis, which was successfully stented with slightly overlapping stents ( Alpine Xience 2.5 x 28 and Alpine Xience 2.25 x 15 mm) stents. The left circumflex artery has mild mid vessel disease. The right coronary artery has approximately 60% stenosis following the origin of the posterior descending branch. Well-preserved global left ventricular systolic function with ejection fraction of 60%. Elevated left ventricular end-diastolic pressure. Large R groin hematoma post cath of 10/11/17 (stable). R groin u/s of 10/13/17 does not show any pseudoaneurysm or any significant issue Anemia, likely due to post-procedural blood loss - H/H improved following transfusion of 2 units PRBC Hypertension - controlled HLD - LDL greater than 140 H/O CRISTINA - follows with Dr. Jackson - CPAP tx Mild leukocytosis - improving MIld hyponatremia - resolved Hypokalemia - replace Mod anemia - monitor Sm hiatal hernia seen on CT of 10-11-17 Left renal mass seen on CT of 10-11-17 - medical services managing Chronic dizziness Vague h/o of mini stroke (on Plavix since) Plan: H/H improved following transfusion Continue current medication regimen Advised out pt f/u appt in 4 weeks or sooner if needed Risk factor modification advised Physician Assessment Physician Assessment No cp or palp or syncope or significant groin discomfort or shortness of breath at rest or leg swelling/discomfort. Wishes to go home Lungs: clear Cor: reg Ext: no c/c/e. Large amount of bruising in the R groin A&R * As documented in our note above that I updated in italics and as noted below * I reviewed his cath findings and interventions undertaken with her and her * Risk factor mod reviewed * Rationale and importance of DAPT and stains reviewed and compliance advised * She understands all of the above and states he will comply and f/u as an outpt Clinical Quality Measures AMI/AHF: ASA po Prior to arrival: LORENA Renae Oct 14, 2017 09:40 TATIANNA SUTTON MD FACP FACC CCDS Oct 14, 2017 16:29
[2017-10-14 10:57] VITALS: BP 133/57
== END 2017-10-14 10:57 | disposition home health service (06) | DRG 247 ==
LOC: EDUNIT# 12:57 → ER 12:59 → ICU 15:24 → UNDOADMOB 15:24 → ICU 17:00 → INTOOBSV 10-12 08:56 → OBSVTOIN 10-12 08:56 → UNDODISIN 10-14 10:57
PROVIDERS: ADMIT Internal Medicine; ATTEND Internal Medicine
PROC: 027035Z Dilation of Coronary Artery, One Artery with Two Drug-eluting Intraluminal Devices, Percutaneous Approach (ICD-10-PCS; principal; 2017-10-11)
DX: I21.4 Non-ST elevation (NSTEMI) myocardial infarction (principal); I25.110 Atherosclerotic heart disease of native coronary artery with unstable angina pectoris; I97.630 Postprocedural hematoma of a circulatory system organ or structure following a cardiac catheterization; D62 Acute posthemorrhagic anemia; E87.1 Hypo-osmolality and hyponatremia; I34.0 Nonrheumatic mitral (valve) insufficiency; E87.6 Hypokalemia; I10 Essential (primary) hypertension; J44.9 Chronic obstructive pulmonary disease, unspecified; K21.9 Gastro-esophageal reflux disease without esophagitis; K44.9 Diaphragmatic hernia without obstruction or gangrene; N28.89 Other specified disorders of kidney and ureter; I95.9 Hypotension, unspecified; E78.5 Hyperlipidemia, unspecified
CPT/HCPCS: 36415; 71045; 71275; 76775; 80048; 80053; 80061; 82150; 83690; 83735; 83874; 83880; 84443; 84484; 85007; 85025; 85027; 85379; 85610; 85730; 86850; 86900; 86901; 86920; 93005; 93041; 93306; 93458; 93567; 93926; 94640; 96361; 96372; 96374; 96375; 96376

== ENCOUNTER 2017-10-17 19:55 | Outpatient (CLI) | payer MEDICARE ==
[~2017-10-17 19:55] MED LIST changes: +AMLO5TAB2 PO; +ASPI-999 PO; +ATOR40TA PO; +METO-395 PO; +PHEN30SP4 NSEACH; +RT-ALBUINH IH
== END 2017-10-18 06:06 | disposition home or self-care (01) ==
LOC: SLEEP 19:55
PROVIDERS: ATTEND Nurse Practitioner Family
DX: G47.33 Obstructive sleep apnea (adult) (pediatric) (principal); J44.9 Chronic obstructive pulmonary disease, unspecified
CPT/HCPCS: 95811

== ENCOUNTER → 2017-12-07 | Outpatient (CLI) | payer MEDICARE ==
[~2017-12-07] MED LIST changes: -AMLO10TA2 PO; +AMLO10TA6 PO; -AMLO5TAB2 PO; +AMLO5TAB7 PO
== END ==
LOC: LAB 14:14
PROVIDERS: ATTEND Physician Assistant
DX: I25.10 Atherosclerotic heart disease of native coronary artery without angina pectoris (principal); I10 Essential (primary) hypertension
CPT/HCPCS: 36415; 81225

== ENCOUNTER 2018-06-03 14:00 | Outpatient (RCR) | payer MEDICARE ==
[2018-03-15 13:10] VITALS: BP 130/60
--- NOTE | 2018-03-15 14:02 | Pulmonary Rehab Eval/Txmt Plan ---
Pulmonary Rehab Treatment Plan Treatment P Treatment Periord: Initial Diagnosis Diagnosis: J44.9-COPD Date: Mar 15, 2018 Barriers to Learning Barriers: None Assessment/Problems Exercise: Deconditioning, Decreased Exer Tolerance, No Regular Exercise Type: AEROBIC Frequency: 2 X PER WEEK Duration: 1 HR CLASS, EXERCISE PER PT'S TOLERANCE Barriers to Exercise: NONE Initial MET Level: 2 Aerobic Exercise/Goals Freq: time per week minus HI: 2 MET Level=: 2 Type: Arm Ergometry, Bike, Scifi/Nustep, Treadmill JESSICA BURNS DO Mar 15, 2018 14:02
[2018-04-20 14:00] VITALS: BP_SYST 130; BP_SYST 140; BP_DIAS 48; BP_DIAS 50
[2018-04-22 14:00] VITALS: BP 120/50
[2018-04-22 14:52] VITALS: BP 150/60
[2018-04-27 14:00] VITALS: BP 129/70
[2018-04-27 15:00] VITALS: BP 122/50
[2018-04-29 14:00] VITALS: BP 74/95
[2018-05-04 14:00] VITALS: BP 123/60
[2018-05-04 15:00] VITALS: BP 118/50
[2018-05-11 13:50] VITALS: BP 110/50
[2018-05-11 14:50] VITALS: BP 130/60
[2018-05-13 14:00] VITALS: BP 120/50
[2018-05-13 15:00] VITALS: BP 120/60
[2018-05-18 13:55] VITALS: BP 115/50
[2018-05-18 14:35] VITALS: BP 108/52
[2018-05-20 13:50] VITALS: BP 130/60
[2018-05-20 14:53] VITALS: BP 118/60
[2018-05-25 13:55] VITALS: BP 132/60
[2018-05-25 14:48] VITALS: BP 100/50
[2018-05-27 14:03] VITALS: BP 130/50
[2018-05-27 14:55] VITALS: BP 110/50
[2018-06-01 14:00] VITALS: BP 128/68
[2018-06-01 15:00] VITALS: BP 130/60
[~2018-06-03] VITALS: Ht 157.5 cm; Wt 59.9 kg
[2018-06-03 14:00] VITALS: BP 120/60
[2018-06-03 15:00] VITALS: BP 120/56
[2018-06-10 13:55] VITALS: BP 127/50
[2018-06-10 14:58] VITALS: BP 120/60
[2018-06-15 14:00] VITALS: BP 140/40
[2018-06-15 14:38] VITALS: BP 110/60
== END 2018-06-13 | disposition home or self-care (01) ==
LOC: PULM 14:00
PROVIDERS: ATTEND Nurse Practitioner Family
DX: G47.33 Obstructive sleep apnea (adult) (pediatric) (principal); J30.9 Allergic rhinitis, unspecified; R05 Cough; R06.00 Dyspnea, unspecified; J44.9 Chronic obstructive pulmonary disease, unspecified

== ENCOUNTER → 2018-06-03 | Outpatient (CLI) | payer MEDICARE ==
[~2018-06-03] MED LIST changes: -AMLO10TA6 PO; +AMLO10TA7 PO; -AMLO5TAB7 PO; +AMLO5TAB9 PO
== END ==
LOC: SLEEP 19:44
PROVIDERS: ATTEND Nurse Practitioner Family
DX: G47.33 Obstructive sleep apnea (adult) (pediatric) (principal); G47.10 Hypersomnia, unspecified; R06.00 Dyspnea, unspecified

== ENCOUNTER → 2018-06-22 | Outpatient (CLI) | payer MEDICARE ==
--- NOTE | 2018-06-22 18:00 | Diagnostic Imaging Report ---
INDICATION: Routine screening. COMPARISON is made with prior mammograms from 06/15/2017 and 06/12/2016. TECHNIQUE: 2-D and 3-D bilateral screening mammography was performed with CAD. FINDINGS: Scattered fibroglandular densities are identified bilaterally. The parenchymal pattern is stable. There are benign calcifications bilaterally. No mass or malignant appearing microcalcifications are seen. The axillae are unremarkable. IMPRESSION: BI-RADS category 2. No mammographic features suspicious for malignancy are identified. ACR BI-RADS Category 2: Benign findings. Result letter will be mailed to the patient. Note: At least 10% of breast cancer is not imaged by mammography. Dictated by: Dictated on workstation # [id number]
== END ==
LOC: RAD 12:43
PROVIDERS: ATTEND Nurse Practitioner Family
DX: Z12.31 Encounter for screening mammogram for malignant neoplasm of breast (principal)
CPT/HCPCS: 77067

== ENCOUNTER → 2019-05-09 | Outpatient (CLI) | payer MEDICARE ==
[~2019-05-09] VITALS: Ht 157 cm; Wt 60.0 kg
[~2019-05-09] MED LIST changes: +ASCO-413 PO; -ASCO500T5 PO; +CATHETER FLUSH 10 ML SYR IV PRN; +CYAN-41 PO; -CYAN10006 PO; -IBUP-2055 PO; +IBUP-2473 PO; -METO-395 PO; +MTP100TCR PO; +OMEP-280 PO; -OMEP20CA12 PO; +REGADENOSON 0.4 MG/5 ML SYR (LEXISCAN) IV ONE
[2019-05-09 09:42] VITALS: BP 216/73
[2019-05-09 09:50] VITALS: BP 177/65
--- NOTE | 2019-05-09 16:49 | STRESS TEST ---
DATE OF SERVICE: 05/09/2019 LEXISCAN MYOVIEW STRESS TEST REPORT REFERRING PHYSICIAN: Dr. Ruthie Mendez. Baseline heart rate is 71. Baseline blood pressure 216/73. Baseline EKG sinus rhythm with no ischemic changes. In summary, the patient was injected with 9.74 mCi of technetium-99 Myoview and the resting images were obtained. Then, the patient received 0.4 mg of Lexiscan followed by 30.4 mCi of technetium-99 Myoview. Throughout the test, there were no EKG changes. The resting and stress images were reviewed and compared in the short axis, horizontal long axis, and vertical long axis views. Review of the images showed good radiotracer uptake with no significant ischemia or infarction. SSS is 1, SDS 1. TID value 1.04. On the gated images, the left ventricle appeared to be in normal size with normal contractility. Calculated ejection fraction 83%. CONCLUSION: 1. The patient tolerated Lexiscan well. 2. No ischemia or infarction on SPECT images. 3. Normal left ventricular size with normal contractility. Calculated ejection fraction 83%. 4. Baseline hypertension persisted throughout test. Job ID: [id number] DocumentID: [id number] Dictated Date: 05/09/2019 12:21:24 Manganese Wheeler Date: 05/09/2019 16:48:30 Dictated By: LULU ARROYO MD
== END ==
LOC: CARD 08:25
PROVIDERS: ATTEND Physician Assistant
DX: I25.10 Atherosclerotic heart disease of native coronary artery without angina pectoris (principal); I65.29 Occlusion and stenosis of unspecified carotid artery; J44.9 Chronic obstructive pulmonary disease, unspecified; I10 Essential (primary) hypertension
CPT/HCPCS: 78452; 93017

== ENCOUNTER → 2019-08-15 | Outpatient (CLI) | payer MEDICARE ==
[~2019-08-15] MED LIST changes: -ASCO-413 PO; +ASCO500T71 PO; -CATHETER FLUSH 10 ML SYR IV PRN; -OMEP-280 PO; +OMEP20CA18 PO; -REGADENOSON 0.4 MG/5 ML SYR (LEXISCAN) IV ONE
--- NOTE | 2019-08-15 18:05 | Diagnostic Imaging Report ---
INDICATION: Routine screening. COMPARISON is made with prior mammograms from 06/22/2018 and 06/15/2017. 2-D and 3-D bilateral screening mammography was performed with CAD. Both breasts remain heterogeneously dense, limiting the sensitivity of mammography. Occasional benign calcifications are noted bilaterally. No mass or malignant appearing microcalcifications are seen. Axillae are unremarkable. IMPRESSION: BI-RADS Category 2 No mammographic features suspicious for malignancy are identified. ACR BI-RADS Category 2: Benign findings. Result letter will be mailed to the patient. Note: At least 10% of breast cancer is not imaged by mammography. Dictated by: Dictated on workstation # [id number]
== END ==
LOC: RAD 14:31
PROVIDERS: ATTEND Nurse Practitioner Family
DX: Z12.31 Encounter for screening mammogram for malignant neoplasm of breast (principal)
CPT/HCPCS: 77063; 77067

== ENCOUNTER → 2020-06-11 | Outpatient (CLI) | payer MEDICARE ==
[~2020-06-11] MED LIST changes: +ALPR.25T PO; -ALPR0.254 PO; +AMLO-250 PO; +AMLO-251 PO; -AMLO10TA7 PO; -AMLO5TAB9 PO; +ASPI-1238 PO; -ASPI-983 PO; -ISOS30TA3 PO; +ISOS30TA82 PO; -LISI-552 PO; +LISI20TA26 PO
--- NOTE | 2020-06-11 16:19 | Diagnostic Imaging Report ---
INDICATION: Dyspnea. COMPARISON: 10/11/2017. TECHNIQUE: PA and lateral views were obtained. FINDINGS: The heart size, mediastinal configuration, and pulmonary vascularity are within normal limits. There is no pleural effusion, pneumothorax, or pneumonia. The osseous structures are unremarkable. IMPRESSION: No acute cardiopulmonary abnormality. Dictated by: Dictated on workstation # [id number]
== END ==
LOC: RAD 13:24
PROVIDERS: ATTEND Nurse Practitioner Family
DX: R06.00 Dyspnea, unspecified (principal)
CPT/HCPCS: 71046

== ENCOUNTER → 2020-08-31 | Outpatient (CLI) | payer MEDICARE ==
--- NOTE | 2020-09-04 11:20 | Diagnostic Imaging Report ---
EXAMINATION: Digital mammogram bilateral screening with CAD. INDICATION: Screening. COMPARISON: This study was compared to the prior exams of 08/15/2019, 06/22/2018, and 06/15/2017. PERSONAL HISTORY: At this time, there are no current complaints. FINDINGS: The fibroglandular tissue in both breasts is heterogeneously dense. This does limit the sensitivity of this exam. Overall, there does not appear to have been any significant change when compared to the prior study. No primary or secondary sign of malignancy is noted. IMPRESSION: There is no radiographic evidence for malignancy. ACR BI-RADS Category 1: Negative. Result letter will be mailed to the patient. Note: At least 10% of breast cancer is not imaged by mammography. Dictated on workstation # [id number]
== END ==
LOC: RAD 14:45
PROVIDERS: ATTEND Family Medicine
DX: Z12.31 Encounter for screening mammogram for malignant neoplasm of breast (principal)
CPT/HCPCS: 77063; 77067

== ENCOUNTER → 2020-09-19 | Outpatient (CLI) | payer MEDICARE ==
[~2020-09-19] MED LIST changes: +CATHETER FLUSH 10 ML SYR IV PRN; +REGADENOSON 0.4 MG/5 ML SYR (LEXISCAN) IV ONE
[2020-09-19 09:12] VITALS: BP 203/85
--- NOTE | 2020-09-19 17:28 | STRESS TEST ---
DATE OF SERVICE: 09/19/2020 LEXISCAN MYOVIEW STRESS TEST REFERRING PHYSICIAN: Dr. Mendez. Baseline heart rate is 65, baseline blood pressure 203/85. Baseline EKG is sinus rhythm with no ischemic changes. In summary, the patient was injected with 10.69 mCi of technetium-99 Myoview and the resting images were obtained. Then, the patient received 0.4 mg of Lexiscan followed by 30.3 mCi of technetium-99 Myoview. Throughout the test, there were no EKG changes. The resting and stress images were reviewed and compared in the short axis, horizontal long axis, and vertical long axis views. Review of the images showed good radiotracer uptake with no significant ischemia or infarction. SSS is 3, SDS 3, TID value 0.99. On the gated images, the left ventricle appeared to be normal size with normal contractility. Calculated ejection fraction 83%. CONCLUSION: 1. The patient tolerated Lexiscan well. 2. No significant ischemia or infarction on SPECT images. 3. Normal left ventricular size, ejection fraction 83%. Job ID: [id number] DocumentID: [id number] Dictated Date: 09/19/2020 15:53:07 Machine Tester Date: 09/19/2020 17:27:57 Dictated By: LULU ARROYO MD
== END ==
LOC: CARD 07:30
PROVIDERS: ATTEND Physician Assistant
DX: R07.9 Chest pain, unspecified (principal)
CPT/HCPCS: 78452; 93017; A9502

== ENCOUNTER → 2021-09-04 | Outpatient (CLI) | payer MEDICARE ==
[~2021-09-04] MED LIST changes: -CATHETER FLUSH 10 ML SYR IV PRN; +OMEP20TA56 PO; -OMEP20TA7 PO; -REGADENOSON 0.4 MG/5 ML SYR (LEXISCAN) IV ONE
--- NOTE | 2021-09-04 11:32 | Diagnostic Imaging Report ---
INDICATION: Routine screening. COMPARISON: 08/31/2020 and 08/15/2019. TECHNIQUE: 2D and 3D bilateral screening mammography was performed with CAD. FINDINGS: Scattered fibroglandular densities are identified bilaterally. The parenchymal pattern is stable. No mass or malignant-appearing microcalcifications are seen. There are benign calcifications present. The axillae are unremarkable. IMPRESSION: No mammographic features suspicious for malignancy are identified. ACR BI-RADS Category 2: Benign findings. Result letter will be mailed to the patient. Note: At least 10% of breast cancer is not imaged by mammography. Dictated by: Dictated on workstation # [id number]
== END ==
LOC: RAD 10:15
PROVIDERS: ATTEND Family Medicine
DX: Z12.31 Encounter for screening mammogram for malignant neoplasm of breast (principal)
CPT/HCPCS: 77063; 77067

== ENCOUNTER → 2021-09-24 | Outpatient (CLI) | payer MEDICARE | LOC: CARD 13:00 | PROVIDERS: ATTEND Internal Medicine Cardiovascular Disease | DX: I34.0 Nonrheumatic mitral (valve) insufficiency (principal); I25.10 Atherosclerotic heart disease of native coronary artery without angina pectoris; I10 Essential (primary) hypertension | CPT/HCPCS: 93306 ==

== ENCOUNTER → 2022-01-11 | Outpatient (CLI) | payer MEDICARE ==
--- NOTE | 2022-01-11 16:44 | Diagnostic Imaging Report ---
PROCEDURE: CT head without contrast. TECHNIQUE: Multiple contiguous axial images were obtained through the brain without the use of intravenous contrast. Auto Exposure Controls were utilized during the CT exam to meet ALARA standards for radiation dose reduction. INDICATION: Fall. Trauma. Head injury. Anticoagulation therapy. COMPARISON: CT head without contrast 06/27/2016. FINDINGS: Moderate generalized parenchymal volume loss. No intracranial hemorrhage, mass effect, hydrocephalus or extra-axial fluid collection. No CT evidence of a territorial infarction. Scalp contusion overlying the left parietal convexity. No fracture. Small air-fluid level in the partially visualized left maxillary sinus. The mastoids are clear. IMPRESSION: 1. Scalp contusion overlying the left parietal convexity. No fracture. 2. No acute intracranial CT finding. Dictated by: Dictated on workstation # [id number]
== END ==
LOC: RAD 16:25
PROVIDERS: ATTEND Nurse Practitioner Family
DX: S00.83XA Contusion of other part of head, initial encounter (principal); W19.XXXA Unspecified fall, initial encounter
CPT/HCPCS: 70450

== ENCOUNTER 2022-05-11 07:15 | Emergency (ER) | payer MEDICARE ==
[~2022-05-11] VITALS: Ht 160 cm; Wt 60.7 kg
--- NOTE | 2022-05-11 07:33 | ED Syncope ---
General Chief Complaint: Dizziness/Syncope Stated Complaint: DIZZINESS Nursing Triage Note: PT BROUGHT IN BY [facility] FROM HOME WITH COMPLAINT DIZZINESS AND FELL ON THE FLOOR. STATES SHE HIT THE LEFT SIDE OF HER HEAD. COMPLAINING OF UPPER BACK PAIN. Source of Information: Patient, EMS Exam Limitations: No Limitations History of Present Illness Date Seen by Provider: May 11, 2022 Time Seen by Provider: 07:21 Initial Comments Patient is an 86-year-old female who lives at home with her presents to the emergency department after syncopal episode this morning. Patient states that she felt a little "sick-matheus" going to bed last night, woke up feeling the same this morning. She went out to her garage to get a Sprite, came back in and started feeling worse. She leaned over her counter and the next thing she knew she was on the floor. She does think that she had a loss of consciousness. She hit her head on a cabinet on the way down. She denies being on blood thinners other than baby aspirin daily. She still feels a little nauseous. She has some midthoracic back pain. Denies any numbness, tingling or weakness in her lower extremities. No incontinence. 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 She also went to a rather large a week ago and subsequently found out that her daughter's had COVID. They did have close contact with him. Ansley states that she is COVID vaccinated with 2 boosters. She has had a mild cough during the last week. Timing/Prior Episodes: Other (occasional episodes) Symptoms Prior to Episode: Lightheadedness, Nausea Precipitating Factors: Standing Loss of Consciousness: Brief (Seconds) Current Symptoms: Nausea, Other (Back pain) Allergies and Home Medications Allergies Coded Allergies: Sulfa (Sulfonamide Antibiotics) (Verified Allergy, Unknown, 03/10/06) amoxicillin (Verified Allergy, Unknown, 03/10/06) ciprofloxacin (Verified Allergy, Unknown, 01/02/16) gluten (Verified Allergy, Unknown, 01/02/16) iodamide meglumine (Verified Allergy, Unknown, 03/10/06) lactose (Verified Adverse Reaction, Mild, Diarrhea, 02/17/16) Uncoded Allergies: CONTRAST DYE (Allergy, Unknown, 12/19/13) Patient Home Medication List Home Medication List Reviewed: Yes ALPRAZolam (Xanax Tablet) 0.25 Mg Tablet, 0.0625 MG PO QIDACHS, (Reported) Entered as Reported by: MARCIAL RICKETTS on 02/18/16 1008 Albuterol Sulfate (Ventolin Hfa) 1 Puff Puff, 2 PUFF IH Q4H PRN for SHORTNESS OF BREATH, (Reported) Entered as Reported by: RANDY KUMAR on 10/11/17 1630 Amlodipine Besylate (Amlodipine Besylate) 10 Mg Tablet, 10 MG PO DAILY Prescribed by: JA MENDEZ on 10/13/17 09 Aspirin (Aspirin) 81 Mg Tab.chew, 81 MG PO DAILY Prescribed by: JA MENDEZ on 10/13/17918 Atorvastatin Calcium (Lipitor) 40 Mg Tablet, 80 MG PO HS Prescribed by: JA MENDEZ on 10/13/17918 Cholecalciferol (Vitamin D3) (Vitamin D3) 5,000 Unit Capsule, 5,000 UNIT PO DAILY, (Reported) Entered as Reported by: MARCIAL RICKETTS on 02/18/16 1008 Clopidogrel Bisulfate (Clopidogrel) 75 Mg Tablet, 75 MG PO DAILY, (Reported) Entered as Reported by: FLORIAN AL on 02/17/16 0015 Cyanocobalamin (Vitamin B-12) (Vitamin B-12) 1,000 Mcg Tablet, 1,000 MCG PO DAILY, (Reported) Entered as Reported by: MINERVA TEMPLE on 01/01/16 1115 Famotidine (Famotidine) 20 Mg Tablet, 20 MG PO BID PRN for acid reflux, (Reported) Entered as Reported by: MARCIAL RICKETTS on 02/18/16 1008 Fluticasone Propionate (Flovent Hfa 110 mcg) 1 Ea Aero, 2 PUFF IH BID, (Reported) Entered as Reported by: MARCIAL RICKETTS on 02/18/16 1008 Lactobacillus Combo No.6 (Probiotic Complex) 1 Each Tablet, 1 CAP PO DAILY, (Reported) Entered as Reported by: MEL BABCOCK on 01/21/12 1528 Metoprolol Succinate (Metoprolol Succinate) 100 Mg Tab.er.24h, 100 MG PO DAILY Prescribed by: AJ MENDEZ on 10/13/17 09 Oxycodone HCl (Oxycodone HCl) 5 Mg Tablet, 2.5 MG PO Q6H PRN for PAIN-MODERATE (5-7) Prescribed by: CAIO RESENDEZ on 05/11/22 1207 Phenylephrine HCl (Nasal [place]) 30 Ml [place], 1 SPRAY NSEACH TID PRN for Allergies, (Reported) Entered as Reported by: RANDY KUMAR on 10/11/17 1630 Discontinued Medications Oxycodone HCl (Oxycodone HCl) 5 Mg Tablet, 2.5 MG PO Q6H PRN for PAIN-MODERATE TO SEVERE Prescribed by: CAIO RESENDEZ on 05/11/22 1201 Review of Systems Constitutional: see HPI EENTM: other (Left posterior parietal occipital pain) Respiratory: cough Cardiovascular: no symptoms reported Gastrointestinal: nausea Genitourinary: no symptoms reported Musculoskeletal: back pain Skin: no symptoms reported All Other Systems Reviewed Negative Unless Noted: Yes Past Iypegxn-Kyxdhm-Ohqqgm Hx Patient Social History Tobacco Use?: No Use of E-Cig and/or Vaping dev: No Substance use?: No Alcohol Use?: No Pt feels they are or have been: No Immunizations Up To Date Tetanus Booster (TDap): More than 5yrs Seasonal Allergies Seasonal Allergies: No Past Medical History Surgeries: Yes (Hemorrhoids, benign bladder tumor, neck vertebra fusion, left cataraact) Hysterectomy Respiratory: Yes Sleep Apnea, COPD Currently Using CPAP: No Currently Using BIPAP: No Cardiac: Yes (cardiac cath "years ago" by dr ramos, pt unsure of year) Hypertension Neurological: No Reproductive Disorders: No Female 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 Sexually Transmitted Disease: No HIV/AIDS: No Genitourinary: Yes (bladder tumor removed) Bladder Infection Gastrointestinal: Yes Gastroesophageal Reflux, Hiatal Hernia Musculoskeletal: Yes (Hx hammertoe surgery) Arthritis Endocrine: No HEENT: Yes Cataract Loss of Vision: Denies Hearing Impairment: Denies Cancer: No Psychosocial: Yes Anxiety Integumentary: No Blood Disorders: No Adverse Reaction/Blood Tranf: No Family Medical History Parkinson's disease G8 BROTHER Heart Disease, Other Conditions/Hx Physical Exam Vital Signs Vital Signs - First Documented 05/11/22 07:17 Temp 36.7 Pulse 71 Resp 16 B/P (MAP) 167/126 (140) Pulse Ox 93 O2 Delivery Room Air Capillary Refill : Less Than 3 Seconds Height, Weight, BMI Height: 5'2.00" Weight: 131lbs. 4.0oz. [id number]; 23.00 BMI Method:Stated General Appearance: No Apparent Distress, WD/WN HEENT: PERRL/EOMI, Pharynx Normal Neck: Full Range of Motion, Non Tender Cardiovascular: Systolic Murmur, Irregularly Irregular Respiratory: Lungs Clear, Normal Breath Sounds, No Accessory Muscle Use, No Respiratory Distress Gastrointestinal: Normal Bowel Sounds, Non Tender, Soft Back: Vertebral Tenderness (T7-T10) Extremities: Normal Inspection, Normal Range of Motion Neurologic/Psychiatric: Alert, Oriented x3, No Motor/Sensory Deficits, Normal Mood/Affect, signals officer II-XII Norm as Tested Cranial Nerves: Normal Hearing, Normal Speech, PERRL Motor/Sensory: No Motor Deficit, No Sensory Deficit Skin: Normal Color, Warm/Dry Progress/Results/Core Measures Results/Orders Lab Results Laboratory Tests Test 05/11/22 07:25 05/11/22 07:36 05/11/22 11:21 Range/Units White Blood Count 15.7 H 4.3-11.0 10^3/uL Red Blood Count 4.12 3.80-5.11 10^6/uL Hemoglobin 12.8 11.5-16.0 g/dL Hematocrit 39 35-52 % Mean Corpuscular Volume 95 80-99 fL Mean Corpuscular Hemoglobin 31 25-34 pg Mean Corpuscular Hemoglobin Concent 33 32-36 g/dL Red Cell Distribution Width 14.1 10.0-14.5 % Platelet Count 218 130-400 10^3/uL Mean Platelet Volume 10.5 9.0-12.2 fL Immature Granulocyte % (Auto) 1 % Neutrophils (%) (Auto) 83 H 42-75 % Lymphocytes (%) (Auto) 10 L 12-44 % Monocytes (%) (Auto) 5 0-12 % Eosinophils (%) (Auto) 1 0-10 % Basophils (%) (Auto) 0 0-10 % Neutrophils # (Auto) 13.0 H 1.8-7.8 10^3/uL Lymphocytes # (Auto) 1.5 1.0-4.0 10^3/uL Monocytes # (Auto) 0.8 0.0-1.0 10^3/uL Eosinophils # (Auto) 0.1 0.0-0.3 10^3/uL Basophils # (Auto) 0.0 0.0-0.1 10^3/uL Immature Granulocyte # (Auto) 0.1 0.0-0.1 10^3/uL Neutrophils % (Manual) 74 % Lymphocytes % (Manual) 15 % Monocytes % (Manual) 3 % Eosinophils % (Manual) 1 % Basophils % (Manual) 1 % Band Neutrophils 6 % Blood Morphology Comment NORMAL Sodium Level 137 135-145 MMOL/L Potassium Level 3.9 3.6-5.0 MMOL/L Chloride Level 101 98-107 MMOL/L Carbon Dioxide Level 24 21-32 MMOL/L Anion Gap 12 5-14 MMOL/L Blood Urea Nitrogen 11 7-18 MG/DL Creatinine 0.80 0.60-1.30 MG/DL Estimat Glomerular Filtration Rate 71 BUN/Creatinine Ratio 14 Glucose Level 125 H 70-105 MG/DL Calcium Level 9.2 8.5-10.1 MG/DL Troponin I < 0.028 <0.028 NG/ML Influenza Type A (RT-PCR) Not Detected Not Detecte Influenza Type B (RT-PCR) Not Detected Not Detecte SARS-CoV-2 RNA (RT-PCR) Not Detected Not Detecte Urine Color YELLOW Urine Clarity CLEAR Urine pH 8.5 5-9 Urine Specific [place] 1.015 L 1.016-1.022 Urine Protein NEGATIVE NEGATIVE Urine Glucose (UA) NEGATIVE NEGATIVE Urine Ketones NEGATIVE NEGATIVE Urine Nitrite NEGATIVE NEGATIVE Urine Bilirubin NEGATIVE NEGATIVE Urine Urobilinogen 0.2 < = 1.0 MG/DL Urine Leukocyte Esterase 1+ H NEGATIVE Urine RBC (Auto) NEGATIVE NEGATIVE Urine RBC NONE /HPF Urine WBC 2-5 /HPF Urine Squamous Epithelial Cells 2-5 /HPF Urine Crystals NONE /LPF Urine Bacteria TRACE /HPF Urine Casts NONE /LPF Urine Mucus NEGATIVE /LPF Urine Culture Indicated NO My Orders Orders - CAIO RESENDEZ MD Ed Iv/Invasive Line Start (05/11/22 07:30) Cbc With Automated Diff (05/11/22 07:30) Basic Metabolic Panel (05/11/22 07:30) Ekg Tracing (05/11/22 07:30) Troponin I [place] (05/11/22 07:30) Chest 1 View, Ap/Pa Only (05/11/22 07:30) Covid 19 Inhouse Test (05/11/22 07:30) Influenza A And B By Pcr (05/11/22 07:30) Isolation Central Supply Req (05/11/22 07:30) Ct Thoracic/Lumbar Spine Wo (05/11/22 07:33) Ondansetron Injection (Zofran Injectio (05/11/22 07:45) Manual Differential (05/11/22 07:25) Fentanyl Inj (Sublimaze Injection) (05/11/22 08:00) Ua Culture If Indicated (05/11/22 11:18) Medications Given in ED Current Medications Medications Dose Ordered Sig/Haider Route Start Time Stop Time Status Last Admin Dose Admin Fentanyl Citrate 25 mcg ONCE ONCE IVP 05/11/22 08:00 05/11/22 08:01 DC 05/11/22 09:18 25 MCG Ondansetron HCl 4 mg ONCE ONCE IVP 05/11/22 07:45 05/11/22 07:46 DC 05/11/22 07:51 4 MG Vital Signs/I&O 05/11/22 07:17 Temp 36.7 Pulse 71 Resp 16 B/P (MAP) 167/126 (140) Pulse Ox 93 O2 Delivery Room Air Blood Pressure Mean: 140 Progress Progress Note : Time: 12:01 Progress Note Patient seen and examined by me, 86-year-old female with a syncopal episode. Patient evaluation today includes basic labs such as CBC, chemistry, urinalysis, flu and COVID testing, CT scan of the thoracic and lumbar spine as well as single view chest x-ray. Differential diagnosis based on history and physical, COVID, viral syndrome, urinary tract infection. Based on laboratory studies, CBC with slightly increased white blood cell count of 15,000, normal chemistry, negative flu and COVID, negative chest x-ray, neg Urine, suspect Viral Syndrome as the etiology of her malaise and nausea. She has point tenderness over the thoracic spine and CT scan of the thoracic and lumbar spine does demonstrate a 25% vertebral body height loss at T12. Mild retropulsion of fragments. I did discuss the case with neurosurgery (Dr Cloud) at [facility] in [place]. They recommended an LSO brace (to be worn only while up and walking) and follow-up in 1 month. I did recommend to the patient that she follow-up with Dr. Mendez tomorrow as they may be able to arrange follow-up at [facility] in [place]. She has no complaints that are concerning for arrhythmia or neurologic insult that would account for her syncopal episode. She states she did have antecedent symptoms of feeling like she was going to have a syncopal event. She knew that she needed to sit down but could not. She has no focal neurodeficits related to her spinal compression fracture. She is comfortable with discharge to home. We will send some oxycodone 5 mg tablets and recommend half a tablet every 6 hours as needed for severe pain. Pain medication precautions reviewed. She verbalized understanding. All questions a re sought and answered. Initial ECG Impression Date: May 11, 2022 Initial ECG Impression Time: 07:32 Initial ECG Rate: 73 Initial ECG Rhythm: Normal Sinus Initial ECG Intervals: Normal Initial ECG Impression: Normal Diagnostic Imaging Diagonstic Imaging: Xray Plain Films/CT/US/NM/MRI: chest Comments Chest xray - interpreted by me - no acute findings Diagonstic Imaging: CT Comments T/L Spine CT - per [facility] Acute compression fracture of T12 with 25% vertebral body height loss, mild as sociated bony retropulsion causing mild canal narrowing Departure Impression Primary Impression: Syncope Qualified Codes: R55 - Syncope and collapse Additional Impressions: T12 compression fracture Qualified Codes: S22.080A - Wedge compression fracture of T11-T12 vertebra, initial encounter for closed fracture Viral syndrome Disposition: 01 HOME, SELF-CARE Condition: Stable Departure-Patient Inst. Decision time for Depature: 11:58 Referrals: JA MENDEZ MD (PCP/Family) Primary Care Physician Patient Instructions: Vertebral Compression Fracture ED, Syncope (Fainting) Add. Discharge Instructions: Call Dr. Mendez's office tomorrow for a follow-up appointment this week. She can talk to you about follow-up, possibly with [facility] in [place], [place]. Wear the lumbar support brace while you are up and walking and moving around. You do not need to wear it while sleeping. You can continue to take extra strength Tylenol every 6 hours as needed for pain. I have also prescribed you oxycodone 5 mg tablets. Start out with 1/2 tablet every 6 hours as needed for more intense pain. The oxycodone can cause constipation, you should be on a stool softener daily while taking this medication. It can also make you a little sleepy and more pr one to falls. Please be very careful after taking this medication. Return to the emergency department for any severe pain especially with leg weakness or numbness or loss of bowel or bladder function. Scripts Oxycodone HCl (Oxycodone HCl) 5 Mg Tablet 2.5 MG PO Q6H PRN for PAIN-MODERATE (5-7), #12 TAB Prov: CAIO RESENDEZ MD 05/11/22 Copy Copies To 1: JA MENDEZ MD, KATHRYN M MD May 11, 2022 07:33
[2022-05-11 07:40] LABS: BASOPHILS % (AUTO) 0 % (0-10); EOSINOPHILS # (AUTO) 0.1 10^3/uL (0.0-0.3); EOSINOPHILS % (AUTO) 1 % (0-10); HEMATOCRIT 39 % (35-52); HEMOGLOBIN 12.8 g/dL (11.5-16.0); LYMPHOCYTES # (AUTO) 1.5 10^3/uL (1.0-4.0); LYMPHOCYTES % (AUTO) 10 % (12-44); MEAN CORPUSCULAR HEMOGLOBIN 31 pg (25-34); MEAN CORPUSCULAR HGB CONC 33 g/dL (32-36); MEAN CORPUSCULAR VOLUME 95 fL (80-99); MEAN PLATELET VOLUME 10.5 fL (9.0-12.2); MONOCYTES # (AUTO) 0.8 10^3/uL (0.0-1.0); MONOCYTES % (AUTO) 5 % (0-12); NEUTROPHILS % (AUTO) 83 % (42-75); PLATELET COUNT 218 10^3/uL (130-400); WHITE BLOOD COUNT 15.7 10^3/uL (4.3-11.0)
[2022-05-11 07:42] LABS: CHLORIDE 101 MMOL/L (98-107); POTASSIUM 3.9 MMOL/L (3.6-5.0); SODIUM 137 MMOL/L (135-145)
[2022-05-11 07:43] LABS: CALCIUM 9.2 MG/DL (8.5-10.1); GLUCOSE 125 MG/DL (70-105)
[2022-05-11 07:45] LABS: CARBON DIOXIDE 24 MMOL/L (21-32)
[2022-05-11] MEDS ORDERED: ONDANSETRON 4 MG/2 ML (SDV) Z0FRAN IVP ONE (07:45)
[2022-05-11 07:47] LABS: GFR ESTIMATED 71
[2022-05-11 07:48] LABS: BUN/CREATININE RATIO 14
[2022-05-11] MEDS ORDERED: fentaNYL INJ 100 MCG/2 ML AMP IVP ONE (08:00)
[2022-05-11 08:27] LABS: BAND NEUTROPHILS 6 %; BASOPHILS % (MANUAL) 1 %; EOSINOPHILS % (MANUAL) 1 %; LYMPHOCYTES % (MANUAL) 15 %; MONOCYTES % (MANUAL) 3 %; NEUTROPHILS % (MANUAL) 74 %; RBC MORPH NORMAL
[2022-05-11 11:33] LABS: BILIRUBIN,URINE NEGATIVE (NEGATIVE); CLARITY,URINE CLEAR; COLOR,URINE YELLOW; GLUCOSE, URINE (UA) NEGATIVE (NEGATIVE); KETONES,URINE NEGATIVE (NEGATIVE); LEUKOCYTE ESTERASE ,URINE 1+ (NEGATIVE); NITRITE,URINE NEGATIVE (NEGATIVE); PH,URINE 8.5 (5-9); PROTEIN,URINE NEGATIVE (NEGATIVE)
[2022-05-11 11:42] LABS: BACTERIA,URINE TRACE /HPF
[2022-05-11] MEDS ORDERED: OXYC5TAB PO ×2 (12:00→12:07)
[2022-05-11 12:27] VITALS: BP 145/86
--- NOTE | 2022-05-12 13:59 | Diagnostic Imaging Report ---
PROCEDURE: CT thoracic and lumbar spine without contrast. TECHNIQUE: Multiple contiguous axial images were obtained through the thoracic and lumbar spine without the use of intravenous contrast. Sagittal and coronal reformations were then performed. All CT scans use one or more of the following dose optimizing techniques: automated exposure control, MA and/or KvP adjustment based on a patient size and exam type, or iterative reconstruction. INDICATION: Back pain after fall. COMPARISON: None Findings: Included views of the chest demonstrates retained secretions within the mid trachea. Bibasilar airspace opacities in the visualized lung. Acute compression fracture of T12 with 25% height loss. Mild associated bony retropulsion causing mild spinal canal narrowing. No other compression fracture identified. Multilevel degenerative changes within the thoracic and lumbar spine. No high-grade spinal canal or neural foraminal stenosis. Mild anterolisthesis of L4 and L5 at L5 on S1. Chronic bilateral pars defects of L5. The lumbar lordosis and thoracic alignment are otherwise maintained. Included views of the abdomen and pelvis demonstrates a small partially imaged left renal cyst. Calcified aortic atherosclerosis. IMPRESSION: Acute compression fracture of T12 with 25% height loss. Dictated by: Dictated on workstation # [id number]
--- NOTE | 2022-05-12 13:59 | Diagnostic Imaging Report ---
CHEST 1 VIEW, AP/PA ONLY INDICATION: syncope. COMPARISON: None. FINDINGS: Lungs: Normal lung volume. No focal consolidation. Stable pulmonary vasculature. Pleura: No pleural effusion or pneumothorax. Heart and Mediastinum: Cardiomediastinal silhouette and great vessels of the thorax are stable. Osseous Structures and Soft Tissues: No acute osseous abnormality. Normal soft tissues. IMPRESSION: No acute cardiopulmonary process. Dictated by: Dictated on workstation # [id number]
== END 2022-05-11 12:27 | disposition home or self-care (01) ==
LOC: EDUNIT# 07:15 → ER 07:16
DX: S22.088A Other fracture of T11-T12 vertebra, initial encounter for closed fracture (principal); R55 Syncope and collapse; B34.9 Viral infection, unspecified; R05.9 Cough, unspecified; R51.9 Headache, unspecified; R11.0 Nausea; Z20.822 Contact with and (suspected) exposure to COVID-19; W18.30XA Fall on same level, unspecified, initial encounter; W22.8XXA Striking against or struck by other objects, initial encounter
CPT/HCPCS: 36415; 71045; 72128; 72131; 80048; 81000; 84484; 85007; 85027; 87636; 93005

== ENCOUNTER → 2022-05-21 | Outpatient (CLI) | payer MEDICARE ==
[~2022-05-21] MED LIST changes: +OXYC5TAB PO
--- NOTE | 2022-05-21 12:06 | Diagnostic Imaging Report ---
PROCEDURE: CT head without contrast. TECHNIQUE: Multiple contiguous axial images were obtained through the brain without the use of intravenous contrast. Auto Exposure Controls were utilized during the CT exam to meet ALARA standards for radiation dose reduction. INDICATION: Fell, hit head on 05/11/2022. On blood thinners. Pain. EXAMINATION: CT brain without contrast 05/21/2022 COMPARISON: 01/11/2022 FINDINGS: Chronic ischemic changes noted in a periventricular and deep white matter distribution. No superimposed acute hemorrhage or infarct appreciated. There is no mass, mass effect or midline shift. No hydrocephalus. There is partial opacification of the left maxillary sinus with mild opacification of the ethmoid air cells. Mastoid air cells demonstrate partial opacification on the left age indeterminant. IMPRESSION: 1. Chronic findings with no acute intracranial process. 2. Sinus disease as above with partial opacification of the left mastoid air cells, age indeterminate. Dictated by: Dictated on workstation # [id number]
== END ==
LOC: RAD 10:50
PROVIDERS: ATTEND Family Medicine
DX: J32.9 Chronic sinusitis, unspecified (principal); H74.8X2 Other specified disorders of left middle ear and mastoid; G44.319 Acute post-traumatic headache, not intractable
CPT/HCPCS: 70450

== ENCOUNTER → 2022-10-07 | Outpatient (CLI) | payer MEDICARE ==
--- NOTE | 2022-10-07 17:45 | Diagnostic Imaging Report ---
INDICATION: Left foot bruising and swelling. TIME OF EXAM: 1:04 p.m. FINDINGS: Three views of the left foot were obtained. Metatarsals are intact. Phalanges appear to be intact. Midfoot and hindfoot are unremarkable. No fractures are seen. IMPRESSION: No acute bony abnormality is detected. Dictated by: Dictated on workstation # [id number]
== END ==
LOC: RAD 12:55
PROVIDERS: ATTEND Physician Assistant
DX: S90.32XA Contusion of left foot, initial encounter (principal); X58.XXXA Exposure to other specified factors, initial encounter
CPT/HCPCS: 73630

== ENCOUNTER → 2022-10-24 | Outpatient (CLI) | payer MEDICARE ==
--- NOTE | 2022-10-24 15:57 | Diagnostic Imaging Report ---
Clinical indication: Patient with vertigo. Exam: Axial CT scan of the brain without IV contrast with coronal and sagittal reformatted images. Auto Exposure Controls were utilized during the CT exam to meet ALARA standards for radiation dose reduction. Comparison: Head CT without contrast dated 05/21/2022. Findings: There is no evidence of acute cerebral infarct, intracranial hemorrhage or gross mass effect. The brain parenchymal volume appears appropriate for patient's age. There is normal jiang-white matter distinction. There is no significant midline shift or herniation. There is no evidence of hydrocephalus. The basal cisterns are unremarkable. The skull, extracranial soft tissue and orbits are unremarkable. There is moderate mucosal thickening and air-fluid level involving the left maxillary sinus. There is mild mucosal thickening involving the right maxillary sinus and ethmoid sinus. Temporal bones show no significant abnormality. Impression: The patient has paranasal sinusitis with the left maxillary sinus affected the most. Otherwise, unremarkable CT scan of the brain for age. Dictated by: Dictated on workstation # [id number]
--- NOTE | 2022-10-24 17:24 | Diagnostic Imaging Report ---
PROCEDURE: CT cervical spine without contrast. TECHNIQUE: Multiple contiguous axial images were obtained through the cervical spine without the use of intravenous contrast. Sagittal and coronal reformations were then performed. Auto Exposure Controls were utilized during the CT exam to meet ALARA standards for radiation dose reduction. INDICATION: Neck pain, COMPARISON: The cervical spine on 06/27/2016. FINDINGS: Postsurgical changes from prior right hemilaminectomy from C4, C5, and C6 no acute fracture or dislocation of the cervical spine. No high-grade spinal canal or neuroforaminal stenosis. No lytic or sclerotic bone lesion. Multilevel facet arthritis. Straightening of the cervical lordosis. Mild anterolisthesis of C3-C4 and C7-T1. Bone bridging across the disc spaces at C5-C6 and C6-C7. Moderate multilevel disc height loss. Included views of the neck demonstrates no significant abnormality. The lung apices are normal. IMPRESSION: No acute fracture or dislocation of the cervical spine. No high-grade spinal canal or neural foraminal stenosis. Dictated by: Dictated on workstation # [id number]
--- NOTE | 2022-10-24 17:34 | Diagnostic Imaging Report ---
PROCEDURE: CT lumbar spine without contrast. TECHNIQUE: Multiple contiguous axial images were obtained through the lumbar spine without the use of intravenous contrast. Sagittal and coronal reformations were then performed. Auto Exposure Controls were utilized during the CT exam to meet ALARA standards for radiation dose reduction. INDICATION: Back pain COMPARISON: CT of the thoracic and lumbar spine 05/11/2022. FINDINGS: Progressed acute compression fracture at T12 now with 80% height loss and slightly increased bony retropulsion causing mild to moderate spinal canal stenosis at T12. No other acute compression deformities. Chronic bilateral pars defects of L5 with mild anterolisthesis of L5 on S1. Mild anterolisthesis of L4 and L5. Mild multilevel facet arthritis. Mild multilevel disc height loss. Mild multilevel spinal canal and neural foraminal stenosis. Included views of the abdomen demonstrate aortic atherosclerosis. No lytic or sclerotic bone lesions. IMPRESSION: Progressed acute compression fracture of T12 now with 80% height loss and slightly increased in bony retropulsion causing mild to moderate spinal canal stenosis at T11-T12. Dictated by: Dictated on workstation # [id number]
== END ==
LOC: RAD 15:20
PROVIDERS: ATTEND Physician Assistant
DX: J32.0 Chronic maxillary sinusitis (principal); S22.080A Wedge compression fracture of T11-T12 vertebra, initial encounter for closed fracture; M51.34 Other intervertebral disc degeneration, thoracic region; M48.04 Spinal stenosis, thoracic region; X58.XXXA Exposure to other specified factors, initial encounter
CPT/HCPCS: 70450; 72125; 72131

== ENCOUNTER 2023-01-15 17:38 | Emergency (ER) | payer MEDICARE ==
[~2023-01-15] VITALS: Ht 160 cm; Wt 60.7 kg
[~2023-01-15 17:38] MED LIST changes: +FAMO-356 PO; -FAMO20TA3 PO
--- NOTE | 2023-01-15 18:27 | ED General ---
General Chief Complaint: Lower Extremity Stated Complaint: LEGS SWELLING + PAIN IN BOTH, NUMBNESS IN ARMS Nursing Triage Note: C\\O INCREASED PAIN AND SWELLING IN HER BILATERAL LEGS, INTERMITTANT NUMBNESS AND TINGLING UPPER EXTREMITIES, AND MILD SOB. Source of Information: Patient Exam Limitations: No Limitations History of Present Illness Date Seen by Provider: Jan 15, 2023 Time Seen by Provider: 18:06 Allergies and Home Medications Allergies Coded Allergies: Sulfa (Sulfonamide Antibiotics) (Verified Allergy, Unknown, 01/15/23) amoxicillin (Verified Allergy, Unknown, 01/15/23) ciprofloxacin (Verified Allergy, Unknown, 01/15/23) gluten (Verified Allergy, Unknown, 01/15/23) iodamide meglumine (Verified Allergy, Unknown, 01/15/23) lactose (Verified Adverse Reaction, Mild, Diarrhea, 01/15/23) Uncoded Allergies: CONTRAST DYE (Allergy, Unknown, 12/19/13) Patient Home Medication List ALPRAZolam (Xanax Tablet) 0.25 Mg Tablet, 0.0625 MG PO QIDACHS, (Reported) Entered as Reported by: MARCIAL RICKETTS on 02/18/16 1008 Albuterol Sulfate (Ventolin Hfa) 1 Puff Puff, 2 PUFF IH Q4H PRN for SHORTNESS OF BREATH, (Reported) Entered as Reported by: RANDY KUMAR on 10/11/17 1630 Amlodipine Besylate (Amlodipine Besylate) 10 Mg Tablet, 10 MG PO DAILY Prescribed by: JA DURAN on 10/13/17918 Aspirin (Aspirin) 81 Mg Tab.chew, 81 MG PO DAILY Prescribed by: JA DURAN on 10/13/17918 Atorvastatin Calcium (Lipitor) 40 Mg Tablet, 80 MG PO HS Prescribed by: JA DURAN on 10/13/17918 Cholecalciferol (Vitamin D3) (Vitamin D3) 5,000 Unit Capsule, 5,000 UNIT PO DAILY, (Reported) Entered as Reported by: MARCIAL RICKETTS on 02/18/16 1008 Clopidogrel Bisulfate (Clopidogrel) 75 Mg Tablet, 75 MG PO DAILY, (Reported) Entered as Reported by: FLORIAN AL on 02/17/16 0015 Cyanocobalamin (Vitamin B-12) (Vitamin B-12) 1,000 Mcg Tablet, 1,000 MCG PO DAILY, (Reported) Entered as Reported by: MINERVA TEMPLE on 01/01/16 1115 Famotidine (Famotidine) 20 Mg Tablet, 20 MG PO BID PRN for acid reflux, (Reported) Entered as Reported by: MARCIAL RICKETTS on 02/18/16 1008 Fluticasone Propionate (Flovent Hfa 110 mcg) 1 Ea Aero, 2 PUFF IH BID, (Reported) Entered as Reported by: MARCIAL RICKETTS on 02/18/16 1008 Lactobacillus Combo No.6 (Probiotic Complex) 1 Each Tablet, 1 CAP PO DAILY, (Reported) Entered as Reported by: MEL BABCOCK on 01/21/12 1528 Lisinopril/Hydrochlorothiazide (Lisinopril-Hctz 10-12.5 mg Tab) 10 Mg-12.5 Mg Tablet, 1 EACH PO DAILY Prescribed by: FARIBA NUÑEZ on 01/15/23 1925 Metoprolol Succinate (Metoprolol Succinate) 100 Mg Tab.er.24h, 100 MG PO DAILY Prescribed by: JA DURAN on 10/13/17 0919 Oxycodone HCl (Oxycodone HCl) 5 Mg Tablet, 2.5 MG PO Q6H PRN for PAIN-MODERATE (5-7) Prescribed by: CAIO RESENDEZ on 05/11/22 1207 Phenylephrine HCl (Nasal [place]) 30 Ml [place], 1 SPRAY NSEACH TID PRN for Allergies, (Reported) Entered as Reported by: RANDY KUMAR on 10/11/17 1630 Past Zmicsra-Oedpad-Wnzsfv Hx Patient Social History Tobacco Use?: No Smoking Status: Current Everyday Smoker Smokeless Tobacco Frequency: Current Everyday User Use of E-Cig and/or Vaping dev: No Substance use?: No Pt feels they are or have been: No Immunizations Up To Date Tetanus Booster (TDap): More than 5yrs Influenza Vaccine Up-to-Date: No; Not Current First/Initial COVID19 Vaccinat: 5 SHOTS Seasonal Allergies Seasonal Allergies: No Past Medical History Surgery/Hospitalization HX: HTN Surgeries: Yes (Hemorrhoids, benign bladder tumor, neck vertebra fusion, left cataraact) Hysterectomy Respiratory: Yes Sleep Apnea, COPD Currently Using CPAP: No Currently Using BIPAP: No Cardiac: Yes (cardiac cath "years ago" by dr shetty, pt unsure of year) Hypertension Neurological: No Reproductive Disorders: No Female Reproductive Disorders: Denies [employer] History: Hysterectomy Sexually Transmitted Disease: No HIV/AIDS: No Genitourinary: Yes (bladder tumor removed) Bladder Infection Gastrointestinal: Yes Gastroesophageal Reflux, Hiatal Hernia Musculoskeletal: Yes (Hx hammertoe surgery) Arthritis Endocrine: No HEENT: Yes Cataract Loss of Vision: Denies Hearing Impairment: Denies Cancer: No Psychosocial: Yes Anxiety Integumentary: No Blood Disorders: No Adverse Reaction/Blood Tranf: No Family Medical History Parkinson's disease G8 BROTHER Heart Disease, Other Conditions/Hx Physical Exam Vital Signs Vital Signs - First Documented 01/15/23 17:55 Temp 37.0 Pulse 76 Resp 18 B/P (MAP) 190/87 (121) Pulse Ox 98 O2 Delivery Room Air Capillary Refill : Height, Weight, BMI Height: 5'2.00" Weight: 131lbs. 4.0oz. [id number]; 23.00 BMI Method:Stated Progress/Results/Core Measures Suspected Sepsis SIRS Temperature: Pulse: 76 Respiratory Rate: 18 Laboratory Tests 01/15/23 18:25: White Blood Count 6.9 Blood Pressure 190 /87 Mean: 121 Laboratory Tests 01/15/23 18:25: Creatinine 0.84, Platelet Count 247, Total Bilirubin 0.7 Results/Orders Lab Results Laboratory Tests Test 01/15/23 18:25 Range/Units White Blood Count 6.9 4.3-11.0 10^3/uL Red Blood Count 3.94 3.80-5.11 10^6/uL Hemoglobin 11.9 11.5-16.0 g/dL Hematocrit 37 35-52 % Mean Corpuscular Volume 94 80-99 fL Mean Corpuscular Hemoglobin 30 25-34 pg Mean Corpuscular Hemoglobin Concent 32 32-36 g/dL Red Cell Distribution Width 13.9 10.0-14.5 % Platelet Count 247 130-400 10^3/uL Mean Platelet Volume 9.6 9.0-12.2 fL Immature Granulocyte % (Auto) 0 % Neutrophils (%) (Auto) 51 42-75 % Lymphocytes (%) (Auto) 31 12-44 % Monocytes (%) (Auto) 12 0-12 % Eosinophils (%) (Auto) 5 0-10 % Basophils (%) (Auto) 1 0-10 % Neutrophils # (Auto) 3.5 1.8-7.8 10^3/uL Lymphocytes # (Auto) 2.1 1.0-4.0 10^3/uL Monocytes # (Auto) 0.8 0.0-1.0 10^3/uL Eosinophils # (Auto) 0.4 H 0.0-0.3 10^3/uL Basophils # (Auto) 0.1 0.0-0.1 10^3/uL Immature Granulocyte # (Auto) 0.0 0.0-0.1 10^3/uL Sodium Level 136 135-145 MMOL/L Potassium Level 3.8 3.6-5.0 MMOL/L Chloride Level 102 98-107 MMOL/L Carbon Dioxide Level 25 21-32 MMOL/L Anion Gap 9 5-14 MMOL/L Blood Urea Nitrogen 15 7-18 MG/DL Creatinine 0.84 0.60-1.30 MG/DL Estimat Glomerular Filtration Rate 66 BUN/Creatinine Ratio 18 Glucose Level 97 70-105 MG/DL Calcium Level 9.4 8.5-10.1 MG/DL Corrected Calcium 9.4 8.5-10.1 MG/DL Total Bilirubin 0.7 0.1-1.0 MG/DL Aspartate Amino Transf (AST/SGOT) 33 5-34 U/L Alanine Aminotransferase (ALT/SGPT) 24 0-55 U/L Alkaline Phosphatase 84 40-136 U/L B-Type Natriuretic Peptide 131.9 H <100.0 PG/ML Total Protein 7.2 6.4-8.2 GM/DL Albumin 4.0 3.2-4.5 GM/DL My Orders Orders - FARIBA SHEA MD Bnp [place] (01/15/23 18:22) Cbc And Automated Diff (01/15/23 18:22) Comprehensive Metabolic Panel (01/15/23 18:22) Ed Iv/Invasive Line Start (01/15/23 18:22) Lisinopril Tablet (Lisinopril Tablet) (01/15/23 19:30) Hydrochlorothiazide Tablet (Hydrochlorot (01/15/23 19:30) Vital Signs/I&O 01/15/23 17:55 Temp 37.0 Pulse 76 Resp 18 B/P (MAP) 190/87 (121) Pulse Ox 98 O2 Delivery Room Air Capillary Refill : Blood Pressure Mean: 121 Departure Impression Primary Impression: Uncontrolled hypertension Additional Impression: Lower extremity edema Disposition: 01 HOME, SELF-CARE Condition: Stable Departure-Patient Inst. Decision time for Depature: 19:24 Referrals: JA DURAN MD (PCP/Family) Primary Care Physician Patient Instructions: High Blood Pressure ED, Low Salt Diet, Swelling Add. Discharge Instructions: Amlodipine (Norvasc) has a known adverse effect of causing swelling. This may be part of the reason you are swelling. Please stop amlodipine and replace with lisinopril/HCTZ as prescribed. Then discuss at your appointment with Maame Pereyra on Thursday. Your dose of lisinopril/hydrochlorothiazide may need to be increased if your blood pressure is not adequately controlled. Please discuss with Maame Pereyra. Elevate your feet to the level of your knees or above and to the level of your heart or above as much as possible when you are at rest. Drink plenty of water and eat a low-salt diet. If making these changes does not satisfactorily improve your swelling and blood pressure control after a few weeks, you may need further evaluation with Dr. Shetty, possibly a repeat echocardiogram. Return to the emergency room if you have worsening symptoms despite following these instructions. All discharge instructions reviewed with patient and/or family. Voiced understanding. Scripts Lisinopril/Hydrochlorothiazide (Lisinopril-Hctz 10-12.5 mg Tab) 10 Mg-12.5 Mg Tablet 1 EACH PO DAILY, #30 TAB Prov: FARIBA SHEA MD 01/15/23 Copy Copies To 1: JA DURAN MD Copies To 2: LULU SHETTY MD, JOSHUA T MD Jan 15, 2023 18:27
[2023-01-15 18:32] LABS: BASOPHILS # (AUTO) 0.1 10^3/uL (0.0-0.1); BASOPHILS % (AUTO) 1 % (0-10); EOSINOPHILS # (AUTO) 0.4 10^3/uL (0.0-0.3); EOSINOPHILS % (AUTO) 5 % (0-10); HEMATOCRIT 37 % (35-52); HEMOGLOBIN 11.9 g/dL (11.5-16.0); LYMPHOCYTES # (AUTO) 2.1 10^3/uL (1.0-4.0); LYMPHOCYTES % (AUTO) 31 % (12-44); MEAN CORPUSCULAR HEMOGLOBIN 30 pg (25-34); MEAN CORPUSCULAR HGB CONC 32 g/dL (32-36); MEAN CORPUSCULAR VOLUME 94 fL (80-99); MEAN PLATELET VOLUME 9.6 fL (9.0-12.2); MONOCYTES # (AUTO) 0.8 10^3/uL (0.0-1.0); MONOCYTES % (AUTO) 12 % (0-12); NEUTROPHILS # (AUTO) 3.5 10^3/uL (1.8-7.8); NEUTROPHILS % (AUTO) 51 % (42-75); PLATELET COUNT 247 10^3/uL (130-400); WHITE BLOOD COUNT 6.9 10^3/uL (4.3-11.0)
[2023-01-15 18:42] LABS: POTASSIUM 3.8 MMOL/L (3.6-5.0)
[2023-01-15 18:43] LABS: CALCIUM 9.4 MG/DL (8.5-10.1)
[2023-01-15 18:44] LABS: TOTAL PROTEIN 7.2 GM/DL (6.4-8.2)
[2023-01-15 18:46] LABS: BILIRUBIN,TOTAL 0.7 MG/DL (0.1-1.0)
[2023-01-15 18:48] LABS: CREATININE SERUM 0.84 MG/DL (0.60-1.30)
[2023-01-15] MEDS ORDERED: LISI1TAB44 PO (19:25)
[2023-01-15 19:42] VITALS: BP 160/66
== END 2023-01-15 20:00 | disposition home or self-care (01) ==
LOC: EDUNIT# 17:38 → ER 17:42
DX: I10 Essential (primary) hypertension (principal); R60.0 Localized edema; F17.200 Nicotine dependence, unspecified, uncomplicated
CPT/HCPCS: 36415; 80053; 83880; 85025

== ENCOUNTER → 2023-02-24 | Outpatient (CLI) | payer MEDICARE ==
[~2023-02-24] MED LIST changes: +LISI1TAB44 PO; +NEBI5TAB2 PO
--- NOTE | 2023-02-24 13:51 | Diagnostic Imaging Report ---
INDICATION: Postmenopausal screening. COMPARISON: None. FINDINGS: AP Spine L1-L4: [BMD (g/cm2): 0.757] [T-Score: -3.7] [Z-Score: -1.5] [BMD Previous: 1.107] [BMD % Change: -31.6*] LT Hip Neck: [BMD (g/cm2): 0.592] [T-Score: -3.2] [Z-Score: -0.5] LT Hip Total: [BMD (g/cm2):0.608] [T-Score:-3.2] [Z-Score: -0.5] [BMD Previous: 0.885] [BMD % Change: -31.3*] RT Hip Neck: [BMD (g/cm2):0.622] [T-Score:-3.0] [Z-Score:-0.3] RT Hip Total: [BMD (g/cm2):0.620] [T-score:-3.1] [Z-Score:-0.4] [BMD Previous:0.854] [BMD % Change:-27.4*] *Indicates significant change from prior examination based on 95% confidence level. World Health Organization criteria for BMD interpretation classify patients as Normal (T-score at or above -1.0), Osteopenic (T-score between -1.0 and -2.5) or Osteoporotic (T-score at or below -2.5). LIMITATIONS AND MODIFICATION: None. FRACTURE RISK (FRAX SCORE): The ten year probability of (%): Major Osteoporotic Fracture: [na] Hip Fracture: [na] IMPRESSION: 1. Osteoporosis. 2. Baseline examination. 3. See below National Osteoporosis Foundation guidelines on when to potentially initiate pharmacologic therapy. Based on the National Osteoporosis Foundation Guidelines, pharmacologic treatment should be initiated in any of the following, unless clinical conditions suggest otherwise: * Any patient with prior fragility fracture of the hip or vertebrae. A spine fracture indicates 5X risk for subsequent spine fracture and 2X risk for subsequent hip fracture. * Osteoporosis (T-score <-2.5). * Postmenopausal women and men age 50 and older with low bone mass/osteopenia (T-score between -1.0 and -2.5) by DXA and 10-year major osteoporotic fracture greater than 20% or a 10-year probability of hip fracture greater than 3%. These fracture risks are supplied above in the FRAX score, if applicable. * Clinician judgement and/or patient preferences may indicate treatment for people with 10-year fracture probabilities above or below these levels. Dictated by: Dictated on workstation # [id number]
== END ==
LOC: RAD 12:53
PROVIDERS: ATTEND Physician Assistant
DX: Z13.820 Encounter for screening for osteoporosis (principal); M81.0 Age-related osteoporosis without current pathological fracture; Z78.0 Asymptomatic menopausal state
CPT/HCPCS: 77080